=== PATIENT | female | born 1945 | race Caucasian/White ===

== ENCOUNTER 2020-10-07 20:37 | Emergency (ER) | payer MEDICARE, SELFPAY ==
--- NOTE | ~2020-10-07 | CT_ITS ---
EXAMINATION: CT brain wo [facility] EXAM DATE: 10/07/2020 22:30 INDICATION: Weakness, confusion. Headache. Dizziness. TECHNIQUE: Spiral CT of the head was performed without contrast. Axial, coronal and sagittal images were reviewed. The dose-length product (DLP) for this examination was 681.00 mGy-cm. The exposure w as tailored according to patient size, and iterative reconstruction (ASIR) was used as additional dos e reduction technique. There is no prior study for comparison. FINDINGS: There is no acute intraparenchymal hemorrhage. No evidence of intraparenchymal brain mass lesion. No evidence of acute infarction. Please note that initial head CT has limited sensitivity f or small or acute infarctions. There is mild periventricular and subcortical hypodensity, nonspecific but probably related to small vessel ischemic disease. There is moderate prominence of the sulci a nd ventricles related to cerebral atrophy. There is intracranial carotid arteriosclerosis. There a re no extra-axial collections. There is no mass effect or midline shift. Patient has had bilateral ocular lens surgery. Soft tissue is unremarkable. The visualized sinuses and mastoid air cells are well aerated. IMPRESSION: 1. No acute intracranial findings. 2. Chronic age related findings. Reviewed, dictated and finalized at location A.
--- NOTE | ~2020-10-07 | XR_ITS ---
EXAMINATION: XR chest 1V portable EXAM DATE: 10/07/2020 22:30 INDICATION: Weakness with SOB. Diabetic. TECHNIQUE: Portable AP frontal chest x-ray was obtained. There is no prior study for comparison. FINDINGS: Hyperinflation. No confluent consolidation, pneumothorax or pleural effusion suspected. The bones are osteopenic. There are bony degenerative changes. Probable moderate-sized gastroesophageal hiatal hernia. IMPRESSION: 1. No acute cardiopulmonary findings. 2. Moderate hiatal hernia. 3. Hyperinflation. Reviewed, dictated and finalized at location A.
[2020-10-07 21:10] VITALS: BP 144/88; PULSE 105; RESP 20; TEMP 36.6; O2SAT 96
[2020-10-07 21:41] LABS: Glucose Point of Care > 450 mg/dl (65-105)
--- NOTE | 2020-10-07 21:41 | ECG_ITS ---
Measurements Intervals [place] Rate: 92 P: 23 ID: [id number] QRS: -26 QRSD: 102 T: 41 QT: 343 QTc: 425 Interpretive Statements SINUS RHYTHM DELAYED PRECORDIAL R/S TRANSITION BORDERLINE ECG Electronically Signed On 10-08-2020 6:27:06 CDT by Guille Villagran D.O.
--- NOTE | 2020-10-07 21:49 | ED.WEAKNESS ---
HPI - Weakness General Chief complaint: Weakness Stated complaint: high blood sugar Time Seen by Provider: 10/07/20 21:12 Source: patient, family, RN notes reviewed and old records reviewed Mode of arrival: ambulatory Limitations: no limitations History of Present Illness HPI Narrative: BG was > 600. Pt felt very weak MD Complaint: generalized weakness and lack of energy Onset (ago): day(s) (1) Duration: constant Location: generalized Severity: mild Relieving factors: none Exacerbating factors: none Related Data Home Medications Medication Instructions Recorded Confirmed allopurinol 300 mg PO DAILY 10/07/20 10/07/20 apixaban [Eliquis] 2.5 mg PO BID 10/07/20 10/07/20 atorvastatin 40 mg PO DAILY 10/07/20 10/07/20 isosorbide mononitrate 20 mg PO DAILY 10/07/20 10/07/20 melatonin 10 mg PO HS PRN 10/07/20 10/07/20 pantoprazole 40 mg PO QAM 10/07/20 10/07/20 trazodone 100 mg PO HS 10/07/20 10/07/20 Allergies Allergy/AdvReac Type Severity Reaction Status Date / Time Penicillins Allergy Unknown Verified 10/07/20 21:49 Review of Systems Review of Systems: All systems reviewed & are unremarkable except as noted in HPI and below Constitutional: Constitutional: Reports as per HPI and Reports no additional constitutional complaints Eyes: Eyes: Reports as per HPI and Reports no additional eye complaints ENT: Reports system reviewed and no additional complaints, except as documented and Reports as per HPI Cardiovascular: Cardiovascular: Reports as per HPI and Reports no additional cardiovascular complaints Respiratory: Respiratory: Reports as per HPI and Reports no additional respiratory complaints Gastrointestinal: Gastrointestinal: Reports as per HPI and Reports no additional gastrointestinal complaints Genitourinary: Genitourinary: Reports no additional female genitourinary complaints and Reports as per HPI Musculoskeletal: Musculoskeletal: Reports no additional musculoskeletal complaints and Reports as per HPI Integumentary/Breasts: Skin/Breast: Reports system reviewed and no additional complaints, except as docu and Reports as per HPI Neurologic: Reports system reviewed and no additional complaints, except as documented, Reports as per HPI and Reports weakness Psychiatric: Psychiatric: Reports no additional psychiatric complaints and Reports as per HPI Endocrine: Endocrine: Reports no additional endocrine complaints and Reports as per HPI Hematologic/Lymphatic: Hematologic/Lymphatic: Reports no additional hematologic/lymphatic complaints and Reports as per HPI Allergic/Immunologic: Allergic/Immunologic: Reports no additional allergic/immunologic complaints and Reports as per HPI [facility] Past Medical History Medical History (Updated 10/08/20 @ 00:52 by Austin Adair MD) Diabetes mellitus Exam Const: General: no acute distress and alert Nutritional Appearance: well nourished Orientation/consciousness: patient oriented x3 HENMT: Head: normal to inspection Ears: external ears normal and TM's normal bilaterally General nose exam: Normal external nose present and Normal nares present Face and sinus: normal facial exam Mouth: Yes lip normal, Yes moist mucous membranes and Yes Abnormal oral and palatal mucosa present Teeth and gingiva: dentition normal Eyes: Conjunctivae: conjunctivae normal Pupils: Equal, round and reactive pupils present EOM: EOMs intact bilaterally Neck: Neck: normal visual inspection Chest: Chest palpation & inspection: normal inspection of the chest Resp: Effort & Inspection: normal respiratory effort Auscultation: clear to auscultation bilaterally Cardio: Rate: regular rate Rhythm: regular rhythm GI: GI Palp: Yes Soft to palpation (non-tender) : General: Yes no CVA tenderness Back/Spine/Pelvis: Back: no CVA tenderness Skin: General skin exam: normal color Rashes: no rashes Neuro: General: patient oriented x3, moves all extremities, no focal motor deficits and
[2020-10-07] MEDS: INSULIN HUMAN REGULAR (*BKC) 100 UNITS/ML 15 UNITS IV PUSH (21:56)
[2020-10-07] MEDS: SODIUM CHLORIDE 0.9% IV 1,000 ML 999 ML IV CONT ×2 (21:57→23:01)
[2020-10-07 22:15] LABS: Hematocrit 31.9 % (35.0-42.0); Hemoglobin 10.1 g/dL (11.7-13.8); Immature Granulocyte Absolute 0.07 K/mm3 (0.00-0.00); Immature Granulocyte Percent A 0.8 % (0.0-0.0); Lymphocytes Absolute Auto 0.52 K/mm3 (1.10-4.50); Lymphocytes Percent Auto 6.3 % (18.0-42.0); Mean Corpuscular HGB Conc 31.7 g/dL (32.0-36.0); Mean Corpuscular Hemoglobin 25.6 pg (27.0-31.0); Mean Corpuscular Volume 80.8 fL (78.0-102.0); Mean Platelet Volume 10.4 fl (9.2-11.8); Monocytes Absolute Auto 0.03 K/mm3 (0.10-0.90); Monocytes Percent Auto 0.4 % (2.0-11.0); Neutrophils Absolute Auto 7.7 K/mm3 (1.7-7.2); Neutrophils Percent Auto 92.5 % (50.0-70.0); Platelet Count Result 315 K/mm3 (150-420); Red Blood Count 3.95 M/mm3 (4.20-5.40); Red Cell Distribution Width 15.9 % (11.6-14.4); White Blood Count 8.3 K/mm3 (4.8-10.8)
[2020-10-07 22:30] LABS: Hemoglobin A1C 13.6 % (<5.7)
[2020-10-07 22:34] LABS: Lactic Acid Reflex 2.5 mmol/L (0.4-2.0)
[2020-10-07 22:37] LABS: Alanine Aminotransferase 13 U/L (14-59); Albumin Level 3.2 g/dL (3.4-5.0); Alkaline Phosphatase 114 U/L (46-116); Anion Gap 18 mmol/L (8-16); Aspartate Amino Transferase < 10 U/L (15-37); Bilirubin,Total 0.3 mg/dL (0.00-1.00); Blood Urea Nitrogen 68 mg/dL (7-18); Calcium 8.2 mg/dL (8.5-10.1); Carbon Dioxide 18 mmol/L (21-32); Chloride 93 mmol/L (98-108); Estimated CRCL calculation 16 ml/min; Estimated Glomerular Filt Rate 19; Lipase 165 U/L (73-393); Potassium 4.8 mmol/L (3.5-5.1); Sodium 129 mmol/L (136-145); Total Protein 7.3 g/dL (6.4-8.2)
[2020-10-07 22:40] LABS: Acetone Negative (Negative)
[2020-10-07 22:46] LABS: Glucose > 800 mg/dL (70-99); Osmolality Calculated 327 mOsm/kg (285-295)
[2020-10-07 22:51] LABS: Glucose Point of Care > 450 mg/dl (65-105)
[2020-10-07] MEDS: INSULIN HUMAN REGULAR (*BKC) 100 UNITS/ML 20 UNITS IV PUSH (23:01)
[2020-10-07 23:18] LABS: HCO3 VBG 19.3 mEq/l (24.0-30.0); PCO2 VBG 39.2 mmHg (42.0-48.0); PO2 VBG 29.1 mmHg (35.0-45.0); pH VBG 7.31 (7.33-7.43)
[2020-10-07 23:19] LABS: Device ROOM AIR
[2020-10-07 23:25] LABS: Add Urine Microscopic? YES; Appearance Urine Clear (Clear); Bilirubin Urine Negative (Negative); Blood Urine Negative (Negative); Color Urine Light Yellow (Yellow); Glucose Urine UA 3+ (Negative); Ketones Urine Negative (Negative); Leukocyte Esterase Ur Negative (Negative); Nitrate Urine Negative (Negative); Protein Urine Negative (Negative); Specific Grav Ur <= 1.005 (1.010-1.020); Urobilinogen Urine 0.2 mg/dL (0.2-1.0)
[2020-10-07 23:31] LABS: Bacteria Urine None seen /hpf; RBC Urine 0-2 /hpf (0-2); Squamous Epithelial Cell Urine None seen /hpf (Few); WBC Urine 0-3 /hpf (0-3)
[2020-10-07 23:47] LABS: Glucose Point of Care 357 mg/dl (65-105)
[2020-10-08 00:49] LABS: Glucose Point of Care 275 mg/dl (65-105)
[2020-10-08] MEDS: SODIUM BICARBONATE 8.4% 50 MEQ/50 ML SYRINGE IV PUSH (00:49)
[2020-10-08 00:54] VITALS: BP 130/94; PULSE 95; RESP 20; TEMP 36.6; O2SAT 96
== END 2020-10-08 00:56 | disposition home or self-care (01) ==
PROVIDERS: Emergency Provider Emergency Medicine
DX: E11.9 Type 2 diabetes mellitus without complications (principal)
CPT/HCPCS: 36415; 70450; 71045; 80053; 81001; 82010; 82803; 82948; 83036; 83605; 83690; 85025; 93005; 96361; 96374; 96375; 96376; 99283; 99284; J1815; J7030

== ENCOUNTER 2022-08-24 21:17 | Emergency (ER) | payer MEDICARE, SELFPAY ==
--- NOTE | ~2022-08-24 | CT_ITS ---
EXAMINATION: CT brain wo con INDICATION: Seizure and headache COMPARISON: 10/07/2020 TECHNIQUE: Standard unenhanced head CT. The dose-length product (DLP) was 605.33 mGy-cm. The mA was a djusted according to patient size. Iterative reconstruction technique was employed. FINDINGS: There is no acute intraparenchymal hemorrhage. No evidence of mass lesion. No evidence of a cute infarction. There is mild periventricular and subcortical hypodensity probably related to small vessel ischemic disease. There is mild prominence of the sulci and ventricles related to cerebral atr ophy. Intracranial calcified cerebral atherosclerosis is noted. There are no extra-axial collections. There is no mass effect or midline shift. Changes in the globes are likely from ocular lens surgery. The visualized sinuses and mastoid air cells are well aerated. IMPRESSION: 1. No acute intracranial abnormality. 2. Age related findings. Reviewed, dictated and finalized at location F.
[2022-08-24 21:17] VITALS: BP 158/96; PULSE 104; RESP 18; TEMP 36.4; O2SAT 96
[2022-08-24] MEDS: diphenhydrAMINE HCl INJ 50 MG/ML VIAL 25 MG IV PUSH (22:43)
[2022-08-24] MEDS: SODIUM CHLORIDE 0.9% IV 2,000 ML 999 ML IV CONT (22:43)
[2022-08-24] MEDS: PROCHLORPERAZINE EDISYLATE 10 MG/2 ML VIAL IV PUSH (22:44)
[2022-08-24 23:38] VITALS: PULSE 98; RESP 17
[2022-08-24 23:39] VITALS: BP 168/78; PULSE 94; RESP 19; O2SAT 97
[2022-08-24 23:56] VITALS: PULSE 92; RESP 17
--- NOTE | 2022-08-24 23:58 | ED.GENADULT ---
HPI - General Adult General Chief complaint: Headache Stated complaint: saul munoz Time Seen by Provider: 08/24/22 21:33 History of Present Illness HPI narrative: this is a 69-year-old female presenting ED with a chief complaint of headache. It started around 5:00 p.m.. It started in the front of her head and is now throughout her entire skull. It is 10 out 10 intensity. It is getting worse. She has had headaches in the past but feels this 1 is worse in intensity. No exacerbating alleviating factors. No loss of consciousness visual changes or neurologic deficits. She has taken Tylenol and oxycodone with no relief. No trauma Related Data Home Medications Medication Instructions Recorded Confirmed allopurinol 300 mg tablet 300 mg PO DAILY 10/07/20 10/07/20 apixaban 2.5 mg tablet (Eliquis) 2.5 mg PO BID 10/07/20 10/07/20 atorvastatin 40 mg tablet 40 mg PO DAILY 10/07/20 10/07/20 isosorbide mononitrate 20 mg tablet 20 mg PO DAILY 10/07/20 10/07/20 melatonin 10 mg tablet 10 mg PO HS PRN Insomnia 10/07/20 10/07/20 pantoprazole 40 mg tablet,delayed 40 mg PO QAM 10/07/20 10/07/20 release trazodone 100 mg tablet 100 mg PO HS 10/07/20 10/07/20 Allergies Allergy/AdvReac Type Severity Reaction Status Date / Time Penicillins Allergy Unknown Verified 10/07/20 21:49 [facility] Past Medical History Medical History Diabetes mellitus Exam Narrative: APPEARANCE: No apparent distress. Head: atraumatic. EYES: EOMI, NOSE: Atraumatic NECK: Trachea midline RESPIRATORY: No increased rate of breathing CARDIOVASCULAR: RRR, ABDOMINAL: Non-distended MUSCULOSKELETAl: No obvious deformities NEURO: Alert. Cranial nerves 2-12 grossly intact. Sensation light touch, motor function cerebellar function intact for 4 extremities. Gait exam was deferred SKIN:: Warm, dry. Normal color PSYCHIATRIC: Normal affect Course Vital Signs Vital signs: Vital Signs Temperature 97.6 F 08/24/22 21:17 Pulse Rate 104 H 08/24/22 21:17 Respiratory Rate 18 08/24/22 21:17 Blood Pressure 158/96 H 08/24/22 21:17 Pulse Oximetry 96 08/24/22 21:17 Oxygen Delivery Room Air 08/24/22 21:17 Temperature 97.6 F 08/24/22 21:17 Pulse Rate 93 08/25/22 00:00 Respiratory Rate 17 08/25/22 00:00 Blood Pressure 150/78 H 08/25/22 00:00 Pulse Oximetry 98 08/25/22 00:00 Oxygen Delivery Room Air 08/24/22 21:17 Medical Decision Making MDM Narrative Medical decision making narrative: -Presentation: 77-year-old female presenting with severe headache. 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 She will be discharged back to fpc with return precautions. -RX Vital Signs Vital Signs: Vital Signs Temperature 97.6 F 08/24/22 21:17 Pulse Rate 104 H 08/24/22 21:17 Respiratory Rate 18 08/24/22 21:17 Blood Pressure 158/96 H 08/24/22 21:17 Pulse Oximetry 96 08/24/22 21:17 Oxygen Delivery Room Air 08/24/22 21:17 Temperature 97.6 F 08/24/22 21:17 Pulse Rate 93 08/25/22 00:00 Respiratory Rate 17 08/25/22 00:00 Blood Pressure 150/78 H 08/25/22 00:00 Pulse Oximetry 98 08/25/22 00:00 Oxygen Delivery Room Air 08/24/22 21:17 Discharge Plan Discharge Clinical Impression: Headache Patient Disposition: Home, Self-Care Condition: Stable Instructions: Antibi
[2022-08-25] VITALS: BP 150/78; PULSE 93; RESP 17; O2SAT 98
[2022-08-25 01:14] VITALS: BP 153/92; PULSE 96; RESP 20; O2SAT 95
== END 2022-08-25 03:24 ==
PROVIDERS: Emergency Provider Emergency Medicine
DX: R51.9 Headache, unspecified (principal); E11.9 Type 2 diabetes mellitus without complications; Z79.01 Long term (current) use of anticoagulants; Z79.84 Long term (current) use of oral hypoglycemic drugs
CPT/HCPCS: 70450; 96361; 96374; 96375; 99284; J0780; J1200; J7030

== ENCOUNTER 2023-05-13 18:01 | Inpatient (IN) | payer MEDICARE, MEDICAID, SELFPAY ==
[2023-05-13] VITALS (8 sets, daily range): BP systolic 122–161; BP diastolic 73–99; PULSE 102–121; RESP 15–23; TEMP 36.4; O2SAT 95–100
--- NOTE | ~2023-05-13 | XR_ITS ---
EXAMINATION: XR chest 1V portable Exam Date/Time: 05/13/2023 18:45 PORTFOLIO STRATEGIST HISTORY: SOB, recent rsv PNA dx. WHEEZING. HX COPD Comparison: 10/07/2020. RESULT: Lines, tubes, and devices: Coronary stent. Lungs and pleura: Senescent/emphysematous change. No focal consolidation, pleural effusion, or pneum othorax. Cardiomediastinal silhouette: Stable. Hiatal hernia. Other: No acute osseous or upper abdominal finding. IMPRESSION: No acute cardiopulmonary process. Reviewed, dictated and finalized at location K. FOLIO STRATEGIST
--- NOTE | ~2023-05-13 | CT_ITS ---
EXAMINATION: CTA chest PE protocol DATE: 05/13/2023 21:16 INDICATION: SOB, elev Dimer, tachypneic, tachycardia TECHNIQUE: Computed tomography angiography (CTA) of the chest was performed with 100 mL Omnipaque-350 intravenous contrast timed to evaluate the pulmonary arteries. Coronal maximum intensity projection 3D-reconstructions were created by the technologist. The dose-length product (DLP) was 385.49 mGy-cm. Automated exposure control and iterative reconstruction technique were employed. COMPARISON: X-ray chest, same date. FINDINGS: Lung parenchyma and airways: Senescent changes. Bilateral scar/atelectasis.. Pleura: Unremarkable. Thoracic inlet, axillae and chest wall: Unremarkable. Thoracic aorta: Moderate arch calcification. 8 x 14 mm focal outpouching off the inferior aspect of t he aortic arch, with associated calcified and noncalcified plaque. No significant dilation or dissect ion. Mediastinum: Moderate hiatal hernia. Heart and pericardium: Left ventricular hypertrophy. Aortic valve calcifications. Coronary artery calcifications: Moderate. Coronary stent. Upper abdomen: 14 mm indeterminate density left renal upper pole lesion. Bones: No acute osseous finding. Multilevel endplate deformities as can be seen with osteoporosis. Mi ld height loss and vertebroplasty cement in an upper lumbar vertebral body Pulmonary arteries: Study quality: Adequate. No pulmonary emboli detected. IMPRESSION: No CT evidence of acute pulmonary embolus. No acute process detected in the chest. 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 14 mm indeterminate density left upper pole renal lesion, recommend nonemergent but timely MRI or CT without and with contrast for further evaluation. Reviewed, dictated and finalized at location K. T SUPERVISOR
--- NOTE | ~2023-05-13 | XR_ITS ---
EXAMINATION: XR chest 2V DATE: 05/15/2023 12:20 INDICATION: COPD, flu positive TECHNIQUE: PA and lateral views of the chest are obtained. COMPARISON: 05/13/2023 FINDINGS: The lungs are free of acute opacities. No pleural effusion or pneumothorax. The heart size is normal. A moderate-sized sliding hiatal hernia is noted. There is moderate thoracic spondylosis. V ertebroplasty changes noted in the lumbar spine. There is a healed fracture of the proximal left reed marlen. IMPRESSION: 1. No acute cardiopulmonary abnormality. Reviewed, dictated and finalized at location L. ECTION SYSTEMS TECHNICIAN
--- NOTE | 2023-05-13 18:22 | ECG_ITS ---
Measurements Intervals [place] Rate: 107 P: 12 CA: 140 QRS: -34 QRSD: 86 T: 12 QT: 329 QTc: 440 Interpretive Statements SINUS TACHYCARDIA LEFT AXIS DEVIATION [QRS AXIS < -30] PATTERN CONSISTENT WITH PULMONARY DISEASE BORDERLINE ECG COMPARED TO ECG 10/07/2020 21:54:31 SINUS TACHYCARDIA NOW PRESENT LEFT-AXIS DEVIATION NOW PRESENT Electronically Signed On 05-13-2023 18:31:51 STRAINER TENDER by Dc Mendez M.D.
--- NOTE | 2023-05-13 18:39 | ED.SOB ---
HPI - SOB/Dyspnea General Chief Complaint: Shortness of Breath/Dyspnea Stated Complaint: Shortness of breath Time Seen by Provider: 05/13/23 18:20 Source: patient and family (daughter (Shirlene) and son (Marcus)) Mode of arrival: ambulatory Limitations: no limitations History of Present Illness HPI Narrative: 77-year-old female past medical history COPD not on oxygen presents with shortness of breath labored breathing. She was recently diagnosed with RSV and pneumonia at [facility] in [place] and was on a course of antibiotic though cannot recall the name. Her symptoms had started 04/19/23, when she moved into [facility] living. Patient has been having diarrhea though attributes this to the recent antibiotic she has been on. Denies any lower extremity edema. She is on sliding scale insulin for her diabetes. SHe has been having a cough productive of yellow sputum. No chest pain. patient denies history of congestive heart failure although daughter states it is was listed as a diagnosis during a recent hospitalization. Not on a diuretic or any CHF specific medications. Patient is also concerned she has thrush given that she often gets this after breathing treatments. Related Data Home Medications Medication Instructions Recorded Confirmed allopurinol 300 mg tablet 300 mg PO DAILY 10/07/20 05/14/23 isosorbide mononitrate 20 mg tablet 20 mg PO DAILY 10/07/20 05/14/23 melatonin 10 mg tablet 10 mg PO HS PRN Insomnia 10/07/20 05/14/23 pantoprazole 40 mg tablet,delayed 40 mg PO BID 10/07/20 05/14/23 release albuterol sulfate 2.5 mg/3 mL 2.5 mg inhalation DAILY 05/14/23 05/14/23 (0.083 %) solution for nebulization amitriptyline 50 mg tablet 50 mg PO HS 05/14/23 05/14/23 benzonatate 100 mg capsule 100 mg PO PRN PRN Cough 05/14/23 05/14/23 budesonide-formoterol HFA 160 2 puff inhalation BID 05/14/23 05/14/23 mcg-4.5 mcg/actuation aerosol inhaler (Breyna) denosumab 60 mg/mL subcutaneous 60 mg subcut Q6M 05/14/23 05/14/23 syringe (Prolia) docusate sodium 100 mg capsule 100 mg PO PRN PRN Constipation 05/14/23 05/14/23 glipizide 2.5 mg tablet, extended 2.5 mg PO BID PRN hydration 05/14/23 05/14/23 release 24 hr hydroxyzine HCl 25 mg tablet 25 mg PO PRN PRN Itching 05/14/23 05/14/23 insulin aspart U-100 100 unit/mL See Rx Instructions .Route .COMPLEX 05/14/23 05/14/23 (3 mL) subcutaneous pen (Novolog FlexPen U-100 Insulin aspart) insulin glargine 100 unit/mL (3 14 unit subcut HS 05/14/23 05/14/23 mL) subcutaneous pen (Basaglar KwikPen U-100 Insulin) lidocaine HCl 2 % mucosal solution See Rx Instructions .Route .COMPLEX 05/14/23 05/14/23 (Lidocaine Viscous) naloxone 4 mg/actuation nasal spray 4 mg intranasal PRN PRN Opioid 05/14/23 05/14/23 Overdose nystatin 100,000 unit/mL oral 100,000 unit mucous membrane BID 05/14/23 05/14/23 suspension oxycodone-acetaminophen 5 mg-325 5 tablet PO PRN PRN Pain 05/14/23 05/14/23 mg tablet pen needle, diabetic, safety 30 05/14/23 05/14/23 gauge x 1/3 (Novofine Autocover) simvastatin 40 mg tablet 40 mg PO HS 05/14/23 05/14/23 triamcinolone acetonide 0.5 % See Rx Instructions .Route .COMPLEX 05/14/23 05/14/23 topical cream Allergies Allergy/AdvReac Type Severity Reaction Status Date / Time ciprofloxacin Allergy Unknown Verified 05/13/23 21:53 cyclobenzaprine Allergy Unknown Verified 05/13/23 21:53 hydromorphone Allergy Unknown Verified 05/13/23 21:53 latex Allergy Unknown Verified 05/13/23 21:53 Penicillins Allergy Unknown Verified 05/13/23 18:08 Sulfa (Sulfonamide Allergy Unknown Verified 05/13/23 21:53 Antibiotics) tetracycline Allergy Unknown Verified 05/13/23 21:53 [facility] Past Medical History Medical History Congestive heart failure Diabetes mellitus with insulin therapy Social History Social History (Updated 05/16/23 @ 10:35 by Sofi Garcia MD) Smoking packs per day: 2 Smo
[2023-05-13 18:41] LABS: Basophils Percent Auto 0.4 % (0.2-1.2); Eosinophils Absolute Auto 0.2 K/mm3 (0-0.3); Eosinophils Percent Auto 3.1 % (0-4.4); Hematocrit 28.4 % (37.0-47.0); Hemoglobin 8.7 g/dL (12.0-15.0); Immature Granulocyte Absolute 0.01 K/mm3 (0.00-0.031); Immature Granulocyte Percent A 0.2 % (0-0.5); Lymphocytes Absolute Auto 1.26 K/mm3 (0.9-3.2); Lymphocytes Percent Auto 26.2 % (18.3-44.2); Mean Corpuscular HGB Conc 30.6 g/dl (32-36); Mean Corpuscular Hemoglobin 24.6 pg (26-34); Mean Corpuscular Volume 80.2 fl (80-100); Mean Platelet Volume 10.5 fl (7.4-10.4); Monocytes Absolute Auto 0.3 K/mm3 (0.1-0.6); Monocytes Percent Auto 6.7 % (2.6-8.5); Neutrophils Absolute Auto 3.1 K/mm3 (1.3-6.7); Neutrophils Percent Auto 63.4 % (45.5-73.1); Platelet Count Result 293 k/mm3 (150-375); Red Blood Count 3.54 M/mm3 (4.2-5.4); Red Cell Distribution Width 18.6 % (11.5-14.5); White Blood Count 4.8 K/mm3 (4.5-10.0)
[2023-05-13 18:52] LABS: Alanine Aminotransferase 13 U/L (6-35); Albumin Level 3.9 g/dL (3.5-5.1); Alkaline Phosphatase 106 U/L (38-126); Anion Gap 11 mmol/L (8-16); Aspartate Amino Transferase 23 U/L (14-36); Bilirubin,Total 0.4 mg/dL (0.2-1.3); Blood Urea Nitrogen 24 mg/dL (7-17); Calcium 9.4 mg/dL (8.4-10.2); Carbon Dioxide 20 mmol/L (22-30); Chloride 108 mmol/L (98-107); Estimated CRCL calculation 42 ml/min; Estimated Glomerular Filt Rate > 60; Glucose 110 mg/dL (65-110); Magnesium 0.9 mg/dL (1.6-2.3); Potassium 4.3 mmol/L (3.4-5.0); Sodium 139 mmol/L (137-145)
[2023-05-13 18:54] LABS: D Dimer 1.24 ug/mL (<0.48)
[2023-05-13 19:03] LABS: Troponin I < 0.012 ng/mL (0.000-0.034)
[2023-05-13 19:27] LABS: NT Pro B Type Natriuretic Pept 4720 pg/mL (19.9-100)
[2023-05-13] MEDS: SODIUM CHLORIDE 0.9% IV 1,000 ML 999 ML IV CONT ×2 (19:49→23:00)
[2023-05-13] MEDS: MAGNESIUM SULF 2 GM/WATER 50ML 2 GM/50 ML BAG IVPB (20:30)
[2023-05-13] MEDS: ALBUTEROL SULFATE NEB 2.5 MG/3 ML INH INHALATION (22:10)
[2023-05-13] MEDS: IPRATROPIUM 0.5 MG/ALBUTEROL SULFATE 2.5 MG AMPUL.NEB 3 ML INHALATION (22:11)
[2023-05-13] MEDS: AZITHROMYCIN 250 MG TABLET 500 MG PO (22:54)
[2023-05-13] MEDS: predniSONE 20 MG TABLET 60 MG PO (22:54)
[2023-05-13 23:09] LABS: Glucose Point of Care 122 mg/dl (65-105)
[2023-05-14] VITALS (12 sets, daily range): BP systolic 134–150; BP diastolic 77–89; PULSE 100–118; RESP 18–26; TEMP 36.4–36.6; O2SAT 94–100; BMI 26.8
--- NOTE | 2023-05-14 00:20 | ADMGEN ---
This patient, Mayte Sanchez, was admitted to [facility] Room 304-02 at 2350. Patient/family oriented to hospital policies and general routines including ID bracelet, bed and alarms, visiting hours, pain management, procedures, bathroom and other care routines, personal items, smoking policy, room service/diet, and visiting hours. Information on how to activate the Rapid Response Team has been discussed. Patient/Family are encouraged to report perceived risks to care and to ask questions if they do not understand what they are told or what they should do.
[2023-05-14 00:23] LABS: Influenza A QL RT-PCR Positive (Negative); Influenza B QL RT-PCR Negative (Negative); RSV RNA, RT-PCR Negative (Negative); SARS-CoV-2 RNA PCR Negative (Negative)
--- NOTE | 2023-05-14 00:28 | PM.IMHP ---
H&P: HPI History of Present Illness Date/Time: 05/14/23 00:28 Chief Complaint: Shortness of breath. This is a 77-year-old female patient with a past medical history of COPD type 2 diabetes mellitus current right disease who came to the emergency room complaining of shortness of breath. Patient said that she was diagnosed with RSV pneumonia at [facility] seen at [place] about a month ago and was given a course of antibiotics. Patient said that she is still having a cough and having shortness of breath. Patient is awake alert not in any acute distress. Denies any fever chills dizziness lightheadedness no blurry vision no chest pains complains of shortness of breath and dry cough. Denies any nausea no vomiting no diarrhea no dysuria no muscle and joint pains. Vital signs in the emergency room was stable. CBC showed WBC count of 4.8 hemoglobin 8.7 hematocrit 28.4 platelets count 293. D-dimer was 1.24. CMP showed sodium 139 potassium 4.3 chloride of 108 carbon dioxide 20 BUN 24 creatinine 0.90. Glucose 122. Magnesium 0.9. ProBNP 4700 in 20. Influenza A positive. COVID RSV negative. CTA chest showed no evidence of acute pulmonary embolus. No acute process detected in the chest. 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 40 mm indeterminate density left upper pole renal lesion. Chest x-ray showed no acute cardiopulmonary process. Review of Systems Review of Systems: Twelve point review of system is done and is only positive what is dictated in the history of present illness. [facility] Past Medical History Medical History (Updated 05/14/23 @ 00:51 by Max Acevedo Ala, MD) Congestive heart failure Diabetes mellitus Meds Home Medications and Allergies Home Medications Medication Instructions Recorded Confirmed Type allopurinol 300 mg tablet 300 mg PO DAILY 10/07/20 10/07/20 History apixaban 2.5 mg tablet (Eliquis) 2.5 mg PO BID 10/07/20 10/07/20 History atorvastatin 40 mg tablet 40 mg PO DAILY 10/07/20 10/07/20 History isosorbide mononitrate 20 mg tablet 20 mg PO DAILY 10/07/20 10/07/20 History melatonin 10 mg tablet 10 mg PO HS PRN Insomnia 10/07/20 10/07/20 History pantoprazole 40 mg tablet,delayed 40 mg PO QAM 10/07/20 10/07/20 History release trazodone 100 mg tablet 100 mg PO HS 10/07/20 10/07/20 History glipizide 2.5 mg tablet, extended 2.5 mg PO BID #20 tabs 10/08/20 Rx release 24 hr Allergies Allergy/AdvReac Type Severity Reaction Status Date / Time ciprofloxacin Allergy Unknown Verified 05/13/23 21:53 cyclobenzaprine Allergy Unknown Verified 05/13/23 21:53 hydromorphone Allergy Unknown Verified 05/13/23 21:53 latex Allergy Unknown Verified 05/13/23 21:53 Penicillins Allergy Unknown Verified 05/13/23 18:08 Sulfa (Sulfonamide Allergy Unknown Verified 05/13/23 21:53 Antibiotics) tetracycline Allergy Unknown Verified 05/13/23 21:53 Vital Signs Vital Signs - 24 hr 05/13/23 18:05 05/13/23 20:30 05/13/23 22:12 Temperature 97.6 F Pulse Rate 120 H 102 H 110 H Respiratory Rate 22 H 19 19 Blood Pressure 150/99 H 161/88 H Pulse Oximetry 96 100 Oxygen Delivery Room Air 05/13/23 22:23 05/13/23 23:25 05/13/23 23:30 Temperature Pulse Rate 120 H 118 H 121 H Respiratory Rate 23 H 18 Blood Pressure 127/79 Pulse Oximetry 95 Oxygen Delivery 05/13/23 23:30 05/13/23 23:31 05/13/23 23:36 Temperature Pulse Rate 118 H Respiratory Rate 15 Blood Pressure 122/73 Pulse Oximetry 96 96 98 Oxygen Delivery Room Air Room Air Exam Const: Other: Awake alert not in any distress. HENMT: Other: Normocephalic atraumatic. Neck: Other: Supple no thyromegaly. Resp: Other: Clear to auscultation bilaterally. Cardio: Other: S1-S2 regular no murmur heard. GI: Other: Soft nontender good bowel sounds. Neuro: Other: No focal deficit. Extrem: Other: No pedal edema. H&P: Results
[2023-05-14] MEDS: ACETAMINOPHEN 325 MG TABLET 650 MG PO ×2 (00:41→15:21)
[2023-05-14] MEDS: IPRATROPIUM 0.5 MG/ALBUTEROL SULFATE 2.5 MG AMPUL.NEB 3 ML INHALATION ×4 (01:56→19:33)
[2023-05-14 02:00] LABS: Glucose Point of Care 180 mg/dl (65-105)
[2023-05-14] MEDS: methylPREDNISolone SOD SUCC 40 MG VIAL 36.5 MG IV PUSH ×2 (09:53→20:21)
[2023-05-14] MEDS: OSELTAMIVIR PHOSPHATE 75 MG CAPSULE PO ×2 (09:53→20:22)
[2023-05-14 12:09] LABS: Glucose Point of Care 346 mg/dl (65-105)
[2023-05-14] MEDS: INSULIN ASPART (*BKC) 100 UNITS/ML SUB-Q ×2 (12:48→17:31)
[2023-05-14] MEDS: BENZONATATE 100 MG CAPSULE 200 MG PO ×2 (15:21→20:22)
[2023-05-14 16:21] LABS: Glucose Point of Care 415 mg/dl (65-105)
--- NOTE | 2023-05-14 16:56 | PM.IMPN ---
Progress Note: A&P Assessment and Plan (1) COPD exacerbation: Code(s): J44.1 - Chronic obstructive pulmonary disease with (acute) exacerbation Status: Acute (2) Asthma exacerbation in COPD: Code(s): J44.1 - Chronic obstructive pulmonary disease with (acute) exacerbation; J45.901 - Unspecified asthma with (acute) exacerbation Status: Acute (3) Diabetes mellitus: Code(s): E11.9 - Type 2 diabetes mellitus without complications Status: Acute (4) Influenza A: Code(s): J10.1 - Influenza due to other identified influenza virus with other respiratory manifestations Status: Acute Plan Place patient under observation status Oxygen via nasal cannula ordered to keep O2 sats more than 92% Solu-Medrol 36.5 mg IV q12 hrs started on the floor to be tapered as per clinical response Patient started on oral Tamiflu for influenza A Continue with influenza precautions Sputum cultures ordered Follow-up on blood and sputum cultures DuoNeb breathing treatments ordered as needed Ambulate on the floor with assistance DC planning once patient is medically stable and breathing is back to baseline ? Patient seen and examined at bedside during my morning rounds ? Collaborated with patient's nurse at the bedside in detail and addressed all concerns ? Labs, electrolytes, radiology, investigations and test results reviewed ? Consult/Nursing/Ancilliary notes on the chart reviewed and appreciated ? Spoke with patient/family at the bedside and answered all the questions that they had Repeat labs in a.m. Electrolyte replacement as per protocol. Patient will be monitored very closely on the floor. Further recommendations as per the hospital course. Time Spent With Patient Time with patient: 15 - 25 minutes Subjective Date/time seen: 05/14/23 16:56 Interval history: Patient lying in bed. Feels better since admission Review of Systems Review of Systems: 14 systems were reviewed with pertinent positives and negatives per HPI. Except as documented in the HPI/progress notes, all other systems were reviewed and are negative. All systems reviewed & are unremarkable except as noted in HPI and below Exam Narrative: PHYSICAL EXAMINATION: Vital signs: Please see the chart General physical exam: Patient lying in bed, pleasant and cooperative with exam, appears to be weak tired and fatigued Head/eyes: Atraumatic, EOMI, PERRLA ENT: Moist mucous membranes, nasal passages clear Neck: Supple, full range of motion, trachea midline CVS: S1 + S2, regular rate and rhythm, no murmurs Respiratory: Bilaterally fair air entry in both lung rankin, ++ B/L crackles, symmetric chest expansion, ++ scattered bilateral wheezing Abdomen: Soft, non-tender, bowel sounds +ve, no organomegaly Extremities: No clubbing, no cyanosis, no edema, no calf tenderness Musculoskeletal: Moves all, adequate range of motion, no muscle spasms Skin: Warm, dry, no jaundice, no cyanosis Neurological: Awake, alert, oriented x 3, cranial nerves II-XII intact, no focal neurological deficits Psychiatric: Normal mood, non suicidal Objective Data Vital Signs Vital Signs: Vital Signs - 24 hr 05/13/23 18:05 05/13/23 20:30 05/13/23 22:12 Temperature 36.4 C Pulse Rate 120 H 102 H 110 H Respiratory Rate 22 H 19 19 Blood Pressure 150/99 H 161/88 H Pulse Oximetry 96 100 Oxygen Delivery Room Air 05/13/23 22:23 05/13/23 23:25 05/13/23 23:30 Temperature Pulse Rate 120 H 118 H 121 H Respiratory Rate 23 H 18 Blood Pressure 127/79 Pulse Oximetry 95 Oxygen Delivery 05/13/23 23:30 05/13/23 23:31 05/13/23 23:36 Temperature Pulse Rate 118 H Respiratory Rate 15 Blood Pressure 122/73 Pulse Oximetry 96 96 98 Oxygen Delivery Room Air Room Air 05/14/23 00:30 05/14/23 01:57 05/14/23 02:08 Temperature 36.5 C Pulse Rate 113 H 115 H 112 H Respiratory Rate 20 20 20 Blood Pressure 135/79 Pulse Oximetry 94 Oxygen
[2023-05-14] MEDS: INSULIN ASPART (*BKC) 100 UNITS/ML 6 UNITS SUB-Q (17:30)
--- NOTE | 2023-05-14 17:51 | PC.NURSE ---
Pt blood sugar has been increasing throughout the day. Pt has been increased from low dose to moderate dose sliding scale and 6 units one time dose ordered. Pt has participated and contributed in plan of care. Pt reports having headache and was treated with PO tylenol. Pt was also given tessalon pearls to help with coughing. Pt has been monitored for any changes in status and will continue to be monitored. Pt has participated and contributed in plan of care.
[2023-05-14] MEDS: MAGNESIUM SULF 4 GM/WATER100ML 4 GM/100 ML BAG IVPB (20:22)
[2023-05-14 20:48] LABS: Glucose Point of Care 324 mg/dl (65-105)
[2023-05-14] MEDS: INSULIN GLARGINE (*BKC) 100 UNITS/ML 14 UNITS SUB-Q (21:07)
[2023-05-15] VITALS (11 sets, daily range): BP systolic 124–138; BP diastolic 76–83; PULSE 102–113; RESP 16–22; TEMP 35.6–36.6; O2SAT 96–98
[2023-05-15] MEDS: IPRATROPIUM 0.5 MG/ALBUTEROL SULFATE 2.5 MG AMPUL.NEB 3 ML INHALATION ×4 (02:24→19:36)
[2023-05-15] MEDS: ACETAMINOPHEN 325 MG TABLET 650 MG PO ×3 (06:01→20:08)
[2023-05-15] MEDS: BENZONATATE 100 MG CAPSULE 200 MG PO ×3 (06:01→21:24)
[2023-05-15 07:56] LABS: Glucose Point of Care 312 mg/dl (65-105)
[2023-05-15] MEDS: OSELTAMIVIR PHOSPHATE 75 MG CAPSULE PO ×2 (08:14→20:09)
[2023-05-15] MEDS: INSULIN ASPART (*BKC) 100 UNITS/ML SUB-Q ×4 (08:15→21:19)
[2023-05-15 08:51] LABS: Hematocrit 26.5 % (37.0-47.0); Hemoglobin 8.1 g/dL (12.0-15.0); Mean Corpuscular HGB Conc 30.6 g/dl (32-36); Mean Corpuscular Hemoglobin 24.3 pg (26-34); Mean Corpuscular Volume 79.3 fl (80-100); Mean Platelet Volume 10.1 fl (7.4-10.4); Platelet Count Result 323 k/mm3 (150-375); Red Blood Count 3.34 M/mm3 (4.2-5.4); Red Cell Distribution Width 18.2 % (11.5-14.5); White Blood Count 11.7 K/mm3 (4.5-10.0)
[2023-05-15 08:58] LABS: Anion Gap 11 mmol/L (8-16); Blood Urea Nitrogen 24 mg/dL (7-17); Calcium 8.9 mg/dL (8.4-10.2); Carbon Dioxide 19 mmol/L (22-30); Chloride 105 mmol/L (98-107); Estimated CRCL calculation 42 ml/min; Estimated Glomerular Filt Rate > 60; Glucose 316 mg/dL (65-110); Magnesium 2.6 mg/dL (1.6-2.3); Phosphorus 2.9 mg/dL (2.5-4.5); Potassium 4.1 mmol/L (3.4-5.0); Sodium 135 mmol/L (137-145)
[2023-05-15] MEDS: methylPREDNISolone SOD SUCC 40 MG VIAL 36.5 MG IV PUSH ×2 (08:58→20:08)
[2023-05-15 09:19] LABS: Band Neutrophils Percent 23 % (0-6); Monocytes Absolute Manual 0.11 K/mm3 (0.1-0.90); Monocytes Percent Manual 1 % (3-9); Neutrophils Percent Manual 70 % (46-73); Total Cells Counted 100
[2023-05-15 09:20] LABS: Hypochromasia 1+ (NORMAL); Ovalocytes 1+ (NORMAL); Platelet Estimate Adequate (Adequate); Schistocytes None Seen (NORMAL)
[2023-05-15 11:47] LABS: Glucose Point of Care 296 mg/dl (65-105)
--- NOTE | 2023-05-15 12:34 | PCCCNOTE ---
On 05/15/23, the student, [Jelly Bolivar ], provided care and completed [facility] documentation on this patient. I have reviewed the student's documentation and agree with the findings.
[2023-05-15 17:09] LABS: Glucose Point of Care 321 mg/dl (65-105)
--- NOTE | 2023-05-15 17:49 | PM.IMPN ---
Progress Note: A&P Assessment and Plan (1) COPD exacerbation: Code(s): J44.1 - Chronic obstructive pulmonary disease with (acute) exacerbation Status: Acute (2) Asthma exacerbation in COPD: Code(s): J44.1 - Chronic obstructive pulmonary disease with (acute) exacerbation; J45.901 - Unspecified asthma with (acute) exacerbation Status: Acute (3) Diabetes mellitus: Code(s): E11.9 - Type 2 diabetes mellitus without complications Status: Acute (4) Influenza A: Code(s): J10.1 - Influenza due to other identified influenza virus with other respiratory manifestations Status: Acute Plan Place patient under observation status Patient remains on room air oxygen and is not requiring any supplemental oxygen Solu-Medrol 36.5 mg IV q12 hrs started on the floor to be tapered as per clinical response Patient has many elevated WBCs secondary to steroids Patient started on oral Tamiflu for influenza A Continue with influenza precautions Sputum cultures ordered Follow-up on blood and sputum cultures DuoNeb breathing treatments ordered as needed Ambulate on the floor with assistance DC planning once patient is medically stable and breathing is back to baseline ? Patient seen and examined at bedside during my morning rounds ? Collaborated with patient's nurse at the bedside in detail and addressed all concerns ? Labs, electrolytes, radiology, investigations and test results reviewed ? Consult/Nursing/Ancilliary notes on the chart reviewed and appreciated ? Spoke with patient/family at the bedside and answered all the questions that they had Repeat labs in a.m. Electrolyte replacement as per protocol. Patient will be monitored very closely on the floor. Further recommendations as per the hospital course. Time Spent With Patient Time with patient: 15 - 25 minutes Subjective Date/time seen: 05/15/23 17:49 Interval history: Patient seen and evaluated at bedside. Shortness of breath is slowly improving. Still complains of myalgias and weakness Review of Systems Review of Systems: 14 systems were reviewed with pertinent positives and negatives per HPI. Except as documented in the HPI/progress notes, all other systems were reviewed and are negative. All systems reviewed & are unremarkable except as noted in HPI and below Exam Narrative: PHYSICAL EXAMINATION: Vital signs: Please see the chart General physical exam: Patient lying in bed, pleasant and cooperative with exam, appears to be weak tired and fatigued Head/eyes: Atraumatic, EOMI, PERRLA ENT: Moist mucous membranes, nasal passages clear Neck: Supple, full range of motion, trachea midline CVS: S1 + S2, regular rate and rhythm, no murmurs Respiratory: Bilaterally fair air entry in both lung rankin, ++ B/L crackles, symmetric chest expansion, ++ scattered bilateral wheezing Abdomen: Soft, non-tender, bowel sounds +ve, no organomegaly Extremities: No clubbing, no cyanosis, no edema, no calf tenderness Musculoskeletal: Moves all, adequate range of motion, no muscle spasms Skin: Warm, dry, no jaundice, no cyanosis Neurological: Awake, alert, oriented x 3, cranial nerves II-XII intact, no focal neurological deficits Psychiatric: Normal mood, non suicidal Objective Data Vital Signs Vital Signs: Vital Signs - 24 hr 05/14/23 19:34 05/14/23 19:41 05/14/23 22:00 Temperature 36.6 C Pulse Rate 102 H 101 H 112 H Respiratory Rate 18 18 20 Blood Pressure 150/89 H Pulse Oximetry 100 Oxygen Delivery 05/15/23 02:27 05/15/23 02:33 05/15/23 06:00 Temperature 36.2 C L Pulse Rate 103 H 103 H 106 H Respiratory Rate 18 18 22 H Blood Pressure 138/83 Pulse Oximetry 98 Oxygen Delivery 05/15/23 09:03 05/15/23 09:03 05/15/23 09:20 Temperature Pulse Rate 110 H 113 H Respiratory Rate 20 20 Blood Pressure Pulse Oximetry 98 Oxygen Delivery Room Air 05/15/23 08:15 05/15/23 13:36 05/15/23 13:46 Temperature
[2023-05-15 20:46] LABS: Glucose Point of Care 223 mg/dl (65-105)
[2023-05-15] MEDS: INSULIN GLARGINE (*BKC) 100 UNITS/ML 14 UNITS SUB-Q (21:20)
[2023-05-16] VITALS (11 sets, daily range): BP systolic 125–142; BP diastolic 78–92; PULSE 88–114; RESP 15–20; TEMP 36.2–36.8; O2SAT 94–100
[2023-05-16] MEDS: IPRATROPIUM 0.5 MG/ALBUTEROL SULFATE 2.5 MG AMPUL.NEB 3 ML INHALATION ×4 (02:03→20:19)
[2023-05-16] MEDS: BENZONATATE 100 MG CAPSULE 200 MG PO ×3 (06:18→21:12)
[2023-05-16 06:53] LABS: Anion Gap 10 mmol/L (8-16); Blood Urea Nitrogen 25 mg/dL (7-17); Calcium 9.5 mg/dL (8.4-10.2); Carbon Dioxide 19 mmol/L (22-30); Chloride 109 mmol/L (98-107); Estimated CRCL calculation 47 ml/min; Estimated Glomerular Filt Rate > 60; Glucose 292 mg/dL (65-110); Potassium 4.1 mmol/L (3.4-5.0); Sodium 138 mmol/L (137-145)
[2023-05-16 07:26] LABS: Glucose Point of Care 268 mg/dl (65-105)
[2023-05-16 07:56] LABS: Basophils Percent Auto 0.1 % (0.2-1.2); Hematocrit 28.6 % (37.0-47.0); Hemoglobin 8.9 g/dL (12.0-15.0); Immature Granulocyte Absolute 0.11 K/mm3 (0.00-0.031); Immature Granulocyte Percent A 0.9 % (0-0.5); Lymphocytes Absolute Auto 0.49 K/mm3 (0.9-3.2); Lymphocytes Percent Auto 3.8 % (18.3-44.2); Mean Corpuscular HGB Conc 31.1 g/dl (32-36); Mean Corpuscular Hemoglobin 24.7 pg (26-34); Mean Corpuscular Volume 79.4 fl (80-100); Mean Platelet Volume 10.7 fl (7.4-10.4); Monocytes Absolute Auto 0.3 K/mm3 (0.1-0.6); Monocytes Percent Auto 2.6 % (2.6-8.5); Neutrophils Percent Auto 92.6 % (45.5-73.1); Platelet Count Result 439 k/mm3 (150-375); Red Cell Distribution Width 18.3 % (11.5-14.5); White Blood Count 12.9 K/mm3 (4.5-10.0)
[2023-05-16] MEDS: OSELTAMIVIR PHOSPHATE 75 MG CAPSULE PO ×2 (08:33→21:12)
[2023-05-16] MEDS: methylPREDNISolone SOD SUCC 40 MG VIAL 36.5 MG IV PUSH (08:34)
[2023-05-16] MEDS: INSULIN ASPART (*BKC) 100 UNITS/ML SUB-Q ×3 (08:36→17:25)
[2023-05-16 08:38] LABS: Anisocytosis 1+ (NORMAL); Hypochromasia 1+ (NORMAL); Microcytosis 1+ (NORMAL); Platelet Estimate Increased (Adequate)
[2023-05-16 08:39] LABS: Crenated RBC 1+ (NORMAL); Ovalocytes 1+ (NORMAL); Schistocytes None Seen (NORMAL)
[2023-05-16 11:34] LABS: Glucose Point of Care 232 mg/dl (65-105)
[2023-05-16] MEDS: PANTOPRAZOLE 40 MG TABLET PO ×2 (12:36→21:12)
--- NOTE | 2023-05-16 13:58 | PM.IMPN ---
Progress Note: A&P Assessment and Plan (1) COPD exacerbation: Code(s): J44.1 - Chronic obstructive pulmonary disease with (acute) exacerbation Status: Acute (2) Asthma exacerbation in COPD: Code(s): J44.1 - Chronic obstructive pulmonary disease with (acute) exacerbation; J45.901 - Unspecified asthma with (acute) exacerbation Status: Acute (3) Diabetes mellitus: Code(s): E11.9 - Type 2 diabetes mellitus without complications Status: Acute (4) Influenza A: Code(s): J10.1 - Influenza due to other identified influenza virus with other respiratory manifestations Status: Acute Plan Patient advanced to full inpatient status Patient remains on room air oxygen and is not requiring any supplemental oxygen Increased solu-Medrol to 60 mg mg IV q12 hrs started on the floor to be tapered as per clinical response Patient has elevated WBCs secondary to steroids Patient likely having superimposed bacterial bronchitis with greenish sputum production as the chest x-ray ruled out pneumonia Started patient on IV azithromycin 500mg daily Continue with oral Tamiflu for influenza A Continue with influenza precautions Sputum cultures ordered Follow-up on blood and sputum cultures DuoNeb breathing treatments ordered as needed Ambulate on the floor with assistance DC planning once patient is medically stable and breathing is back to baseline ? Patient seen and examined at bedside during my morning rounds ? Collaborated with patient's nurse at the bedside in detail and addressed all concerns ? Labs, electrolytes, radiology, investigations and test results reviewed ? Consult/Nursing/Ancilliary notes on the chart reviewed and appreciated ? Spoke with patient/family at the bedside and answered all the questions that they had Repeat labs in a.m. Electrolyte replacement as per protocol. Patient will be monitored very closely on the floor. Further recommendations as per the hospital course. Time Spent With Patient Time with patient: 15 - 25 minutes Subjective Date/time seen: 05/16/23 13:58 Interval history: Patient lying in bed during my morning rounds. Still complains of hacking cough and producing greenish sputum. Feels weak and tired. Review of Systems Review of Systems: 14 systems were reviewed with pertinent positives and negatives per HPI. Except as documented in the HPI/progress notes, all other systems were reviewed and are negative. All systems reviewed & are unremarkable except as noted in HPI and below Exam Narrative: PHYSICAL EXAMINATION: Vital signs: Please see the chart General physical exam: Patient lying in bed, pleasant and cooperative with exam, appears to be weak tired and fatigued Head/eyes: Atraumatic, EOMI, PERRLA ENT: Moist mucous membranes, nasal passages clear Neck: Supple, full range of motion, trachea midline CVS: S1 + S2, regular rate and rhythm, no murmurs Respiratory: Bilaterally fair air entry in both lung rankin, ++ B/L crackles, symmetric chest expansion, ++ scattered bilateral wheezing Abdomen: Soft, non-tender, bowel sounds +ve, no organomegaly Extremities: No clubbing, no cyanosis, no edema, no calf tenderness Musculoskeletal: Moves all, adequate range of motion, no muscle spasms Skin: Warm, dry, no jaundice, no cyanosis Neurological: Awake, alert, oriented x 3, cranial nerves II-XII intact, no focal neurological deficits Psychiatric: Normal mood, non suicidal Objective Data Vital Signs Vital Signs: Vital Signs - 24 hr 05/15/23 14:00 05/15/23 19:36 05/15/23 20:55 Temperature 35.6 C L 36.6 C Pulse Rate 109 H 102 H 109 H Respiratory Rate 16 20 18 Blood Pressure 132/76 124/80 Pulse Oximetry 96 98 Oxygen Delivery 05/15/23 20:00 05/16/23 02:05 05/15/23 19:50 Temperature Pulse Rate 111 H 106 H Respiratory Rate 20 20 Blood Pressure Pulse Oximetry Oxygen Delivery Room Air 05/16/23 02:11 05/16/23 06:00 05/16/23 08:19 Temper
[2023-05-16] MEDS: ACETAMINOPHEN 325 MG TABLET 650 MG PO (14:56)
[2023-05-16] MEDS: AZITHROMYCIN 500 MG/NS 250 ML 500 MG/250 ML BAG 250 MG IVPB (14:57)
[2023-05-16 16:21] LABS: Glucose Point of Care 263 mg/dl (65-105)
[2023-05-16] MEDS: INSULIN GLARGINE (*BKC) 100 UNITS/ML 14 UNITS SUB-Q (21:12)
[2023-05-16] MEDS: methylPREDNISolone SOD SUCC 125 MG VIAL 60 MG IV PUSH (21:12)
[2023-05-16 21:49] LABS: Glucose Point of Care 187 mg/dl (65-105)
[2023-05-17] VITALS (12 sets, daily range): BP systolic 114–153; BP diastolic 82–97; PULSE 85–110; RESP 18–22; TEMP 35.9–36.4; O2SAT 94–100
[2023-05-17] MEDS: IPRATROPIUM 0.5 MG/ALBUTEROL SULFATE 2.5 MG AMPUL.NEB 3 ML INHALATION ×4 (01:47→19:54)
[2023-05-17] MEDS: BENZONATATE 100 MG CAPSULE 200 MG PO ×3 (04:50→20:24)
[2023-05-17 06:42] LABS: Hematocrit 28.4 % (37.0-47.0); Hemoglobin 8.8 g/dL (12.0-15.0); Immature Granulocyte Absolute 0.11 K/mm3 (0.00-0.031); Immature Granulocyte Percent A 0.9 % (0-0.5); Lymphocytes Absolute Auto 0.47 K/mm3 (0.9-3.2); Mean Corpuscular Hemoglobin 24.4 pg (26-34); Mean Corpuscular Volume 78.9 fl (80-100); Mean Platelet Volume 9.9 fl (7.4-10.4); Monocytes Absolute Auto 0.2 K/mm3 (0.1-0.6); Monocytes Percent Auto 1.6 % (2.6-8.5); Neutrophils Absolute Auto 11.1 K/mm3 (1.3-6.7); Neutrophils Percent Auto 93.5 % (45.5-73.1); Platelet Count Result 447 k/mm3 (150-375); Red Cell Distribution Width 18.2 % (11.5-14.5); White Blood Count 11.8 K/mm3 (4.5-10.0)
[2023-05-17 06:59] LABS: Anion Gap 8 mmol/L (8-16); Blood Urea Nitrogen 23 mg/dL (7-17); Calcium 9.4 mg/dL (8.4-10.2); Carbon Dioxide 21 mmol/L (22-30); Chloride 108 mmol/L (98-107); Estimated CRCL calculation 47 ml/min; Estimated Glomerular Filt Rate > 60; Glucose 279 mg/dL (65-110); Potassium 3.9 mmol/L (3.4-5.0); Sodium 137 mmol/L (137-145)
[2023-05-17 07:37] LABS: Platelet Estimate Increased (Adequate)
[2023-05-17 07:37] LABS: Glucose Point of Care 209 mg/dl (65-105)
[2023-05-17 07:38] LABS: Anisocytosis 1+ (NORMAL); Hypochromasia 1+ (NORMAL); Microcytosis 1+ (NORMAL); Ovalocytes 1+ (NORMAL); Schistocytes None Seen (NORMAL)
[2023-05-17] MEDS: INSULIN ASPART (*BKC) 100 UNITS/ML SUB-Q ×2 (08:01→16:34)
[2023-05-17] MEDS: OSELTAMIVIR PHOSPHATE 75 MG CAPSULE PO ×2 (08:05→20:23)
[2023-05-17] MEDS: PANTOPRAZOLE 40 MG TABLET PO ×2 (08:06→20:24)
[2023-05-17] MEDS: methylPREDNISolone SOD SUCC 125 MG VIAL 60 MG IV PUSH ×2 (08:06→20:24)
[2023-05-17 11:35] LABS: Glucose Point of Care 186 mg/dl (65-105)
--- NOTE | 2023-05-17 14:26 | PM.IMPN ---
Progress Note: A&P Assessment and Plan (1) COPD exacerbation: Code(s): J44.1 - Chronic obstructive pulmonary disease with (acute) exacerbation Status: Acute (2) Asthma exacerbation in COPD: Code(s): J44.1 - Chronic obstructive pulmonary disease with (acute) exacerbation; J45.901 - Unspecified asthma with (acute) exacerbation Status: Acute (3) Diabetes mellitus: Code(s): E11.9 - Type 2 diabetes mellitus without complications Status: Acute (4) Influenza A: Code(s): J10.1 - Influenza due to other identified influenza virus with other respiratory manifestations Status: Acute Plan Patient advanced to full inpatient status Patient remains on room air oxygen and is not requiring any supplemental oxygen Continue solu-Medrol to 60 mg mg IV q12 hrs started on the floor to be tapered as per clinical response Patient has elevated WBCs secondary to steroids Patient likely having superimposed bacterial bronchitis with greenish sputum production as the chest x-ray ruled out pneumonia Started patient on IV azithromycin 500mg daily Patient has a lot of hacking cough with greenish brown sputum Patient started on anti cough meds Acapella and chest PT ordered Continue with oral Tamiflu for influenza A Continue with influenza precautions Sputum cultures ordered Follow-up on blood and sputum cultures DuoNeb breathing treatments ordered as needed Ambulate on the floor with assistance DC planning once patient is medically stable and breathing is back to baseline ? Patient seen and examined at bedside during my morning rounds ? Collaborated with patient's nurse at the bedside in detail and addressed all concerns ? Labs, electrolytes, radiology, investigations and test results reviewed ? Consult/Nursing/Ancilliary notes on the chart reviewed and appreciated ? Spoke with patient/family at the bedside and answered all the questions that they had Repeat labs in a.m. Electrolyte replacement as per protocol. Patient will be monitored very closely on the floor. Further recommendations as per the hospital course. Subjective Date/time seen: 05/17/23 14:26 Interval history: Patient still has wheezing and cough with greenish brown sputum. Still feels weak and tired. Review of Systems Review of Systems: 14 systems were reviewed with pertinent positives and negatives per HPI. Except as documented in the HPI/progress notes, all other systems were reviewed and are negative. All systems reviewed & are unremarkable except as noted in HPI and below Exam Narrative: PHYSICAL EXAMINATION: Vital signs: Please see the chart General physical exam: Patient lying in bed, pleasant and cooperative with exam, appears to be weak tired and fatigued Head/eyes: Atraumatic, EOMI, PERRLA ENT: Moist mucous membranes, nasal passages clear Neck: Supple, full range of motion, trachea midline CVS: S1 + S2, regular rate and rhythm, no murmurs Respiratory: Bilaterally fair air entry in both lung rankin, ++ B/L crackles, symmetric chest expansion, ++ scattered bilateral wheezing Abdomen: Soft, non-tender, bowel sounds +ve, no organomegaly Extremities: No clubbing, no cyanosis, no edema, no calf tenderness Musculoskeletal: Moves all, adequate range of motion, no muscle spasms Skin: Warm, dry, no jaundice, no cyanosis Neurological: Awake, alert, oriented x 3, cranial nerves II-XII intact, no focal neurological deficits Psychiatric: Normal mood, non suicidal Objective Data Vital Signs Vital Signs: Vital Signs - 24 hr 05/16/23 20:19 05/16/23 20:19 05/16/23 20:25 Temperature Pulse Rate 107 H 103 H Respiratory Rate 15 15 Blood Pressure Pulse Oximetry 100 Oxygen Delivery Room Air 05/16/23 20:00 05/16/23 22:00 05/17/23 01:47 Temperature 36.8 C Pulse Rate 97 108 H Respiratory Rate 18 Blood Pressure 141/88 H Pulse Oximetry 99 Oxygen Delivery Room Air 05/17/23 01:54 05/17/23 06:00 05/17/23 0
[2023-05-17] MEDS: AZITHROMYCIN 500 MG/NS 250 ML 500 MG/250 ML BAG 250 MG IVPB (14:41)
[2023-05-17] MEDS: SODIUM CHLORIDE 0.9% IV 100 ML (15:11)
[2023-05-17 16:29] LABS: Glucose Point of Care 251 mg/dl (65-105)
[2023-05-17] MEDS: guaiFENesin 600 MG/DEXTROMETHORPHAN 30 MG SR TAB 12 HR 1 TAB PO (20:23)
[2023-05-17] MEDS: INSULIN GLARGINE (*BKC) 100 UNITS/ML 14 UNITS SUB-Q (20:28)
[2023-05-17 20:36] LABS: Glucose Point of Care 197 mg/dl (65-105)
[2023-05-18] VITALS (13 sets, daily range): BP systolic 99–154; BP diastolic 62–96; PULSE 72–116; RESP 18–24; TEMP 35.8–36.7; O2SAT 95–99
[2023-05-18] MEDS: IPRATROPIUM 0.5 MG/ALBUTEROL SULFATE 2.5 MG AMPUL.NEB 3 ML INHALATION ×4 (02:40→19:37)
[2023-05-18] MEDS: BENZONATATE 100 MG CAPSULE 200 MG PO ×3 (05:47→20:06)
[2023-05-18 06:34] LABS: Basophils Percent Auto 0.1 % (0.2-1.2); Hematocrit 31.9 % (37.0-47.0); Hemoglobin 9.8 g/dL (12.0-15.0); Immature Granulocyte Absolute 0.12 K/mm3 (0.00-0.031); Lymphocytes Absolute Auto 0.49 K/mm3 (0.9-3.2); Lymphocytes Percent Auto 4.2 % (18.3-44.2); Mean Corpuscular HGB Conc 30.7 g/dl (32-36); Mean Corpuscular Hemoglobin 24.3 pg (26-34); Monocytes Absolute Auto 0.3 K/mm3 (0.1-0.6); Monocytes Percent Auto 2.6 % (2.6-8.5); Neutrophils Absolute Auto 10.8 K/mm3 (1.3-6.7); Neutrophils Percent Auto 92.1 % (45.5-73.1); Platelet Count Result 511 k/mm3 (150-375); Red Blood Count 4.04 M/mm3 (4.2-5.4); Red Cell Distribution Width 17.9 % (11.5-14.5); White Blood Count 11.7 K/mm3 (4.5-10.0)
[2023-05-18 06:45] LABS: Anion Gap 9 mmol/L (8-16); Blood Urea Nitrogen 28 mg/dL (7-17); Calcium 9.7 mg/dL (8.4-10.2); Carbon Dioxide 22 mmol/L (22-30); Chloride 104 mmol/L (98-107); Estimated CRCL calculation 47 ml/min; Estimated Glomerular Filt Rate > 60; Glucose 375 mg/dL (65-110); Potassium 3.7 mmol/L (3.4-5.0); Sodium 135 mmol/L (137-145)
[2023-05-18 07:50] LABS: Glucose Point of Care 355 mg/dl (65-105)
[2023-05-18] MEDS: INSULIN ASPART (*BKC) 100 UNITS/ML SUB-Q ×3 (08:20→20:09)
[2023-05-18] MEDS: OSELTAMIVIR PHOSPHATE 75 MG CAPSULE PO ×2 (09:02→20:06)
[2023-05-18] MEDS: guaiFENesin 600 MG/DEXTROMETHORPHAN 30 MG SR TAB 12 HR 1 TAB PO ×2 (09:02→20:06)
[2023-05-18] MEDS: methylPREDNISolone SOD SUCC 125 MG VIAL 60 MG IV PUSH ×2 (09:02→20:06)
[2023-05-18] MEDS: PANTOPRAZOLE 40 MG TABLET PO ×2 (09:02→20:06)
[2023-05-18] MEDS: ENOXAPARIN 40 MG/0.4 ML SYRINGE SUB-Q (09:03)
[2023-05-18 11:39] LABS: Glucose Point of Care 257 mg/dl (65-105)
[2023-05-18] MEDS: AZITHROMYCIN 500 MG/NS 250 ML 500 MG/250 ML BAG 250 MG IVPB (14:45)
[2023-05-18 16:29] LABS: Glucose Point of Care 164 mg/dl (65-105)
[2023-05-18] MEDS: VANCOMYCIN 2,000 MG/NS 500 ML 2,000 MG/500 ML BAG 250 MG IVPB (17:10)
--- NOTE | 2023-05-18 18:01 | PM.IMPN ---
Progress Note: A&P Assessment and Plan (1) COPD exacerbation: Code(s): J44.1 - Chronic obstructive pulmonary disease with (acute) exacerbation Status: Acute (2) Asthma exacerbation in COPD: Code(s): J44.1 - Chronic obstructive pulmonary disease with (acute) exacerbation; J45.901 - Unspecified asthma with (acute) exacerbation Status: Acute (3) Diabetes mellitus: Code(s): E11.9 - Type 2 diabetes mellitus without complications Status: Acute (4) Influenza A: Code(s): J10.1 - Influenza due to other identified influenza virus with other respiratory manifestations Status: Acute Plan Patient advanced to full inpatient status Patient remains on room air oxygen and is not requiring any supplemental oxygen Taper down solu-Medrol to 60 mg IV daily Patient has elevated WBCs secondary to steroids Patient likely having superimposed bacterial bronchitis with greenish sputum production as the chest x-ray ruled out pneumonia Continue with IV azithromycin 500mg daily Patient has a lot of hacking cough with greenish brown sputum Sputum cultures is Staphylococcus aureus with pending sensitivity Vancomycin IV added to cover for MRSA, to be dosed as per pharmacy MRSA nasal swab ordered Patient started on anti cough meds Acapella and chest PT ordered Continue with oral Tamiflu for influenza A Continue with influenza precautions Sputum cultures ordered Follow-up on blood and sputum cultures DuoNeb breathing treatments ordered as needed Ambulate on the floor with assistance DC planning once patient is medically stable and breathing is back to baseline ? Patient seen and examined at bedside during my morning rounds ? Collaborated with patient's nurse at the bedside in detail and addressed all concerns ? Labs, electrolytes, radiology, investigations and test results reviewed ? Consult/Nursing/Ancilliary notes on the chart reviewed and appreciated ? Spoke with patient/daughter and answered all the questions that they had Repeat labs in a.m. Electrolyte replacement as per protocol. Patient will be monitored very closely on the floor. Further recommendations as per the hospital course. Time Spent With Patient Time with patient: 25 - 35 minutes Subjective Date/time seen: 05/18/23 18:01 Interval history: Patient continues to have a lot of phlegm. Sputum cultures are growing Staphylococcus aureus. Vancomycin IV added. Spoke with the patient's daughter in detailon phone. Review of Systems Review of Systems: 14 systems were reviewed with pertinent positives and negatives per HPI. Except as documented in the HPI/progress notes, all other systems were reviewed and are negative. All systems reviewed & are unremarkable except as noted in HPI and below Exam Narrative: PHYSICAL EXAMINATION: Vital signs: Please see the chart General physical exam: Patient lying in bed, pleasant and cooperative with exam, appears to be weak tired and fatigued Head/eyes: Atraumatic, EOMI, PERRLA ENT: Moist mucous membranes, nasal passages clear Neck: Supple, full range of motion, trachea midline CVS: S1 + S2, regular rate and rhythm, no murmurs Respiratory: Bilaterally fair air entry in both lung rankin, ++ B/L crackles, symmetric chest expansion, ++ scattered bilateral wheezing Abdomen: Soft, non-tender, bowel sounds +ve, no organomegaly Extremities: No clubbing, no cyanosis, no edema, no calf tenderness Musculoskeletal: Moves all, adequate range of motion, no muscle spasms Skin: Warm, dry, no jaundice, no cyanosis Neurological: Awake, alert, oriented x 3, cranial nerves II-XII intact, no focal neurological deficits Psychiatric: Normal mood, non suicidal Objective Data Vital Signs Vital Signs: Vital Signs - 24 hr 05/17/23 19:54 05/17/23 19:58 05/17/23 20:02 Temperature Pulse Rate 96 96 91 Respiratory Rate 18 18 Blood Pressure Pulse Oximetry 97 Oxygen Delivery Room Air 05/17/23 20:00 05/17/23
[2023-05-18 19:48] LABS: MRSA (PCR) DETECTED (NOT DETECTE)
[2023-05-18] MEDS: INSULIN GLARGINE (*BKC) 100 UNITS/ML 14 UNITS SUB-Q (20:07)
[2023-05-18 20:58] LABS: Glucose Point of Care 242 mg/dl (65-105)
[2023-05-19] VITALS (9 sets, daily range): BP systolic 103–143; BP diastolic 71–98; PULSE 62–109; RESP 18–22; TEMP 35.9–36.6; O2SAT 96–100
[2023-05-19] MEDS: IPRATROPIUM 0.5 MG/ALBUTEROL SULFATE 2.5 MG AMPUL.NEB 3 ML INHALATION ×4 (02:27→20:32)
[2023-05-19] MEDS: BENZONATATE 100 MG CAPSULE 200 MG PO ×3 (06:28→22:00)
[2023-05-19 06:34] LABS: Estimated CRCL calculation 38 ml/min; Estimated Glomerular Filt Rate 54
[2023-05-19 07:45] LABS: Glucose Point of Care 272 mg/dl (65-105)
[2023-05-19] MEDS: guaiFENesin 600 MG/DEXTROMETHORPHAN 30 MG SR TAB 12 HR 1 TAB PO ×2 (09:02→20:21)
[2023-05-19] MEDS: ACETAMINOPHEN 325 MG TABLET 650 MG PO ×2 (09:02→20:21)
[2023-05-19] MEDS: PANTOPRAZOLE 40 MG TABLET PO ×2 (09:02→20:22)
[2023-05-19 09:03] LABS: Glucose Point of Care 264 mg/dl (65-105)
[2023-05-19] MEDS: ENOXAPARIN 40 MG/0.4 ML SYRINGE SUB-Q (09:04)
[2023-05-19] MEDS: INSULIN ASPART (*BKC) 100 UNITS/ML SUB-Q ×2 (09:05→11:45)
[2023-05-19] MEDS: methylPREDNISolone SOD SUCC 125 MG VIAL 60 MG IV PUSH ×2 (09:08→20:22)
--- NOTE | 2023-05-19 11:30 | PC.NURSE ---
Spoke with respiratory per Dr. Major to ensure that patient is getting Q6HR chest physiotherapy.
[2023-05-19 11:33] LABS: Glucose Point of Care 319 mg/dl (65-105)
[2023-05-19] MEDS: AZITHROMYCIN 500 MG/NS 250 ML 500 MG/250 ML BAG 250 MG IVPB (13:35)
[2023-05-19 16:54] LABS: Glucose Point of Care 482 mg/dl (65-105)
[2023-05-19 16:54] LABS: Glucose Point of Care > 500 mg/dl (65-105)
--- NOTE | 2023-05-19 16:59 | PM.IMPN ---
Progress Note: A&P Assessment and Plan (1) COPD exacerbation: Code(s): J44.1 - Chronic obstructive pulmonary disease with (acute) exacerbation Status: Acute (2) Asthma exacerbation in COPD: Code(s): J44.1 - Chronic obstructive pulmonary disease with (acute) exacerbation; J45.901 - Unspecified asthma with (acute) exacerbation Status: Acute (3) Diabetes mellitus: Code(s): E11.9 - Type 2 diabetes mellitus without complications Status: Acute (4) Influenza A: Code(s): J10.1 - Influenza due to other identified influenza virus with other respiratory manifestations Status: Acute Plan Patient advanced to full inpatient status Patient remains on room air oxygen and is not requiring any supplemental oxygen Does insulin from 14-20 units q.h.s. Continue with Accu-Cheks with Insulin coverage as per protocol ... Advanced to high-dose regimen Taper down solu-Medrol to 40 mg IV daily Patient has elevated WBCs secondary to steroids Patient likely having superimposed bacterial bronchitis with greenish sputum production as the chest x-ray ruled out pneumonia Continue with IV azithromycin 500mg daily Patient has a lot of hacking cough with greenish brown sputum Sputum cultures growing MRSA with good sensitivity to vancomycin Continue with IV vancomycin to be dosed as per pharmacy MRSA nasal swab ordered Patient started on anti cough meds Continue with acapella and chest PT Continue with oral Tamiflu for influenza A Continue with influenza precautions Sputum cultures ordered Follow-up on blood and sputum cultures DuoNeb breathing treatments ordered as needed Ambulate on the floor with assistance DC planning once patient is medically stable and breathing is back to baseline ? Patient seen and examined at bedside during my morning rounds ? Collaborated with patient's nurse at the bedside in detail and addressed all concerns ? Labs, electrolytes, radiology, investigations and test results reviewed ? Consult/Nursing/Ancilliary notes on the chart reviewed and appreciated ? Spoke with patient/daughter and answered all the questions that they had Repeat labs in a.m. Electrolyte replacement as per protocol. Patient will be monitored very closely on the floor. Further recommendations as per the hospital course. Time Spent With Patient Time with patient: 15 - 25 minutes Subjective Date/time seen: 05/19/23 16:59 Interval history: Patient feeling a little better today after starting vancomycin. Still has wheezing with phlegm. Blood sugar levels are due to Solu-Medrol and her daughter bringing her milk from outside. Review of Systems Review of Systems: 14 systems were reviewed with pertinent positives and negatives per HPI. Except as documented in the HPI/progress notes, all other systems were reviewed and are negative. All systems reviewed & are unremarkable except as noted in HPI and below Exam Narrative: PHYSICAL EXAMINATION: Vital signs: Please see the chart General physical exam: Patient lying in bed, pleasant and cooperative with exam, appears to be weak tired and fatigued Head/eyes: Atraumatic, EOMI, PERRLA ENT: Moist mucous membranes, nasal passages clear Neck: Supple, full range of motion, trachea midline CVS: S1 + S2, regular rate and rhythm, no murmurs Respiratory: Bilaterally fair air entry in both lung rankin, ++ B/L crackles, symmetric chest expansion, ++ scattered bilateral wheezing Abdomen: Soft, non-tender, bowel sounds +ve, no organomegaly Extremities: No clubbing, no cyanosis, no edema, no calf tenderness Musculoskeletal: Moves all, adequate range of motion, no muscle spasms Skin: Warm, dry, no jaundice, no cyanosis Neurological: Awake, alert, oriented x 3, cranial nerves II-XII intact, no focal neurological deficits Psychiatric: Normal mood, non suicidal Objective Data Vital Signs Vital Signs: Vital Signs - 24 hr 05/18/23 18:06 05/18/23 19:37 05/18/23 19:38 Tempera
[2023-05-19] MEDS: INSULIN ASPART (*BKC) 100 UNITS/ML 12 UNITS SUB-Q (17:05)
[2023-05-19] MEDS: VANCOMYCIN 1,250 MG/NS 250 ML 1,250 MG/250 ML BAG 166.67 MG IVPB (17:05)
[2023-05-19 18:10] LABS: Glucose Point of Care 448 mg/dl (65-105)
[2023-05-19] MEDS: INSULIN ASPART (*BKC) 100 UNITS/ML 10 UNITS SUB-Q (18:31)
[2023-05-19 18:32] LABS: Glucose Point of Care 401 mg/dl (65-105)
[2023-05-19 19:22] LABS: Glucose Point of Care 386 mg/dl (65-105)
[2023-05-19] MEDS: INSULIN GLARGINE (*BKC) 100 UNITS/ML 20 UNITS SUB-Q (20:25)
[2023-05-19 21:35] LABS: Glucose Point of Care 195 mg/dl (65-105)
[2023-05-20] VITALS (9 sets, daily range): BP systolic 119–158; BP diastolic 67–94; PULSE 82–110; RESP 18–20; TEMP 36–36.7; O2SAT 96–100
[2023-05-20] MEDS: IPRATROPIUM 0.5 MG/ALBUTEROL SULFATE 2.5 MG AMPUL.NEB 3 ML INHALATION ×3 (02:46→13:55)
[2023-05-20] MEDS: BENZONATATE 100 MG CAPSULE 200 MG PO ×2 (06:18→13:21)
[2023-05-20 06:41] LABS: Estimated CRCL calculation 42 ml/min; Estimated Glomerular Filt Rate > 60
[2023-05-20 07:40] LABS: Glucose Point of Care 296 mg/dl (65-105)
[2023-05-20] MEDS: INSULIN ASPART (*BKC) 100 UNITS/ML SUB-Q ×3 (08:42→16:59)
[2023-05-20] MEDS: PANTOPRAZOLE 40 MG TABLET PO (08:45)
[2023-05-20] MEDS: guaiFENesin 600 MG/DEXTROMETHORPHAN 30 MG SR TAB 12 HR 1 TAB PO (08:45)
[2023-05-20] MEDS: ENOXAPARIN 40 MG/0.4 ML SYRINGE SUB-Q (08:45)
[2023-05-20] MEDS: methylPREDNISolone SOD SUCC 125 MG VIAL 60 MG IV PUSH (08:45)
[2023-05-20 09:59] LABS: Basophils Percent Auto 0.1 % (0.2-1.2); Hemoglobin 9.5 g/dL (12.0-15.0); Immature Granulocyte Absolute 0.14 K/mm3 (0.00-0.031); Immature Granulocyte Percent A 1.1 % (0-0.5); Lymphocytes Absolute Auto 0.54 K/mm3 (0.9-3.2); Lymphocytes Percent Auto 4.3 % (18.3-44.2); Mean Corpuscular HGB Conc 30.6 g/dl (32-36); Mean Corpuscular Hemoglobin 24.4 pg (26-34); Mean Corpuscular Volume 79.7 fl (80-100); Mean Platelet Volume 9.8 fl (7.4-10.4); Monocytes Absolute Auto 0.3 K/mm3 (0.1-0.6); Neutrophils Absolute Auto 11.6 K/mm3 (1.3-6.7); Neutrophils Percent Auto 92.5 % (45.5-73.1); Platelet Count Result 514 k/mm3 (150-375); Red Blood Count 3.89 M/mm3 (4.2-5.4); Red Cell Distribution Width 18.4 % (11.5-14.5); White Blood Count 12.6 K/mm3 (4.5-10.0)
[2023-05-20 10:01] LABS: Iron 55 ug/dL (37-170)
[2023-05-20 10:02] LABS: Anion Gap 10 mmol/L (8-16); Blood Urea Nitrogen 36 mg/dL (7-17); Calcium 9.1 mg/dL (8.4-10.2); Carbon Dioxide 20 mmol/L (22-30); Chloride 106 mmol/L (98-107); Estimated CRCL calculation 42 ml/min; Estimated Glomerular Filt Rate > 60; Glucose 264 mg/dL (65-110); Potassium 3.6 mmol/L (3.4-5.0); Sodium 136 mmol/L (137-145)
[2023-05-20 10:10] LABS: Percent Iron Saturation 18 % (20-50)
[2023-05-20 10:29] LABS: Hypochromasia 2+ (NORMAL); Ovalocytes 2+ (NORMAL); Platelet Estimate Increased (Adequate)
[2023-05-20 10:30] LABS: Helmet Cells 1+ (NORMAL); Schistocytes 1+ (NORMAL)
--- NOTE | 2023-05-20 11:30 | PM.DS ---
DS: Admitting Diagnosis Discharge Date 05/20/2023: Admitting Diagnosis Acute exacerbation of COPD Influenza A DS: Discharge Diagnosis Discharge Diagnosis (1) Elevated brain natriuretic peptide (BNP) level: Code(s): R79.89 - Other specified abnormal findings of blood chemistry Status: Acute (2) Influenza A: Code(s): J10.1 - Influenza due to other identified influenza virus with other respiratory manifestations Status: Acute (3) COPD exacerbation: Code(s): J44.1 - Chronic obstructive pulmonary disease with (acute) exacerbation Status: Acute (4) Asthma exacerbation in COPD: Code(s): J44.1 - Chronic obstructive pulmonary disease with (acute) exacerbation; J45.901 - Unspecified asthma with (acute) exacerbation Status: Acute (5) Diabetes mellitus: Code(s): E11.9 - Type 2 diabetes mellitus without complications Status: Acute (6) MRSA infection (methicillin-resistant Staphylococcus aureus): Code(s): A49.02 - Methicillin resistant Staphylococcus aureus infection, unspecified site Status: Acute DS: Summary Hospital Course Reason for hospitalization: Patient admitted with shortness of breath Hospital Course: H&P: HPI History of Present Illness Date/Time: 05/14/23? 00:28 Chief Complaint: Shortness of breath.? This is a 77-year-old female patient with a past medical history of COPD type 2 diabetes mellitus current right disease who came to the emergency room complaining of shortness of breath.? Patient said that she was diagnosed with RSV pneumonia at [facility] seen at [place] about a month ago and was given a course of antibiotics.? Patient said that she is still having a cough and having shortness of breath.? Patient is awake alert not in any acute distress.? Denies any fever chills dizziness lightheadedness no blurry vision no chest pains complains of shortness of breath and dry cough.? Denies any nausea no vomiting no diarrhea no dysuria no muscle and joint pains.? Vital signs in the emergency room was stable.? CBC showed WBC count of 4.8 hemoglobin 8.7 hematocrit 28.4 platelets count 293.? D-dimer was 1.24.? CMP showed sodium 139 potassium 4.3 chloride of 108 carbon dioxide 20 BUN 24 creatinine 0.90.? Glucose 122.? Magnesium 0.9.? ProBNP 4700 in 20.? Influenza A positive.? COVID RSV negative.? CTA chest showed no evidence of acute pulmonary embolus.? No acute process detected in the chest.? 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 40 mm indeterminate density left upper pole renal lesion.? Chest x-ray showed no acute cardiopulmonary process. HOSPITAL COURSE ... Date of Admission - 05/19/2023: Patient advanced to full inpatient status Patient remains on room air oxygen and is not requiring any supplemental oxygen Does insulin from 14-20 units q.h.s. Continue with Accu-Cheks with Insulin coverage as per protocol ...? Advanced to high-dose regimen Taper down solu-Medrol to 40 mg IV daily Patient has elevated WBCs secondary to steroids Patient likely having superimposed bacterial bronchitis with greenish sputum production as the chest x-ray ruled out pneumonia Continue with IV azithromycin 500mg daily Patient has a lot of hacking cough with greenish brown sputum Sputum cultures growing MRSA with good sensitivity to vancomycin Continue with IV vancomycin to be dosed as per pharmacy MRSA nasal swab ordered Patient started on anti cough meds Continue with acapella and chest PT Continue with oral Tamiflu for influenza A Continue with influenza precautions Sputum cultures ordered Follow-up on blood and sputum cultures DuoNeb breathing treatments ordered as needed Ambulate on the floor with assistance DC planning once patient is medically stable and breathing is back to baseline 05/20/2023: Patient seen and examined at bedside today. Her shortness of breath is improving. Her phlegm and hacking cough is improving as well. She has received 3
[2023-05-20 11:46] LABS: Glucose Point of Care 252 mg/dl (65-105)
[2023-05-20] MEDS: AZITHROMYCIN 500 MG/NS 250 ML 500 MG/250 ML BAG 250 MG IVPB (12:47)
[2023-05-20] MEDS: SULFAMETHOXAZOLE/TRIMETHOPRIM 800/160 MG DS TABLET 1 TAB PO (12:47)
[2023-05-20] MEDS: SODIUM CHLORIDE 0.9% IV 250 ML 100 ML (13:21)
[2023-05-20 13:24] LABS: SARS-CoV-2 RNA PCR Negative (Negative)
[2023-05-20 16:48] LABS: Glucose Point of Care 355 mg/dl (65-105)
== END 2023-05-20 18:30 | DRG 202 ==
LOC: ANHED 20:25 → ANH3MEDSUR 23:14
PROVIDERS: Admitting Provider Internal Medicine Infectious Disease; Emergency Provider Student in an Organized Health Care Education/Training Program; Visit Provider Family Medicine
DX: J20.8 Acute bronchitis due to other specified organisms (principal); J44.0 Chronic obstructive pulmonary disease with (acute) lower respiratory infection; J44.1 Chronic obstructive pulmonary disease with (acute) exacerbation; J45.901 Unspecified asthma with (acute) exacerbation; J10.1 Influenza due to other identified influenza virus with other respiratory manifestations; A49.02 Methicillin resistant Staphylococcus aureus infection, unspecified site; I50.9 Heart failure, unspecified; E11.9 Type 2 diabetes mellitus without complications; Z79.4 Long term (current) use of insulin; Z87.891 Personal history of nicotine dependence
CPT/HCPCS: 36415; 71045; 71046; 71275; 80048; 80053; 82565; 82728; 82948; 83540; 83550; 83735; 83880; 84100; 84484; 85025; 85380; 87070; 87077; 87181; 87205; 87635; 87637; 87641; 93005; 94640; 94667; 94668; 96365; 96366; 99285; A9270; J0456; J1650; J1815; J2920; J2930; J3370; J3475; J7030; J7050; J7512; Q9967

== ENCOUNTER 2023-06-13 12:02 | Emergency (ER) | payer MEDICARE, SELFPAY ==
--- NOTE | ~2023-06-13 | XR_ITS ---
EXAMINATION: XR chest 2V DATE: 06/13/2023 12:33 INDICATION: Cough. Shortness of breath. TECHNIQUE: Frontal and lateral views of the chest were obtained. COMPARISON: Chest 2 views 05/15/2023, chest CT 05/13/2023 FINDINGS: There are airspace opacities in right lower lobe. No pleural effusion or pneumothorax. The heart size is normal. There is a moderate-sized hiatal hernia. There are changes of vertebroplasty in lumbar spine. IMPRESSION: 1. Right lower lobe airspace opacities, consistent with pneumonia. 2. Moderate-sized hiatal hernia. Reviewed, dictated and finalized at location A.
[2023-06-13 12:13] VITALS: BP 80/49; PULSE 109; RESP 26; TEMP 36.6; O2SAT 98
[2023-06-13 12:21] VITALS: BP 80/49; PULSE 109; RESP 26; TEMP 36.6; O2SAT 98
--- NOTE | 2023-06-13 12:29 | ED.URI ---
HPI - URI/Sore Throat General Chief Complaint: Upper Respiratory Infection Stated Complaint: Head Congestion, Short of Breath Time Seen by Provider: 06/13/23 12:20 Source: patient, family (daughter), RN notes reviewed and old records reviewed Mode of arrival: ambulatory Limitations: no limitations History of Present Illness HPI Narrative: Patient presents with daughter from her assisted living facility complaining of a 3 day history of productive cough, headache, wheezing, nasal congestion and sinus pressure, fatigue, shortness of breath. She also reports a subjective fever since last night. She has been taking Tylenol and using her rescue inhaler. Patient was inpatient at [facility] for 1 week at the end of April/beginning of May for CHF/asthma exacerbation with MRSA bronchitis and was discharged home with a 2 week prescription for Bactrim and course of prednisone. Related Data Home Medications Medication Instructions Recorded Confirmed allopurinol 300 mg tablet 300 mg PO DAILY 10/07/20 06/13/23 isosorbide mononitrate 20 mg tablet 20 mg PO DAILY 10/07/20 06/13/23 melatonin 10 mg tablet 10 mg PO HS PRN Insomnia 10/07/20 06/13/23 pantoprazole 40 mg tablet,delayed 40 mg PO BID 10/07/20 06/13/23 release albuterol sulfate 2.5 mg/3 mL 2.5 mg inhalation DAILY 05/14/23 06/13/23 (0.083 %) solution for nebulization amitriptyline 50 mg tablet 50 mg PO HS 05/14/23 06/13/23 benzonatate 100 mg capsule 100 mg PO PRN PRN Cough 05/14/23 06/13/23 budesonide-formoterol HFA 160 2 puff inhalation BID 05/14/23 06/13/23 mcg-4.5 mcg/actuation aerosol inhaler (Breyna) denosumab 60 mg/mL subcutaneous 60 mg subcut Q6M 05/14/23 06/13/23 syringe (Prolia) docusate sodium 100 mg capsule 100 mg PO PRN PRN Constipation 05/14/23 06/13/23 glipizide 2.5 mg tablet, extended 2.5 mg PO BID PRN hydration 05/14/23 06/13/23 release 24 hr hydroxyzine HCl 25 mg tablet 25 mg PO PRN PRN Itching 05/14/23 06/13/23 insulin aspart U-100 100 unit/mL See Rx Instructions .Route .COMPLEX 05/14/23 06/13/23 (3 mL) subcutaneous pen (Novolog FlexPen U-100 Insulin aspart) naloxone 4 mg/actuation nasal spray 4 mg intranasal PRN PRN Opioid 05/14/23 06/13/23 Overdose oxycodone-acetaminophen 5 mg-325 5 tablet PO PRN PRN Pain 05/14/23 06/13/23 mg tablet pen needle, diabetic, safety 30 05/14/23 06/13/23 gauge x 1/3 (Novofine Autocover) simvastatin 40 mg tablet 40 mg PO HS 05/14/23 06/13/23 triamcinolone acetonide 0.5 % See Rx Instructions .Route .COMPLEX 05/14/23 06/13/23 topical cream denosumab 60 mg/mL subcutaneous See Rx Instructions .Route .COMPLEX 06/13/23 06/13/23 syringe (Prolia) escitalopram oxalate 10 mg tablet 10 mg PO DAILY 06/13/23 06/13/23 Allergies Allergy/AdvReac Type Severity Reaction Status Date / Time ciprofloxacin AdvReac Mild Rash Verified 06/13/23 12:21 cyclobenzaprine AdvReac Mild Rash Verified 06/13/23 12:21 hydromorphone AdvReac Mild Rash Verified 06/13/23 12:21 latex AdvReac Mild Rash Verified 06/13/23 12:21 Penicillins AdvReac Mild Rash Verified 06/13/23 12:21 tetracycline AdvReac Mild Rash Verified 06/13/23 12:21 Review of Systems Review of Systems: CONSTITUTIONAL: Denies body aches. + sweats, subjective fever, fatigue EYES: Denies visual changes, redness, or discharge. ENT: Denies rhinorrhea, sore throat, or otalgia.+ nasal congestion CARDIOVASCULAR: Denies chest pain, palpitations, or edema. RESPIRATORY: + cough, wheezing, shortness of breath GASTROINTESTINAL: Denies abdominal pain, nausea, vomiting, or diarrhea. GENITOURINARY: Denies dysuria or hematuria. SKIN: Denies rash, itching, or wounds. MUSCULOSKELETAL: Denies back pain, joint pain, or myalgia. NEUROLOGIC: Denies numbness, tingling, or weakness.+ headache PSYCH: Denies depression or anxiety. PMFSH Past Medical History Medical History Congestive heart failure Diabetes mellitus with ins
== END 2023-06-13 12:52 | disposition short-term general hospital (02) ==
PROVIDERS: Emergency Provider Nurse Practitioner; PCP Physician Assistant Medical
DX: J18.9 Pneumonia, unspecified organism (principal); R06.02 Shortness of breath; Z87.891 Personal history of nicotine dependence; I50.9 Heart failure, unspecified; E11.9 Type 2 diabetes mellitus without complications; Z79.4 Long term (current) use of insulin
CPT/HCPCS: 71046; 99213; G0463

== ENCOUNTER 2023-06-13 13:23 | Inpatient (IN) | payer MEDICARE, MEDICAID, SELFPAY ==
[2023-06-13] VITALS (20 sets, daily range): BP systolic 75–143; BP diastolic 51–88; PULSE 81–123; RESP 16–24; TEMP 36.3–36.6; O2SAT 95–100; BMI 26.8; BMI 27.5
--- NOTE | ~2023-06-13 | XR_ITS ---
XR chest 2V DATE: 06/17/2023 07:57 INDICATION: Pneumonia. Shortness of breath on exertion TECHNIQUE: PA and lateral views COMPARISON: 06/13/2023 2 view chest FINDINGS: Cardiomegaly. Aortic calcification. There are bilateral lower lung infiltrates and/atelectasis, relatively stable on the right The left since 06/13/2023. Consider aspiration pneumonitis and/or bilateral pneumonia. Small bilateral pleural effusions. Diffuse osteopenia. There is vertebroplasty of a lumbar vertebra. IMPRESSION: Bilateral lower lung infiltrates and/atelectasis, relatively stable on the right The left since 06/13/2023 Reviewed, dictated and finalized at location A.
--- NOTE | 2023-06-13 13:49 | ECG_ITS ---
Measurements Intervals [place] Rate: 98 P: 29 SC: 128 QRS: -36 QRSD: 87 T: 23 QT: 351 QTc: 450 Interpretive Statements SINUS RHYTHM LEFT AXIS DEVIATION LEFT VENTRICULAR HYPERTROPHY AND ST-T CHANGE BORDERLINE R WAVE PROGRESSION, ANTERIOR LEADS MINIMAL Q WAVES- HIGH LATERAL LEADS BASELINE ARTIFACT- I, II, III, AVR, AVL, AVF, V2 BORDERLINE ECG COMPARED TO ECG 05/13/2023 18:28:32 SINUS RHYTHM NOW PRESENT LEFT VENTRICULAR HYPERTROPHY NOW PRESENT Electronically Signed On 06-13-2023 14:14:37 CDT by Guille Villagran D.O.
[2023-06-13 14:04] LABS: Basophils Absolute Auto 0.1 K/mm3 (0.0-0.1); Basophils Percent Auto 0.8 % (0.2-1.2); Eosinophils Absolute Auto 0.4 K/mm3 (0-0.3); Eosinophils Percent Auto 4.9 % (0-4.4); Hematocrit 28.4 % (37.0-47.0); Hemoglobin 8.5 g/dL (12.0-15.0); Immature Granulocyte Absolute 0.05 K/mm3 (0.00-0.031); Immature Granulocyte Percent A 0.7 % (0-0.5); Lymphocytes Absolute Auto 2.02 K/mm3 (0.9-3.2); Lymphocytes Percent Auto 28.4 % (18.3-44.2); Mean Corpuscular HGB Conc 29.9 g/dl (32-36); Mean Corpuscular Hemoglobin 24.4 pg (26-34); Mean Corpuscular Volume 81.6 fl (80-100); Mean Platelet Volume 10.1 fl (7.4-10.4); Monocytes Absolute Auto 0.8 K/mm3 (0.1-0.6); Monocytes Percent Auto 11.7 % (2.6-8.5); Neutrophils Absolute Auto 3.8 K/mm3 (1.3-6.7); Neutrophils Percent Auto 53.5 % (45.5-73.1); Platelet Count Result 362 k/mm3 (150-375); Red Blood Count 3.48 M/mm3 (4.2-5.4); White Blood Count 7.1 K/mm3 (4.5-10.0)
--- NOTE | 2023-06-13 14:27 | ED.URI ---
HPI - URI/Sore Throat General Chief Complaint: Upper Respiratory Infection <Carole Horvath PA-C - Last Filed: 06/13/23 18:26> Stated Complaint: ?pneumonia <SHILPA Alvarado Last Filed: 06/13/23 18:26> Time Seen by Provider: 06/13/23 14:00 <SHILPA Alvarado Last Filed: 06/13/23 18:26> Source: patient <SHILPA Alvarado Last Filed: 06/13/23 18:26> Mode of arrival: ambulatory <SHILPA Alvarado Last Filed: 06/13/23 18:26> Limitations: no limitations <SHILPA Alvarado Last Filed: 06/13/23 18:26> History of Present Illness HPI Narrative: This is a 77 year old female that presents to the ER for cold symptoms present over the last 3 days. Reports subjective fever, cough, congestion, shortness of breath and wheezing. Patient has been hospitalized several times this year for pneumonia. Denies chest pain or lower extremity edema. <SHILPA Alvarado Last Filed: 06/13/23 18:26> Related Data Home Medications: Home Medications Medication Instructions Recorded Confirmed allopurinol 300 mg tablet 300 mg PO DAILY 10/07/20 06/13/23 isosorbide mononitrate 20 mg tablet 20 mg PO DAILY 10/07/20 06/13/23 melatonin 10 mg tablet 10 mg PO HS PRN Insomnia 10/07/20 06/13/23 pantoprazole 40 mg tablet,delayed 40 mg PO BID 10/07/20 06/13/23 release albuterol sulfate 2.5 mg/3 mL 2.5 mg inhalation DAILY 05/14/23 06/13/23 (0.083 %) solution for nebulization amitriptyline 50 mg tablet 50 mg PO HS 05/14/23 06/13/23 benzonatate 100 mg capsule 100 mg PO PRN PRN Cough 05/14/23 06/13/23 budesonide-formoterol HFA 160 2 puff inhalation BID 05/14/23 06/13/23 mcg-4.5 mcg/actuation aerosol inhaler (Breyna) denosumab 60 mg/mL subcutaneous 60 mg subcut Q6M 05/14/23 06/13/23 syringe (Prolia) docusate sodium 100 mg capsule 100 mg PO PRN PRN Constipation 05/14/23 06/13/23 glipizide 2.5 mg tablet, extended 2.5 mg PO BID PRN hydration 05/14/23 06/13/23 release 24 hr hydroxyzine HCl 25 mg tablet 25 mg PO PRN PRN Itching 05/14/23 06/13/23 insulin aspart U-100 100 unit/mL See Rx Instructions .Route .COMPLEX 05/14/23 06/13/23 (3 mL) subcutaneous pen (Novolog FlexPen U-100 Insulin aspart) naloxone 4 mg/actuation nasal spray 4 mg intranasal PRN PRN Opioid 05/14/23 06/13/23 Overdose oxycodone-acetaminophen 5 mg-325 5 tablet PO PRN PRN Pain 05/14/23 06/13/23 mg tablet pen needle, diabetic, safety 30 05/14/23 06/13/23 gauge x 1/3 (Novofine Autocover) simvastatin 40 mg tablet 40 mg PO HS 05/14/23 06/13/23 triamcinolone acetonide 0.5 % See Rx Instructions .Route .COMPLEX 05/14/23 06/13/23 topical cream denosumab 60 mg/mL subcutaneous See Rx Instructions .Route .COMPLEX 06/13/23 06/13/23 syringe (Prolia) escitalopram oxalate 10 mg tablet 10 mg PO DAILY 06/13/23 06/13/23 <Carole Horvath PA-C - Last Filed: 06/13/23 18:26> Allergies/Adverse Reactions: Allergies Allergy/AdvReac Type Severity Reaction Status Date / Time ciprofloxacin AdvReac Mild Rash Verified 06/13/23 12:21 cyclobenzaprine AdvReac Mild Rash Verified 06/13/23 12:21 hydromorphone AdvReac Mild Rash Verified 06/13/23 12:21 latex AdvReac Mild Rash Verified 06/13/23 12:21 Penicillins AdvReac Mild Rash Verified 06/13/23 12:21 tetracycline AdvReac Mild Rash Verified 06/13/23 12:21 <Carole Horvath PA-C - Last Filed: 06/13/23 18:26> Review of Systems Review of Systems: CONSTITUTIONAL: Reports fever ENT: Reports congestion CARDIOVASCULAR: Denies chest pain, or edema. RESPIRATORY: Reports cough and dyspnea. <Carole Horvath PA-C - Last Filed: 06/13/23 18:26> All systems reviewed & are unremarkable except as noted in HPI and below <Carole Horvath PA-C - Last Filed: 06/13/23 18:26> [facility] Past Medical History Medical History: Medical History (Updated 06/13/23 @ 18:25 by Carole Horvath PA-C) Congestive heart failure Diabetes mellitus with insulin therapy History of COPD
[2023-06-13 14:30] LABS: Alanine Aminotransferase 13 U/L (6-35); Albumin Level 3.8 g/dL (3.5-5.1); Alkaline Phosphatase 100 U/L (38-126); Anion Gap 7 mmol/L (4-12); Aspartate Amino Transferase 20 U/L (14-36); Bilirubin,Total 0.3 mg/dL (0.2-1.3); Blood Urea Nitrogen 34 mg/dL (7-17); Calcium 9.6 mg/dL (8.4-10.2); Carbon Dioxide 23 mmol/L (22-30); Chloride 106 mmol/L (98-107); Estimated CRCL calculation 25 ml/min; Estimated Glomerular Filt Rate 31; Glucose 82 mg/dL (65-110); Potassium 4.7 mmol/L (3.4-5.0); Sodium 136 mmol/L (137-145)
[2023-06-13 14:39] LABS: Platelet Estimate Adequate (Adequate); Schistocytes None Seen
[2023-06-13 14:40] LABS: Anisocytosis 2+; Hypochromasia 1+
[2023-06-13 14:43] LABS: Influenza A QL RT-PCR Negative (Negative); Influenza B QL RT-PCR Negative (Negative); RSV RNA, RT-PCR Negative (Negative); SARS-CoV-2 RNA PCR Negative (Negative)
[2023-06-13] MEDS: SODIUM CHLORIDE 0.9% IV 1,000 ML 999 ML IV CONT (14:47)
[2023-06-13] MEDS: methylPREDNISolone SOD SUCC 125 MG VIAL IV PUSH (14:47)
[2023-06-13] MEDS: IPRATROPIUM 0.5 MG/ALBUTEROL SULFATE 2.5 MG AMPUL.NEB 3 ML INHALATION ×3 (14:48→19:30)
[2023-06-13] MEDS: cefTRIAXone 2 GM/NS 100 ML 2 GM/100 ML BAG IVPB (15:12)
[2023-06-13 15:17] LABS: CRP 1.4 mg/dL (<1.0)
[2023-06-13 15:29] LABS: Lactic Acid Reflex 0.8 mmol/L (0.7-2.0)
[2023-06-13] MEDS: AZITHROMYCIN 500 MG/NS 250 ML 500 MG/250 ML BAG 250 MG IVPB (15:44)
[2023-06-13] MEDS: VANCOMYCIN 2,000 MG/NS 500 ML 2,000 MG/500 ML BAG 500 MG IVPB (17:11)
--- NOTE | 2023-06-13 17:23 | PC.NURSE ---
Pt c/o feeling SOB and RR 26, placed on 2 L NC O2 due to WOB, RR now 16
--- NOTE | 2023-06-13 17:30 | PC.NURSE ---
dietary meal ordered for pt at this time
--- NOTE | 2023-06-13 17:30 | PC.NURSE ---
food try ordered at this time
[2023-06-13 17:52] LABS: MRSA (PCR) DETECTED (NOT DETECTE)
--- NOTE | 2023-06-13 20:38 | ECG_ITS ---
Measurements Intervals [place] Rate: 126 P: 40 [place]: 172 QRS: -25 QRSD: 102 T: 74 QT: 323 QTc: 468 Interpretive Statements SINUS TACHYCARDIA BORDERLINE ST-T WAVE ABNORMALITY- ANTEROLAT/HIGH LAT LEADS BASELINE WANDER- II, V2 ABNORMAL ECG COMPARED TO ECG 06/13/2023 13:54:21 SINUS TACHYCARDIA NOW PRESENT Electronically Signed On 06-14-2023 12:49:27 CDT by Guille Villagran D.O.
--- NOTE | 2023-06-13 21:05 | ADMGEN ---
This patient, Mayte Sanchez, was admitted to IMU Room 214-01. Patient/family oriented to hospital policies and general routines including ID bracelet, bed and alarms, visiting hours, pain management, procedures, bathroom and other care routines, personal items, smoking policy, room service/diet, and visiting hours. Information on how to activate the Rapid Response Team has been discussed. Patient/Family are encouraged to report perceived risks to care and to ask questions if they do not understand what they are told or what they should do.
[2023-06-13 21:39] LABS: Glucose Point of Care 418 mg/dl (65-105)
[2023-06-13] MEDS: INSULIN ASPART (*BKC) 100 UNITS/ML 8 UNITS SUB-Q (22:26)
[2023-06-13] MEDS: INSULIN GLARGINE (*BKC) 100 UNITS/ML 20 UNITS SUB-Q (22:28)
[2023-06-13] MEDS: SODIUM CHLORIDE 0.9% IV 1,000 ML 100 ML IV CONT (22:30)
--- NOTE | 2023-06-13 23:06 | PM.IMHP ---
H&P: HPI History of Present Illness Date/Time: 06/13/23 23:06 Chief Complaint: Cough and shortness of breath Narrative: 69-year-old female with a past medical history of COPD, insulin-dependent type 2 diabetes mellitus, chronic pain and gout who presented to the ER from urgent care due to shortness of breath and low blood pressures. The patient reports that she had went to her driller and reamer appointment and was told to go for further evaluation. She chose to go to urgent care and was subsequently directed to ER when her blood pressures were found to be in the 80s. She reports that she has been having nasal congestion, cough occasionally productive of yellow sputum, sinus pressure and wheezing for 4 days. She denies any fevers or chills. On arrival to the ER the patient's blood pressures were 80/49. She received 1 dose of IV Solu-Medrol 125 mg and 1 L of IV fluids with normalization of her blood pressure. She reports that is not unusual for to get dehydrated when she does not feel well. She had had decreased urine output but is improved since admission. She denies any dysuria or changes in bowel habits. Her last bowel movement was just prior to my evaluation and was normally formed. She reports that she has a mild headache that is usually improved with Tylenol. She does have a prescription for Percocet due to her chronic low back pain but she reports that she rarely takes this. She reports chronic pruritus of her arms and legs. She has multiple areas of abrasions. Review of Systems Review of Systems: 12 systems were reviewed with pertinent positives and negatives per HPI. Except as documented in the HPI, all other systems were reviewed and are negative. [facility] Past Medical History Medical History (Updated 06/13/23 @ 23:38 by Mady Grigsby DO) Congestive heart failure COPD (chronic obstructive pulmonary disease) Diabetes mellitus with insulin therapy GERD (gastroesophageal reflux disease) Gout Hyperlipidemia Surgical History Surgical History (Updated 06/13/23 @ 23:18 by Mady Grigsby DO) History of appendectomy History of coronary artery stent placement History of total hysterectomy with bilateral salpingo-oophorectomy (BSO) Status post cataract extraction of both eyes with insertion of intraocular lens Family History Family History (Updated 06/13/23 @ 23:23 by Mady Grigsby DO) Father Cerebrovascular accident Mother Myocardial infarction Mother Parkinson disease Sibling Cerebrovascular accident Sibling Cerebrovascular accident Sibling Cerebrovascular accident Sibling Cerebrovascular accident Sibling Cerebrovascular accident Sibling Cerebrovascular accident Sibling Cerebrovascular accident Sibling Myocardial infarction Sibling Myocardial infarction Sibling Myocardial infarction Daughter Narcolepsy Diabetes mellitus Social History Social History (Updated 06/13/23 @ 23:23 by Mady Grigsby DO) Social History: The patient lives in [facility]. She moved there in April 2023. She has never been but has 2 sons and a daughter. 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 She used to smoke 2 packs of cigarettes per day but reports that she quit smoking 50 years ago. She denies any history of alcohol use or drug use. Code status: DNR/DNI per patient request Healthcare power of tax associate attorney: Lakshmi Shah (daughter) Smoking packs per day: 2 Smoking cigarettes per day: 40.0 Smoking status: Former smoker Tobacco type: cigarettes Alcohol intake: former Substance use: never Do You Feel Safe in your Home?: Yes Lack of Transportation: No Lack of Food: Never True Current Housing: I Have Housing Concerned About Future Housing: No Difficulty Paying Gas/Electric Bills: No Difficulty Paying for Meds: No Currently Unemployed: No Education: High School Diploma/GED Difficulty w/ Childcare or Family Care: No
[2023-06-13] MEDS: AMITRIPTYLINE HCL 25 MG TABLET 50 MG PO (23:28)
[2023-06-13] MEDS: MELATONIN 5 MG TABLET 10 MG PO (23:29)
[2023-06-13] MEDS: ACETAMINOPHEN 325 MG TABLET 650 MG PO (23:29)
[2023-06-13] MEDS: SALINE 0.65% NAS SOLN 44 ML BTL 1 SPRAY NASAL (23:30)
[2023-06-14] VITALS (25 sets, daily range): BP systolic 112–155; BP diastolic 65–87; PULSE 100–122; RESP 17–26; TEMP 35.8–36.6; O2SAT 96–100
[2023-06-14 01:19] LABS: Glucose Point of Care 381 mg/dl (65-105)
[2023-06-14] MEDS: INSULIN ASPART (*BKC) 100 UNITS/ML 8 UNITS SUB-Q (02:02)
--- NOTE | 2023-06-14 04:44 | PCRCNOTE ---
0200 Tx missed due to care cordination.
[2023-06-14 04:58] LABS: Hematocrit 24.6 % (37.0-47.0); Hemoglobin 7.3 g/dL (12.0-15.0); Mean Corpuscular HGB Conc 29.7 g/dl (32-36); Mean Corpuscular Hemoglobin 24.5 pg (26-34); Mean Corpuscular Volume 82.6 fl (80-100); Mean Platelet Volume 9.7 fl (7.4-10.4); Platelet Count Result 286 k/mm3 (150-375); Red Blood Count 2.98 M/mm3 (4.2-5.4); Red Cell Distribution Width 17.5 % (11.5-14.5); White Blood Count 5.2 K/mm3 (4.5-10.0)
[2023-06-14 05:11] LABS: Anion Gap 9 mmol/L (4-12); Blood Urea Nitrogen 35 mg/dL (7-17); Calcium 8.8 mg/dL (8.4-10.2); Carbon Dioxide 18 mmol/L (22-30); Chloride 108 mmol/L (98-107); Estimated CRCL calculation 39 ml/min; Estimated Glomerular Filt Rate 48; Glucose 254 mg/dL (65-110); Potassium 4.6 mmol/L (3.4-5.0); Sodium 135 mmol/L (137-145)
[2023-06-14] MEDS: IPRATROPIUM 0.5 MG/ALBUTEROL SULFATE 2.5 MG AMPUL.NEB 3 ML INHALATION ×3 (07:58→21:07)
[2023-06-14] MEDS: FLUTICASONE/SALMETEROL 115-21 MCG INHALER 1 PUFF 2 PUFF INHALATION ×2 (07:58→21:07)
[2023-06-14 08:38] LABS: Glucose Point of Care 190 mg/dl (65-105)
[2023-06-14 10:05] LABS: Iron 19 ug/dL (37-170)
[2023-06-14 10:06] LABS: Magnesium 1.4 mg/dL (1.6-2.3); Phosphorus 3.6 mg/dL (2.5-4.5)
[2023-06-14 10:14] LABS: Percent Iron Saturation 5 % (20-50)
[2023-06-14] MEDS: PANTOPRAZOLE 40 MG TABLET PO ×2 (10:32→20:38)
[2023-06-14] MEDS: predniSONE 20 MG TABLET 60 MG PO (10:33)
[2023-06-14] MEDS: ESCITALOPRAM OXALATE 10 MG TABLET PO (10:33)
[2023-06-14] MEDS: allopurinoL 300 MG TABLET PO (10:33)
[2023-06-14] MEDS: SODIUM BICARBONATE TAB 650 MG TABLET PO ×2 (10:34→16:28)
[2023-06-14] MEDS: NYSTATIN 100,000 UNITS/ML SUSP 5 ML ORAL.SUSP PO ×4 (10:34→20:39)
[2023-06-14] MEDS: SALINE 0.65% NAS SOLN 44 ML BTL 1 SPRAY NASAL ×2 (10:35→20:39)
[2023-06-14 11:13] LABS: Folic Acid 5.9 ng/mL (2.76->20)
[2023-06-14] MEDS: BENZONATATE 100 MG CAPSULE PO ×2 (11:15→16:28)
[2023-06-14] MEDS: ACETAMINOPHEN 325 MG TABLET 650 MG PO (11:17)
[2023-06-14] MEDS: SODIUM CHLORIDE 0.9% IV 1,000 ML 100 ML IV CONT (11:20)
[2023-06-14 11:33] LABS: Glucose Point of Care 227 mg/dl (65-105)
[2023-06-14] MEDS: INSULIN ASPART (*BKC) 100 UNITS/ML SUB-Q (12:14)
--- NOTE | 2023-06-14 14:55 | PC.NURSE ---
On 06/14/23, the student, [Shira Perez ], provided care and completed [facility] documentation on this patient. I have reviewed the student's documentation and agree with the findings.
[2023-06-14] MEDS: cefTRIAXone 2 GM/NS 100 ML 2 GM/100 ML BAG IVPB (16:23)
[2023-06-14] MEDS: AZITHROMYCIN 500 MG/NS 250 ML 500 MG/250 ML BAG 250 MG IVPB (16:28)
[2023-06-14 17:09] LABS: Glucose Point of Care 198 mg/dl (65-105)
[2023-06-14 18:13] LABS: Vancomycin Random 13.1 ug/mL (10-20)
--- NOTE | 2023-06-14 18:33 | PM.IMPN ---
Progress Note: A&P Assessment and Plan (1) Pneumonia: Qualifiers: Laterality: right Lung location: lower lobe of lung Pneumonia type: due to unspecified organism Qualified Code(s): J18.9 - Pneumonia, unspecified organism Code(s): J18.9 - Pneumonia, unspecified organism Status: Acute (2) COPD exacerbation: Code(s): J44.1 - Chronic obstructive pulmonary disease with (acute) exacerbation Status: Acute (3) MRSA infection (methicillin-resistant Staphylococcus aureus): Code(s): A49.02 - Methicillin resistant Staphylococcus aureus infection, unspecified site Status: Acute (4) Acute kidney injury: Code(s): N17.9 - Acute kidney failure, unspecified Status: Acute (5) Type 2 diabetes mellitus with hyperglycemia, with long-term current use of insulin: Code(s): E11.65 - Type 2 diabetes mellitus with hyperglycemia; Z79.4 - [facility] (current) use of insulin Status: Acute (6) Eczema: Qualifiers: Eczema type: unspecified Qualified Code(s): L30.9 - Dermatitis, unspecified Code(s): L30.9 - Dermatitis, unspecified Status: Acute (7) Abnormal CT scan, chest: Code(s): R93.89 - Abnormal findings on diagnostic imaging of other specified body structures Status: Acute Plan Admit patient to medical unit under full inpatient status Patient has X-ray and clinical findings consistent with right lower lobe pneumonia Patient started on IV antibiotics in the form of Rocephin and Zithromax which we'll continue on the floor Given her history of MRSA, which was confirmed on MRSA screen in ER, vancomycin ordered as well with pharmacy to dose Follow-up on blood cultures sent from ER Sputum cultures ordered as well Oxygen via nasal cannula to keep O2 sats around 94% Patient received IV Solu-Medrol 125 mg IV x1 dose in the ER Patient started on prednisone 60 mg PO q8hrs on the floor to be titrated as per clinical response Continue diabetic meds Accu-Cheks qAC and qHS ordered with low-dose insulin coverage as per protocol Continue with the DuoNeb breathing treatments on the floor as needed Encourage ambulation on the floor DC patient home on oral antibiotics when patient is clinically stable and breathing is back to baseline 05/14/2023 ... 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 [facility] vascular surgery paged.? Our channel partners pushed CT images to [place]. He also Spoke with vascular surgeon at [facility].? Per vascular surgeon aneurysm is small.? Patient needs to be followed at vascular surgery at [place] in 3 months. ? Patient seen and examined at bedside during my morning rounds ? Collaborated with patient's nurse at the bedside in detail and addressed all concerns ? Labs, electrolytes, radiology, investigations and test results reviewed ? Consult/Nursing/Ancilliary notes on the chart reviewed and appreciated ? Spoke with patient/family at the bedside and answered all the questions that they had Repeat labs in a.m. Electrolyte replacement as per protocol. Patient will be monitored very closely on the floor. Further recommendations as per the hospital course. Time Spent With Patient Time with patient: 15 - 25 minutes Subjective Date/time seen: 06/14/23 18:33 Interval history: Patient seen and evaluated bedside. She is known to me from her previous admission. Still complaining of some shortness of breath with weakness and tiredness Review of Systems Review of Systems: 12 systems were reviewed with pertinent positives and negatives per HPI. Except as documented in the HPI, all other systems were reviewed and are negative. All systems reviewed & are unremarkable except as noted in HPI and below Exam Narrative: PHYSICAL EXAMINATION: Vital signs: Please see the chart General physical exam: Patient lying in bed, pleasant cooperative to exam, appears to be tired, weak and fatigued
[2023-06-14] MEDS: VANCOMYCIN 1,250 MG/NS 250 ML 1,250 MG/250 ML BAG 166.67 MG IVPB (19:46)
[2023-06-14] MEDS: CYANOCOBALAMIN INJ 1,000 MCG/ML VIAL 1000 MCG IM (19:54)
[2023-06-14 20:09] LABS: Glucose Point of Care 405 mg/dl (65-105)
[2023-06-14] MEDS: MAGNESIUM SULF 4 GM/WATER100ML 4 GM/100 ML BAG IVPB (20:15)
[2023-06-14] MEDS: MELATONIN 5 MG TABLET 10 MG PO (20:37)
[2023-06-14] MEDS: SIMVASTATIN 20 MG TABLET 40 MG PO (20:37)
[2023-06-14] MEDS: guaiFENesin/DEXTROMETHORPHAN 10 ML UDC PO (20:37)
[2023-06-14] MEDS: INSULIN GLARGINE (*BKC) 100 UNITS/ML 30 UNITS SUB-Q (20:38)
[2023-06-14] MEDS: INSULIN ASPART (*BKC) 100 UNITS/ML 12 UNITS SUB-Q (20:38)
[2023-06-14] MEDS: AMITRIPTYLINE HCL 25 MG TABLET 50 MG PO (20:38)
[2023-06-14] MEDS: IRON SUCROSE COMPLEX 300 MG in SODIUM CHLORIDE 0.9% IV 250 ML 177 MG IVPB (23:05)
[2023-06-15] VITALS (20 sets, daily range): BP systolic 123–159; BP diastolic 80–104; PULSE 100–129; RESP 16–22; TEMP 36.2–37.3; O2SAT 87–97
[2023-06-15 00:15] LABS: Glucose Point of Care 255 mg/dl (65-105)
[2023-06-15] MEDS: SODIUM CHLORIDE 0.9% IV 1,000 ML 75 ML IV CONT (01:40)
[2023-06-15] MEDS: IPRATROPIUM 0.5 MG/ALBUTEROL SULFATE 2.5 MG AMPUL.NEB 3 ML INHALATION ×4 (03:07→20:50)
[2023-06-15 04:51] LABS: Basophils Percent Auto 0.2 % (0.2-1.2); Hematocrit 25.8 % (37.0-47.0); Hemoglobin 7.6 g/dL (12.0-15.0); Immature Granulocyte Absolute 0.07 K/mm3 (0.00-0.031); Immature Granulocyte Percent A 0.7 % (0-0.5); Lymphocytes Absolute Auto 0.74 K/mm3 (0.9-3.2); Lymphocytes Percent Auto 7.1 % (18.3-44.2); Mean Corpuscular HGB Conc 29.5 g/dl (32-36); Mean Corpuscular Hemoglobin 24.4 pg (26-34); Mean Corpuscular Volume 82.7 fl (80-100); Mean Platelet Volume 10.1 fl (7.4-10.4); Monocytes Absolute Auto 0.8 K/mm3 (0.1-0.6); Monocytes Percent Auto 7.3 % (2.6-8.5); Neutrophils Absolute Auto 8.8 K/mm3 (1.3-6.7); Neutrophils Percent Auto 84.7 % (45.5-73.1); Platelet Count Result 339 k/mm3 (150-375); Red Blood Count 3.12 M/mm3 (4.2-5.4); Red Cell Distribution Width 17.9 % (11.5-14.5); White Blood Count 10.4 K/mm3 (4.5-10.0)
[2023-06-15 05:02] LABS: Anion Gap 10 mmol/L (4-12); Blood Urea Nitrogen 36 mg/dL (7-17); Calcium 8.8 mg/dL (8.4-10.2); Carbon Dioxide 17 mmol/L (22-30); Chloride 110 mmol/L (98-107); Estimated CRCL calculation 43 ml/min; Estimated Glomerular Filt Rate 54; Glucose 179 mg/dL (65-110); Magnesium 2.8 mg/dL (1.6-2.3); Sodium 137 mmol/L (137-145)
[2023-06-15 05:15] LABS: Anisocytosis 1+; Hypochromasia 1+; Platelet Estimate Adequate (Adequate)
[2023-06-15 05:16] LABS: Ovalocytes 1+; Schistocytes None Seen
[2023-06-15 07:41] LABS: Glucose Point of Care 157 mg/dl (65-105)
[2023-06-15] MEDS: FLUTICASONE/SALMETEROL 115-21 MCG INHALER 1 PUFF 2 PUFF INHALATION ×2 (08:44→20:50)
[2023-06-15] MEDS: FOLIC ACID 1 MG TABLET PO (08:53)
[2023-06-15] MEDS: BENZONATATE 100 MG CAPSULE PO ×3 (08:53→17:07)
[2023-06-15] MEDS: PANTOPRAZOLE 40 MG TABLET PO ×2 (08:53→21:32)
[2023-06-15] MEDS: SODIUM BICARBONATE TAB 650 MG TABLET PO (08:53)
[2023-06-15] MEDS: allopurinoL 300 MG TABLET PO (08:53)
[2023-06-15] MEDS: ESCITALOPRAM OXALATE 10 MG TABLET PO (08:53)
[2023-06-15] MEDS: predniSONE 20 MG TABLET 60 MG PO (08:53)
[2023-06-15] MEDS: NYSTATIN 100,000 UNITS/ML SUSP 5 ML ORAL.SUSP PO ×4 (08:58→21:38)
[2023-06-15] MEDS: LIDOCAINE HCL 1% LOCAL INJ 2 ML AMPUL 5 ML INFILTRATE (09:42)
[2023-06-15] MEDS: IRON SUCROSE COMPLEX 300 MG in SODIUM CHLORIDE 0.9% IV 250 ML 177 MG IVPB (10:53)
[2023-06-15 11:18] LABS: Glucose Point of Care 138 mg/dl (65-105)
[2023-06-15] MEDS: SODIUM BICARBONATE 8.4% 150 MEQ in WATER, STERILE FOR INJECTION 950 ML 50 MEQ IV CONT (12:25)
[2023-06-15] MEDS: cefTRIAXone 2 GM/NS 100 ML 2 GM/100 ML BAG IVPB (14:34)
[2023-06-15] MEDS: ACETAMINOPHEN 325 MG TABLET 650 MG PO ×2 (15:13→23:06)
[2023-06-15] MEDS: AZITHROMYCIN 500 MG/NS 250 ML 500 MG/250 ML BAG 250 MG IVPB (15:14)
[2023-06-15] MEDS: INSULIN ASPART (*BKC) 100 UNITS/ML SUB-Q ×2 (17:07→21:30)
[2023-06-15 17:12] LABS: Glucose Point of Care 340 mg/dl (65-105)
[2023-06-15 18:17] LABS: Vancomycin Random 14.7 ug/mL (10-20)
--- NOTE | 2023-06-15 18:51 | PM.IMPN ---
Progress Note: A&P Assessment and Plan (1) Pneumonia: Qualifiers: Laterality: right Lung location: lower lobe of lung Pneumonia type: due to unspecified organism Qualified Code(s): J18.9 - Pneumonia, unspecified organism Code(s): J18.9 - Pneumonia, unspecified organism Status: Acute (2) COPD exacerbation: Code(s): J44.1 - Chronic obstructive pulmonary disease with (acute) exacerbation Status: Acute (3) MRSA infection (methicillin-resistant Staphylococcus aureus): Code(s): A49.02 - Methicillin resistant Staphylococcus aureus infection, unspecified site Status: Acute (4) Acute kidney injury: Code(s): N17.9 - Acute kidney failure, unspecified Status: Acute (5) Type 2 diabetes mellitus with hyperglycemia, with long-term current use of insulin: Code(s): E11.65 - Type 2 diabetes mellitus with hyperglycemia; Z79.4 - [facility]PC (current) use of insulin Status: Acute (6) Eczema: Qualifiers: Eczema type: unspecified Qualified Code(s): L30.9 - Dermatitis, unspecified Code(s): L30.9 - Dermatitis, unspecified Status: Acute (7) Abnormal CT scan, chest: Code(s): R93.89 - Abnormal findings on diagnostic imaging of other specified body structures Status: Acute Plan Admit patient to medical unit under full inpatient status Patient has X-ray and clinical findings consistent with right lower lobe pneumonia Patient started on IV antibiotics in the form of Rocephin and Zithromax which we'll continue on the floor Given her history of MRSA, which was confirmed on MRSA screen in ER, vancomycin ordered as well with pharmacy to dose Follow-up on blood cultures sent from ER Sputum cultures ordered as well Oxygen via nasal cannula to keep O2 sats around 94% Patient received IV Solu-Medrol 125 mg IV x1 dose in the ER Patient started on prednisone 60 mg PO daily on the floor to be titrated as per clinical response Her WBC count jumped overnight to 10.4 due to steroids Patient has mild metabolic acidosis with bicarbonate level of 17 Patient started on bicarbonate drip 150 mEq per hour in sterile water at 50 cc/hour for 20 hours Monitor labs and electrolytes and continue bicarbonate drip again tomorrow as needed Maybe seem level corrected with IV placement yesterday Patient has borderline vitamin B12 and folic acid levels Folic acid 1 g daily ordered Vitamin B12 1000 mcg IM x 2 dose given 06/14/2023 Start patient on vitamin B12 500 mcg daily from 06/16/2023: Patient has labs consistent with iron deficiency anemia Patient started on IV Venofer 300 mg daily for 3 days Patient would need to be discharged on ferrous sulfate 324 mg orally bid daily Continue diabetic meds Accu-Cheks qAC and qHS ordered with low-dose insulin coverage as per protocol Continue with the DuoNeb breathing treatments on the floor as needed Encourage ambulation on the floor DC patient home on oral antibiotics when patient is clinically stable and breathing is back to baseline 05/14/2023 ... 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 [facility] vascular surgery paged.? Our cement mason [facility] pushed CT images to [place]. He also Spoke with vascular surgeon at [facility].? Per vascular surgeon aneurysm is small.? Patient needs to be followed at vascular surgery at [place] in 3 months. ? Patient seen and examined at bedside during my morning rounds ? Collaborated with patient's nurse at the bedside in detail and addressed all concerns ? Labs, electrolytes, radiology, investigations and test results reviewed ? Consult/Nursing/Ancilliary notes on the chart reviewed and appreciated ? Spoke with patient/family at the bedside and answered all the questions that they had Repeat labs in a.m. Electrolyte replacement as per protocol. Patient will be monitored very closely on the floor. Further recommendations as per the hospital course. I am signing o
[2023-06-15 20:50] LABS: Glucose Point of Care 233 mg/dl (65-105)
[2023-06-15] MEDS: FERROUS SULFATE 325 MG TABLET DR PO (21:28)
[2023-06-15] MEDS: VANCOMYCIN 1,250 MG/NS 250 ML 1,250 MG/250 ML BAG 166.67 MG IVPB (21:28)
[2023-06-15] MEDS: SIMVASTATIN 20 MG TABLET 40 MG PO (21:32)
[2023-06-15] MEDS: SALINE LOCK FLUSH 10 ML IV PUSH (21:32)
[2023-06-15] MEDS: MELATONIN 5 MG TABLET 10 MG PO (21:33)
[2023-06-15] MEDS: INSULIN GLARGINE (*BKC) 100 UNITS/ML 30 UNITS SUB-Q (21:35)
[2023-06-15] MEDS: AMITRIPTYLINE HCL 25 MG TABLET 50 MG PO (21:36)
[2023-06-16] VITALS (23 sets, daily range): BP systolic 98–150; BP diastolic 48–88; PULSE 66–130; RESP 16–20; TEMP 36.2–36.8; O2SAT 92–97
[2023-06-16] MEDS: IPRATROPIUM 0.5 MG/ALBUTEROL SULFATE 2.5 MG AMPUL.NEB 3 ML INHALATION ×4 (02:30→20:07)
[2023-06-16] MEDS: oxyCODONE/ACETAMINOPHEN (*CRX) 5-325 MG TABLET 1 TABLET PO ×3 (04:02→20:20)
[2023-06-16] MEDS: SALINE LOCK FLUSH 20 ML IV PUSH (04:03)
[2023-06-16] MEDS: SALINE LOCK FLUSH 10 ML IV PUSH ×3 (04:03→20:19)
[2023-06-16 04:27] LABS: Basophils Percent Auto 0.2 % (0.2-1.2); Hematocrit 25.1 % (37.0-47.0); Hemoglobin 7.4 g/dL (12.0-15.0); Immature Granulocyte Absolute 0.21 K/mm3 (0.00-0.031); Immature Granulocyte Percent A 1.6 % (0-0.5); Lymphocytes Absolute Auto 0.99 K/mm3 (0.9-3.2); Lymphocytes Percent Auto 7.7 % (18.3-44.2); Mean Corpuscular HGB Conc 29.5 g/dl (32-36); Mean Corpuscular Hemoglobin 24.1 pg (26-34); Mean Corpuscular Volume 81.8 fl (80-100); Mean Platelet Volume 10.3 fl (7.4-10.4); Monocytes Percent Auto 7.7 % (2.6-8.5); Neutrophils Absolute Auto 10.6 K/mm3 (1.3-6.7); Neutrophils Percent Auto 82.8 % (45.5-73.1); Nucleated Red Blood Cells Perc 0.2 % (0.0-0.2); Platelet Count Result 335 k/mm3 (150-375); Red Blood Count 3.07 M/mm3 (4.2-5.4); Red Cell Distribution Width 17.9 % (11.5-14.5); White Blood Count 12.8 K/mm3 (4.5-10.0)
[2023-06-16 04:47] LABS: Anion Gap 6 mmol/L (4-12); Blood Urea Nitrogen 25 mg/dL (7-17); Calcium 8.9 mg/dL (8.4-10.2); Carbon Dioxide 24 mmol/L (22-30); Chloride 108 mmol/L (98-107); Estimated CRCL calculation 53 ml/min; Estimated Glomerular Filt Rate > 60; Glucose 190 mg/dL (65-110); Potassium 3.7 mmol/L (3.4-5.0); Sodium 138 mmol/L (137-145)
[2023-06-16 04:52] LABS: Anisocytosis 1+; Hypochromasia 1+; Microcytosis 1+ (NORMAL); Ovalocytes 1+; Platelet Estimate Adequate (Adequate); Schistocytes None Seen
[2023-06-16 07:53] LABS: Glucose Point of Care 115 mg/dl (65-105)
[2023-06-16] MEDS: FLUTICASONE/SALMETEROL 115-21 MCG INHALER 1 PUFF 2 PUFF INHALATION ×2 (08:03→20:07)
[2023-06-16] MEDS: IRON SUCROSE COMPLEX 300 MG in SODIUM CHLORIDE 0.9% IV 250 ML 177 MG IVPB (08:19)
[2023-06-16] MEDS: allopurinoL 300 MG TABLET PO (08:20)
[2023-06-16] MEDS: SALINE 0.65% NAS SOLN 44 ML BTL 1 SPRAY NASAL (08:20)
[2023-06-16] MEDS: predniSONE 20 MG TABLET 60 MG PO (08:20)
[2023-06-16] MEDS: NYSTATIN 100,000 UNITS/ML SUSP 5 ML ORAL.SUSP PO ×4 (08:20→20:19)
[2023-06-16] MEDS: BENZONATATE 100 MG CAPSULE PO ×3 (08:20→16:13)
[2023-06-16] MEDS: FOLIC ACID 1 MG TABLET PO (08:21)
[2023-06-16] MEDS: CYANOCOBALAMIN 500 MCG TABLET PO (08:21)
[2023-06-16] MEDS: FERROUS SULFATE 325 MG TABLET DR PO ×2 (08:21→16:13)
[2023-06-16] MEDS: PANTOPRAZOLE 40 MG TABLET PO ×2 (08:21→20:19)
[2023-06-16] MEDS: ESCITALOPRAM OXALATE 10 MG TABLET PO (08:21)
[2023-06-16] MEDS: guaiFENesin/DEXTROMETHORPHAN 10 ML UDC PO (08:35)
[2023-06-16 12:16] LABS: Glucose Point of Care 58 mg/dl (65-105)
--- NOTE | 2023-06-16 12:24 | PM.IMPN ---
Progress Note: A&P Assessment and Plan (1) Pneumonia: Qualifiers: Laterality: right Lung location: lower lobe of lung Pneumonia type: due to unspecified organism Qualified Code(s): J18.9 - Pneumonia, unspecified organism Code(s): J18.9 - Pneumonia, unspecified organism Status: Acute Assessment and Plan: Improving Blood culture negative Will continue current treatment, repeat xray in am. (2) COPD exacerbation: Code(s): J44.1 - Chronic obstructive pulmonary disease with (acute) exacerbation Status: Acute Assessment and Plan: Improving Will continue current treatment Oxygen requirment has decreased (3) MRSA infection (methicillin-resistant Staphylococcus aureus): Code(s): A49.02 - Methicillin resistant Staphylococcus aureus infection, unspecified site Status: Acute Assessment and Plan: Stable on current medications, we will continue current treatment (4) Acute kidney injury: Code(s): N17.9 - Acute kidney failure, unspecified Status: Acute Assessment and Plan: Gentle hydration and monitor. (5) Type 2 diabetes mellitus with hyperglycemia, with long-term current use of insulin: Code(s): E11.65 - Type 2 diabetes mellitus with hyperglycemia; Z79.4 - residential (current) use of insulin Status: Acute Assessment and Plan: Stable on current medications, we will continue current treatment (6) Eczema: Qualifiers: Eczema type: unspecified Qualified Code(s): L30.9 - Dermatitis, unspecified Code(s): L30.9 - Dermatitis, unspecified Status: Acute Assessment and Plan: Stable on current medications, we will continue current treatment Plan Possible dc in am Improving Increase activity Code status DNR DVT prophylaxis SCD boots Subjective Date/time seen: 06/16/23 12:24 Interval history: Patient was seen during the morning rounds today. Mild sob, no chest pain. No abdominal pain, no nausea. Mood stable. Review of Systems Review of Systems: 12 systems were reviewed with pertinent positives and negatives per HPI. Except as documented in the HPI, all other systems were reviewed and are negative. All systems reviewed & are unremarkable except as noted in HPI and below Exam Narrative: PHYSICAL EXAMINATION: Vital signs: Please see the chart General physical exam: Patient lying in bed, pleasant cooperative to exam, appears to be tired, weak and fatigued with shortness of breath Head/eyes: Atraumatic, EOMI, PERRLA ENT: Moist mucous membranes, nasal passages clear Neck: Supple, full range of motion, trachea midline CVS: S1 + S2, regular rate and rhythm, no murmurs Respiratory: Air entry is better, few rales at bases. Abdomen: Soft, non-tender, bowel sounds +ve, no organomegaly Extremities: No clubbing, no cyanosis, no edema, no calf tenderness Musculoskeletal: Moves all, decreased range of motion, no muscle spasms Skin: Warm, dry, no jaundice, no cyanosis Neurological: Awake, alert, oriented x 3, cranial nerves II-XII intact, no focal neurological deficits Psychiatric: Normal mood, non suicidal Const: Other: No acute distress, well-developed well-nourished, appears stated age HENMT: Other: Mucous membranes are dry, no oral pharyngeal erythema, head is normocephalic atraumatic Eyes: Other: Pupils are equal and reactive with evidence of prior cataract replacement surgery bilateral, no scleral icterus Neck: Other: No JVD, no lymphadenopathy Resp: Other: Diffuse wheezing bilaterally but right greater than left, mild conversational tachypnea, decreased breath sounds at the bases posteriorly Cardio: Other: Tachycardic, occasional irregular beat, 2+ bilateral radial pedal pulses GI: Other: Soft, nontender, nondistended, positive bowel sounds Skin: Other: Generalized pallor, non jaundice, multiple excoriated areas on arms legs shins
[2023-06-16 13:06] LABS: Glucose Point of Care 97 mg/dl (65-105)
[2023-06-16] MEDS: cefTRIAXone 2 GM/NS 100 ML 2 GM/100 ML BAG IVPB (15:40)
[2023-06-16 15:59] LABS: Glucose Point of Care 182 mg/dl (65-105)
[2023-06-16] MEDS: AZITHROMYCIN 500 MG/NS 250 ML 500 MG/250 ML BAG 250 MG IVPB (16:13)
[2023-06-16] MEDS: VANCOMYCIN 1,250 MG/NS 250 ML 1,250 MG/250 ML BAG 166.67 MG IVPB (18:23)
[2023-06-16 20:13] LABS: Glucose Point of Care 291 mg/dl (65-105)
[2023-06-16] MEDS: AMITRIPTYLINE HCL 25 MG TABLET 50 MG PO (20:18)
[2023-06-16] MEDS: MELATONIN 5 MG TABLET 10 MG PO (20:19)
[2023-06-16] MEDS: SIMVASTATIN 20 MG TABLET 40 MG PO (20:19)
[2023-06-16] MEDS: INSULIN ASPART (*BKC) 100 UNITS/ML SUB-Q (20:22)
[2023-06-16] MEDS: INSULIN GLARGINE (*BKC) 100 UNITS/ML 30 UNITS SUB-Q (20:22)
[2023-06-17] VITALS (20 sets, daily range): BP systolic 117–140; BP diastolic 62–88; PULSE 96–124; RESP 16–24; TEMP 36.2–36.7; O2SAT 90–100
[2023-06-17] MEDS: IPRATROPIUM 0.5 MG/ALBUTEROL SULFATE 2.5 MG AMPUL.NEB 3 ML INHALATION ×4 (02:42→20:57)
[2023-06-17] MEDS: SALINE LOCK FLUSH 20 ML IV PUSH (04:53)
[2023-06-17] MEDS: SALINE LOCK FLUSH 10 ML IV PUSH ×3 (04:53→20:05)
[2023-06-17 05:14] LABS: Basophils Percent Auto 0.2 % (0.2-1.2); Hematocrit 24.6 % (37.0-47.0); Hemoglobin 7.3 g/dL (12.0-15.0); Immature Granulocyte Percent A 2.3 % (0-0.5); Lymphocytes Absolute Auto 0.98 K/mm3 (0.9-3.2); Lymphocytes Percent Auto 11.1 % (18.3-44.2); Mean Corpuscular HGB Conc 29.7 g/dl (32-36); Mean Corpuscular Hemoglobin 24.3 pg (26-34); Mean Corpuscular Volume 81.7 fl (80-100); Mean Platelet Volume 10.1 fl (7.4-10.4); Monocytes Absolute Auto 0.8 K/mm3 (0.1-0.6); Monocytes Percent Auto 9.4 % (2.6-8.5); Neutrophils Absolute Auto 6.8 K/mm3 (1.3-6.7); Nucleated Red Blood Cells Perc 0.6 % (0.0-0.2); Platelet Count Result 293 k/mm3 (150-375); Red Blood Count 3.01 M/mm3 (4.2-5.4); Red Cell Distribution Width 18.5 % (11.5-14.5); White Blood Count 8.9 K/mm3 (4.5-10.0)
[2023-06-17 05:23] LABS: Anion Gap 5 mmol/L (4-12); Blood Urea Nitrogen 22 mg/dL (7-17); Calcium 8.7 mg/dL (8.4-10.2); Carbon Dioxide 27 mmol/L (22-30); Chloride 106 mmol/L (98-107); Estimated CRCL calculation 48 ml/min; Estimated Glomerular Filt Rate > 60; Glucose 136 mg/dL (65-110); Potassium 3.8 mmol/L (3.4-5.0); Sodium 138 mmol/L (137-145)
[2023-06-17 05:40] LABS: Anisocytosis 1+; Ovalocytes 2+; Platelet Estimate Adequate (Adequate); Schistocytes Rare
[2023-06-17] MEDS: guaiFENesin/DEXTROMETHORPHAN 10 ML UDC PO (06:15)
[2023-06-17 08:16] LABS: Glucose Point of Care 57 mg/dl (65-105)
[2023-06-17] MEDS: FLUTICASONE/SALMETEROL 115-21 MCG INHALER 1 PUFF 2 PUFF INHALATION ×2 (08:54→20:57)
[2023-06-17 08:57] LABS: NT Pro B Type Natriuretic Pept 28400 pg/mL (19.9-100)
--- NOTE | 2023-06-17 09:03 | PM.IMPN ---
Progress Note: A&P Assessment and Plan (1) Pneumonia: Qualifiers: Laterality: right Lung location: lower lobe of lung Pneumonia type: due to unspecified organism Qualified Code(s): J18.9 - Pneumonia, unspecified organism Code(s): J18.9 - Pneumonia, unspecified organism Status: Acute Assessment and Plan: Improving Blood culture negative Will continue current treatment. Monitor labs and cultures. (2) COPD exacerbation: Code(s): J44.1 - Chronic obstructive pulmonary disease with (acute) exacerbation Status: Acute Assessment and Plan: Improving Will continue current treatment Oxygen requirment has decreased (3) MRSA infection (methicillin-resistant Staphylococcus aureus): Code(s): A49.02 - Methicillin resistant Staphylococcus aureus infection, unspecified site Status: Acute Assessment and Plan: Stable on current medications, we will continue current treatment (4) Acute kidney injury: Code(s): N17.9 - Acute kidney failure, unspecified Status: Acute Assessment and Plan: Improved (5) Type 2 diabetes mellitus with hyperglycemia, with long-term current use of insulin: Code(s): E11.65 - Type 2 diabetes mellitus with hyperglycemia; Z79.4 - [facility]DC (current) use of insulin Status: Acute Assessment and Plan: Stable on current medications, we will continue current treatment (6) Eczema: Qualifiers: Eczema type: unspecified Qualified Code(s): L30.9 - Dermatitis, unspecified Code(s): L30.9 - Dermatitis, unspecified Status: Acute Assessment and Plan: Stable on current medications, we will continue current treatment (7) Fluid overload: Code(s): E87.70 - Fluid overload, unspecified Status: Acute Assessment and Plan: BNP slightly high. Will give Lasix for few days. Monitor closely. (8) Anemia of chronic disease: Code(s): D63.8 - Anemia in other chronic diseases classified elsewhere Status: Acute Assessment and Plan: Stable on current medications, will continue current treatment Plan Possible dc in am Improving Increase activity Code status DNR DVT prophylaxis SCD boots Subjective Date/time seen: 06/17/23 09:03 Interval history: Patient was seen during the morning rounds today. No new overnight complaints. Mild sob, no chest pain. No abdominal pain, no nausea. Mood stable. Review of Systems Review of Systems: 12 systems were reviewed with pertinent positives and negatives per HPI. Except as documented in the HPI, all other systems were reviewed and are negative. All systems reviewed & are unremarkable except as noted in HPI and below Exam Narrative: PHYSICAL EXAMINATION: Vital signs: Please see the chart General physical exam: Patient lying in bed, pleasant cooperative to exam, appears to be tired, weak and fatigued with shortness of breath Head/eyes: Atraumatic, EOMI, PERRLA ENT: Moist mucous membranes, nasal passages clear Neck: Supple, full range of motion, trachea midline CVS: S1 + S2, regular rate and rhythm, no murmurs Respiratory: Air entry is decreased, few rales at bases. Abdomen: Soft, non-tender, bowel sounds +ve, no organomegaly Extremities: No clubbing, no cyanosis, no edema, no calf tenderness Musculoskeletal: Moves all, decreased range of motion, no muscle spasms Skin: Warm, dry, no jaundice, no cyanosis Neurological: Awake, alert, oriented x 3, cranial nerves II-XII intact, no focal neurological deficits Psychiatric: Normal mood, non suicidal Const: Other: No acute distress, well-developed well-nourished, appears stated age HENMT: Other: Mucous membranes are dry, no oral pharyngeal erythema, head is normocephalic atraumatic Eyes: Other: Pupils are equal and reactive with evidence of prior cataract replacement surgery bilateral, no scleral icterus Neck: Other: No JVD, no lymphade
[2023-06-17 09:11] LABS: Glucose Point of Care 83 mg/dl (65-105)
[2023-06-17] MEDS: ESCITALOPRAM OXALATE 10 MG TABLET PO (09:23)
[2023-06-17] MEDS: BENZONATATE 100 MG CAPSULE PO ×3 (09:23→16:06)
[2023-06-17] MEDS: FOLIC ACID 1 MG TABLET PO (09:23)
[2023-06-17] MEDS: allopurinoL 300 MG TABLET PO (09:23)
[2023-06-17] MEDS: PANTOPRAZOLE 40 MG TABLET PO ×2 (09:23→20:04)
[2023-06-17] MEDS: FERROUS SULFATE 325 MG TABLET DR PO ×2 (09:23→16:06)
[2023-06-17] MEDS: CYANOCOBALAMIN 500 MCG TABLET PO (09:24)
[2023-06-17] MEDS: NYSTATIN 100,000 UNITS/ML SUSP 5 ML ORAL.SUSP PO ×2 (09:24→20:04)
[2023-06-17] MEDS: FUROSEMIDE INJ 40 MG/4 ML VIAL IV PUSH (09:24)
[2023-06-17 11:48] LABS: Glucose Point of Care 45 mg/dl (65-105)
[2023-06-17 11:48] LABS: Glucose Point of Care 51 mg/dl (65-105)
[2023-06-17] MEDS: DEXTROSE 50% 25 GM/50 ML SYRINGE IV PUSH ×2 (11:53→16:58)
[2023-06-17 12:36] LABS: Glucose Point of Care 85 mg/dl (65-105)
[2023-06-17 13:19] LABS: Glucose Point of Care 126 mg/dl (65-105)
[2023-06-17] MEDS: AZITHROMYCIN 500 MG/NS 250 ML 500 MG/250 ML BAG 250 MG IVPB (16:05)
[2023-06-17] MEDS: cefTRIAXone 2 GM/NS 100 ML 2 GM/100 ML BAG IVPB (16:05)
[2023-06-17 16:58] LABS: Glucose Point of Care 65 mg/dl (65-105)
[2023-06-17 18:14] LABS: Glucose Point of Care 108 mg/dl (65-105)
[2023-06-17 18:49] LABS: Vancomycin Trough 19.4 ug/mL (10.0-20.0)
[2023-06-17] MEDS: VANCOMYCIN 1,250 MG/NS 250 ML 1,250 MG/250 ML BAG 166 MG IVPB (20:02)
[2023-06-17] MEDS: SIMVASTATIN 20 MG TABLET 40 MG PO (20:05)
[2023-06-17 20:50] LABS: Glucose Point of Care 95 mg/dl (65-105)
[2023-06-17] MEDS: oxyCODONE/ACETAMINOPHEN (*CRX) 5-325 MG TABLET 1 TABLET PO (23:59)
[2023-06-18] VITALS (14 sets, daily range): BP systolic 121–141; BP diastolic 79–87; PULSE 104–122; RESP 17–22; TEMP 36.2–36.5; O2SAT 95–98
--- NOTE | 2023-06-18 02:06 | PCRCNOTE ---
Patient refused her 0200 breathing treatment. She stated she wanted to continue sleeping. Patient's next scheduled treatment will be at 0800.
[2023-06-18] MEDS: SALINE LOCK FLUSH 20 ML IV PUSH (04:34)
[2023-06-18] MEDS: SALINE LOCK FLUSH 10 ML IV PUSH ×3 (04:34→21:04)
[2023-06-18 05:12] LABS: Alanine Aminotransferase 15 U/L (6-35); Albumin Level 3.1 g/dL (3.5-5.1); Alkaline Phosphatase 77 U/L (38-126); Anion Gap 6 mmol/L (4-12); Aspartate Amino Transferase 21 U/L (14-36); Bilirubin,Total 0.2 mg/dL (0.2-1.3); Blood Urea Nitrogen 17 mg/dL (7-17); Calcium 8.4 mg/dL (8.4-10.2); Carbon Dioxide 27 mmol/L (22-30); Chloride 105 mmol/L (98-107); Estimated CRCL calculation 44 ml/min; Estimated Glomerular Filt Rate 54; Glucose 72 mg/dL (65-110); Potassium 3.5 mmol/L (3.4-5.0); Sodium 138 mmol/L (137-145)
[2023-06-18] MEDS: FLUTICASONE/SALMETEROL 115-21 MCG INHALER 1 PUFF 2 PUFF INHALATION ×2 (07:50→19:20)
[2023-06-18] MEDS: IPRATROPIUM 0.5 MG/ALBUTEROL SULFATE 2.5 MG AMPUL.NEB 3 ML INHALATION ×3 (07:50→19:20)
[2023-06-18 08:19] LABS: Glucose Point of Care 58 mg/dl (65-105)
[2023-06-18] MEDS: POTASSIUM CHLORIDE 20 MEQ ER TABLET PO (08:35)
[2023-06-18] MEDS: predniSONE 20 MG TABLET 40 MG PO ×2 (08:35→16:53)
[2023-06-18] MEDS: NYSTATIN 100,000 UNITS/ML SUSP 5 ML ORAL.SUSP PO ×4 (08:35→21:04)
[2023-06-18] MEDS: PANTOPRAZOLE 40 MG TABLET PO ×2 (08:36→21:04)
[2023-06-18] MEDS: FERROUS SULFATE 325 MG TABLET DR PO ×2 (08:36→16:54)
[2023-06-18] MEDS: allopurinoL 300 MG TABLET PO (08:36)
[2023-06-18] MEDS: CYANOCOBALAMIN 500 MCG TABLET PO (08:36)
[2023-06-18] MEDS: ESCITALOPRAM OXALATE 10 MG TABLET PO (08:36)
[2023-06-18] MEDS: FUROSEMIDE INJ 40 MG/4 ML VIAL IV PUSH (08:36)
[2023-06-18] MEDS: BENZONATATE 100 MG CAPSULE PO ×3 (08:36→16:54)
[2023-06-18] MEDS: FOLIC ACID 1 MG TABLET PO (08:36)
--- NOTE | 2023-06-18 10:14 | PM.IMPN ---
Progress Note: A&P Assessment and Plan (1) Anemia of chronic disease: Code(s): D63.8 - Anemia in other chronic diseases classified elsewhere Status: Acute (2) Fluid overload: Code(s): E87.70 - Fluid overload, unspecified Status: Acute (3) Abnormal CT scan, chest: Code(s): R93.89 - Abnormal findings on diagnostic imaging of other specified body structures Status: Acute (4) Type 2 diabetes mellitus with hyperglycemia, with long-term current use of insulin: Code(s): E11.65 - Type 2 diabetes mellitus with hyperglycemia; Z79.4 - longterm (current) use of insulin Status: Acute (5) COPD exacerbation: Code(s): J44.1 - Chronic obstructive pulmonary disease with (acute) exacerbation Status: Acute (6) Pneumonia: Qualifiers: Laterality: right Lung location: lower lobe of lung Pneumonia type: due to unspecified organism Qualified Code(s): J18.9 - Pneumonia, unspecified organism Code(s): J18.9 - Pneumonia, unspecified organism Status: Acute (7) COPD exacerbation: Code(s): J44.1 - Chronic obstructive pulmonary disease with (acute) exacerbation Status: Acute (8) Acute kidney injury: Code(s): N17.9 - Acute kidney failure, unspecified Status: Acute Plan (1) Pneumonia: ?Qualifiers: ?Laterality:?right??Lung location:?lower lobe of lung??Pneumonia type:?due to unspecified organism? Qualified Code(s):?J18.9 - Pneumonia, unspecified organism ?Code(s): J18.9 - Pneumonia, unspecified organism ?Status:?Acute ?Assessment and Plan: Improving Blood culture negative Monitor labs and cultures. Received vancomycin, azithromycin and ceftriaxone Change to cefdinir p.o. (2) COPD exacerbation: ?Code(s): J44.1 - Chronic obstructive pulmonary disease with (acute) exacerbation ?Status:?Acute ?Assessment and Plan: Improving Will continue current treatment Oxygen requirment has decreased Scattered wheezing, start prednisone p.o. 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 Qualified Code(s):?L30.9 - Dermatitis, unspecified ?Code(s): L30.9 - Dermatitis, unspecified ?Status:?Acute ?Assessment and Plan: Stable on current medications, we will continue current treatment (7) Fluid overload: ?Code(s): E87.70 - Fluid overload, unspecified ?Status:?Acute ?Assessment and Plan: BNP slightly high.? Will give Lasix for few days.? Monitor closely. (8) Anemia of chronic disease: ?Code(s): D63.8 - Anemia in other chronic diseases classified elsewhere ?Status:?Acute ?Assessment and Plan: Stable on current medications, will continue current treatment Follow-up stool guaiac, iron panel, ferritin level Subjective Date/time seen: 06/18/23 10:14 Interval history: I saw on exam patient today, patient feels better, still has cough and some shortness of breath with exertion. Patient is afebrile, blood pressure stable, pulse ox was normal limit on room air, labs reviewed, hemoglobin 7.7 at baseline, patient denies melena, red blood per rectum Exam Narrative: PHYSICAL EXAMINATION: Vital signs: Pl
[2023-06-18 10:31] LABS: Basophils Percent Auto 0.5 % (0.2-1.2); Eosinophils Absolute Auto 0.1 K/mm3 (0-0.3); Hematocrit 26.5 % (37.0-47.0); Hemoglobin 7.7 g/dL (12.0-15.0); Immature Granulocyte Absolute 0.31 K/mm3 (0.00-0.031); Immature Granulocyte Percent A 3.8 % (0-0.5); Mean Corpuscular HGB Conc 29.1 g/dl (32-36); Mean Corpuscular Hemoglobin 24.6 pg (26-34); Mean Corpuscular Volume 84.7 fl (80-100); Mean Platelet Volume 10.5 fl (7.4-10.4); Monocytes Absolute Auto 0.7 K/mm3 (0.1-0.6); Monocytes Percent Auto 8.3 % (2.6-8.5); Neutrophils Absolute Auto 5.3 K/mm3 (1.3-6.7); Neutrophils Percent Auto 64.4 % (45.5-73.1); Nucleated Red Blood Cells Perc 1.2 % (0.0-0.2); Platelet Count Result 334 k/mm3 (150-375); Red Blood Count 3.13 M/mm3 (4.2-5.4); Red Cell Distribution Width 18.8 % (11.5-14.5); White Blood Count 8.2 K/mm3 (4.5-10.0)
[2023-06-18 12:17] LABS: Glucose Point of Care 190 mg/dl (65-105)
[2023-06-18] MEDS: CEFDINIR 300 MG CAPSULE PO ×2 (12:39→21:04)
[2023-06-18] MEDS: ACETAMINOPHEN 325 MG TABLET 650 MG PO (12:39)
[2023-06-18] MEDS: guaiFENesin/CODEINE (*CRX) 200/20 MG 10 ML SYRUP PO (12:39)
[2023-06-18 16:43] LABS: Glucose Point of Care 409 mg/dl (65-105)
[2023-06-18] MEDS: INSULIN ASPART (*BKC) 100 UNITS/ML SUB-Q ×2 (16:54→21:19)
[2023-06-18] MEDS: INSULIN ASPART (*BKC) 100 UNITS/ML 7 UNITS SUB-Q (16:54)
[2023-06-18] MEDS: AZITHROMYCIN 250 MG TABLET 500 MG PO (16:54)
[2023-06-18 19:04] LABS: IFOB Positive Control Positive; Immunochemical Fecal Occult Bl Negative (N)
[2023-06-18] MEDS: SIMVASTATIN 20 MG TABLET 40 MG PO (21:04)
[2023-06-18] MEDS: MELATONIN 5 MG TABLET 10 MG PO (21:11)
[2023-06-18 21:13] LABS: Glucose Point of Care 371 mg/dl (65-105)
[2023-06-19] VITALS (11 sets, daily range): BP systolic 134; BP diastolic 70; PULSE 90–116; RESP 18–22; TEMP 36.2; O2SAT 96–97
[2023-06-19] MEDS: IPRATROPIUM 0.5 MG/ALBUTEROL SULFATE 2.5 MG AMPUL.NEB 3 ML INHALATION ×3 (01:11→13:29)
[2023-06-19 05:14] LABS: Basophils Percent Auto 0.2 % (0.2-1.2); Hematocrit 25.8 % (37.0-47.0); Hemoglobin 7.6 g/dL (12.0-15.0); Immature Granulocyte Absolute 0.14 K/mm3 (0.00-0.031); Immature Granulocyte Percent A 2.4 % (0-0.5); Lymphocytes Percent Auto 8.4 % (18.3-44.2); Mean Corpuscular HGB Conc 29.5 g/dl (32-36); Mean Corpuscular Hemoglobin 24.3 pg (26-34); Mean Corpuscular Volume 82.4 fl (80-100); Mean Platelet Volume 10.9 fl (7.4-10.4); Monocytes Absolute Auto 0.2 K/mm3 (0.1-0.6); Monocytes Percent Auto 2.7 % (2.6-8.5); Neutrophils Absolute Auto 5.1 K/mm3 (1.3-6.7); Neutrophils Percent Auto 86.3 % (45.5-73.1); Nucleated Red Blood Cells Perc 0.3 % (0.0-0.2); Platelet Count Result 342 k/mm3 (150-375); Red Blood Count 3.13 M/mm3 (4.2-5.4); Red Cell Distribution Width 18.6 % (11.5-14.5); White Blood Count 5.9 K/mm3 (4.5-10.0)
[2023-06-19 05:40] LABS: Macrocytosis 1+ (NORMAL); Platelet Estimate Adequate (Adequate)
[2023-06-19 05:41] LABS: Anisocytosis 1+; Hypochromasia 1+; Ovalocytes 1+; Poikilocytosis 1+; Schistocytes None Seen
[2023-06-19 06:28] LABS: Iron 63 ug/dL (37-170)
[2023-06-19 06:38] LABS: Percent Iron Saturation 20 % (20-50)
[2023-06-19] MEDS: FLUTICASONE/SALMETEROL 115-21 MCG INHALER 1 PUFF 2 PUFF INHALATION (07:50)
[2023-06-19] MEDS: NYSTATIN 100,000 UNITS/ML SUSP 5 ML ORAL.SUSP PO ×2 (08:22→12:23)
[2023-06-19] MEDS: BENZONATATE 100 MG CAPSULE PO ×2 (08:22→12:22)
[2023-06-19] MEDS: ESCITALOPRAM OXALATE 10 MG TABLET PO (08:22)
[2023-06-19] MEDS: POTASSIUM CHLORIDE 20 MEQ ER TABLET PO (08:22)
[2023-06-19] MEDS: CYANOCOBALAMIN 500 MCG TABLET PO (08:22)
[2023-06-19] MEDS: FOLIC ACID 1 MG TABLET PO (08:22)
[2023-06-19] MEDS: FERROUS SULFATE 325 MG TABLET DR PO (08:23)
[2023-06-19] MEDS: predniSONE 20 MG TABLET 40 MG PO (08:23)
[2023-06-19] MEDS: PANTOPRAZOLE 40 MG TABLET PO (08:23)
[2023-06-19] MEDS: allopurinoL 300 MG TABLET PO (08:23)
[2023-06-19] MEDS: FUROSEMIDE INJ 40 MG/4 ML VIAL IV PUSH (08:24)
[2023-06-19] MEDS: SALINE LOCK FLUSH 10 ML IV PUSH (08:24)
[2023-06-19] MEDS: INSULIN ASPART (*BKC) 100 UNITS/ML SUB-Q ×2 (08:27→12:23)
[2023-06-19 08:31] LABS: Glucose Point of Care 272 mg/dl (65-105)
[2023-06-19] MEDS: CEFDINIR 300 MG CAPSULE PO (10:18)
--- NOTE | 2023-06-19 10:38 | PM.IMPN ---
Progress Note: A&P Assessment and Plan (1) Anemia of chronic disease: Code(s): D63.8 - Anemia in other chronic diseases classified elsewhere Status: Acute (2) Fluid overload: Code(s): E87.70 - Fluid overload, unspecified Status: Acute (3) Abnormal CT scan, chest: Code(s): R93.89 - Abnormal findings on diagnostic imaging of other specified body structures Status: Acute (4) Type 2 diabetes mellitus with hyperglycemia, with long-term current use of insulin: Code(s): E11.65 - Type 2 diabetes mellitus with hyperglycemia; Z79.4 - care home (current) use of insulin Status: Acute (5) COPD exacerbation: Code(s): J44.1 - Chronic obstructive pulmonary disease with (acute) exacerbation Status: Acute (6) Pneumonia: Qualifiers: Laterality: right Lung location: lower lobe of lung Pneumonia type: due to unspecified organism Qualified Code(s): J18.9 - Pneumonia, unspecified organism Code(s): J18.9 - Pneumonia, unspecified organism Status: Acute (7) Acute kidney injury: Code(s): N17.9 - Acute kidney failure, unspecified Status: Acute Plan Pneumonia: ?Qualifiers: ?Laterality:?right??Lung location:?lower lobe of lung??Pneumonia type:?due to unspecified organism? Qualified Code(s):?J18.9 - Pneumonia, unspecified organism ?Code(s): J18.9 - Pneumonia, unspecified organism ?Status:?Acute ?Assessment and Plan: Improving Blood culture negative Monitor labs and cultures. Received vancomycin, azithromycin and ceftriaxone Change to cefdinir p.o. COPD exacerbation: ?Code(s): J44.1 - Chronic obstructive pulmonary disease with (acute) exacerbation ?Status:?Acute ?Assessment and Plan: Improving Will continue current treatment Oxygen requirment has decreased Scattered wheezing, start prednisone p.o. MRSA infection (methicillin-resistant Staphylococcus aureus): ?Code(s): A49.02 - Methicillin resistant Staphylococcus aureus infection, unspecified site ?Status:?Acute ?Assessment and Plan: Stable on current medications, we will continue current treatment Received vancomycin IV Anemia of chronic disease: ?Code(s): Follow-up stool guaiac; negative dionisio panel, ferritin level; wnl Follow-up reticulocyte Consulted heme oncologist for evaluation treatment Patient will follow up heme oncologist after discharge Acute kidney injury: ?Code(s): N17.9 - Acute kidney failure, unspecified ?Status:?Acute ?Assessment and Plan: resolved Type 2 diabetes mellitus with hyperglycemia, with long-term current use of insulin: ?Code(s): E11.65 - Type 2 diabetes mellitus with hyperglycemia; Z79.4 - care home (current) use of insulin ?Status:?Acute ?Assessment and Plan: Stable on current medications, Resume home medication on discharge (6) Eczema: ?Qualifiers: ?Eczema type:?unspecified? Qualified Code(s):?L30.9 - Dermatitis, unspecified ?Code(s): L30.9 - Dermatitis, unspecified ?Status:?Acute ?Assessment and Plan: Stable on current medications continue current treatment (7) Fluid overload: ?Code(s): E87.70 - Fluid overload, unspecified ?Status:?Acute ?Assessment and Plan: Received IV furosemide Resolved Subjective Date/time seen: 06/19/23 10:38 Interval history: I saw on exam patient today, patient feels better, patient denies chest pain, cough, shortness breath, patient still has some cough. Patient denies abdomen pain nausea vomiting diarrhea dysuria Patient is afebrile, blood pressure stable, pulse ox was normal limit on room air, Exam Narrative: GENERAL: Pleasant, in no acute distress. Well-nourished. - EYES: EOMI. Anicteric. - HENT: Moist mucous membranes. - LUNGS: Clear to auscultation bilaterally, no wheezing, rhonchi, or rales. - CARDIOVASCULAR: Regular rate and rhythm. No murm
[2023-06-19 11:48] LABS: Glucose Point of Care 277 mg/dl (65-105)
[2023-06-19 11:50] LABS: Reticulocyte Hemoglobin Conten 29.9 pg (28.2-36.6); Reticulocyte Percent 3.96 % (0.7-4.3); Reticulocytes Absolute 0.12 10^6/uL (0.02-0.10)
--- NOTE | 2023-06-19 12:59 | PDONCCN ---
HPI - Date of Consult Date/Time: 06/19/23 12:59 Requesting Physician: Jefferson Major MD Primary Care Provider: Myles Thomas, PA - Consult Narrative Reason for consult: Normocytic Anemia Narrative: Mayte Sanchez is a 77 year old female past medical history of COPD, insulin-dependent type 2 diabetes mellitus, chronic pain and gout who presented to the ER from urgent care due to shortness of breath and low blood pressures. She had occasional bright red blood in the stool. Patient had last colonoscopy in EGD done more than 5 years ago and came back normal according to her description. Her labs showed hemoglobin of 7.6. Iron studies showed iron 19, iron saturation 5%. She was started on oral iron twice a day. Repeat iron studies showed improvement. She remains anemic. She denies being a vegetarian. Denies any previous stomach surgeries. Her energy level has improved. She wanted to go home today. Review of Systems - Review of Systems All systems reviewed & are unremarkable except as noted in [facility] and [facility] Medical History: Medical History (Last Updated 06/14/23 @ 18:37 by Jefferson Major MD) Abnormal CT scan, chest Congestive heart failure COPD (chronic obstructive pulmonary disease) Diabetes mellitus with insulin therapy GERD (gastroesophageal reflux disease) Gout Hyperlipidemia Surgical History: Surgical History (Last Updated 06/13/23 @ 23:18 by Mady Grigsby DO) History of appendectomy History of coronary artery stent placement History of total hysterectomy with bilateral salpingo-oophorectomy (BSO) Status post cataract extraction of both eyes with insertion of intraocular lens Family History: Family History (Last Updated 06/13/23 @ 23:24 by Mady Grigsby DO) Father Cerebrovascular accident Mother Myocardial infarction Mother Parkinson disease Sibling Cerebrovascular accident Sibling Cerebrovascular accident Sibling Cerebrovascular accident Sibling Cerebrovascular accident Sibling Cerebrovascular accident Sibling Cerebrovascular accident Sibling Cerebrovascular accident Sibling Myocardial infarction Sibling Myocardial infarction Sibling Myocardial infarction Daughter Narcolepsy Diabetes mellitus - Social History Social History: Social History (Last Updated 06/13/23 @ 23:23 by Mady Grigsby DO) Alcohol Use: Alcohol intake: former Substance Use: Substance use: never Others: Spiritual care concerns: No Living Arrangements: Living arrangements: assisted living Smoking Status: Smoking status: Former smoker Tobacco type: cigarettes Smoking Pack-years: Smoking packs per day: 2 Smoking cigarettes per day: 40.0 Social Determinants of Health: Do You Feel Safe in your Home?: Yes Has the Lack of Transportation Kept You From Medical Appointments or From Getting Medications?: No Within the Past 12 Months, Were You Worried Whether Your Food Would Run Out Before You Got Money to Buy More?: Never True What is Your Housing Situation Today?: I Have Housing Are You Worried That in the Next 2 Months, You May Not Have Your Own Housing to Live In?: No Do You Have Trouble Paying Your Heating Or Electricity Bill?: No Do You Have Trouble Paying For Medicines?: No Are You Currently Unemployed and Looking for Work?: No Highest Level of Education Completed: High School Diploma/GED Do You Have Trouble With Childcare or the Care of a Family Member?: No Exam - Vital Signs Vital Signs - 24 hr 06/18/23 14:03 06/18/23 14:15 06/18/23 16:00 Temperature 36.4 C L Pulse Rate 112 H 120 H 112 H Respiratory Rate 20 20 22 H Blood Pressure 138/82 Pulse Oximetry 98 Oxygen Delivery Fraction of Inspired Oxygen 06/18/23 16:00 06/18/23 19:20 06/18/23 19:39 Temperature Pulse Rate 111 H 107 H 105 H Respiratory Rate 18 18 Blood Pressure Pulse Oximetry Oxygen Deli
--- NOTE | 2023-06-19 13:38 | PM.DS ---
DS: Admitting Diagnosis Discharge Date 06/19/23 Admitting Diagnosis (1) Anemia of chronic disease: ?Code(s): D63.8 - Anemia in other chronic diseases classified elsewhere ?Status:?Acute (2) Fluid overload: ?Code(s): E87.70 - Fluid overload, unspecified ?Status:?Acute (3) Abnormal CT scan, chest: ?Code(s): R93.89 - Abnormal findings on diagnostic imaging of other specified body structures ?Status:?Acute (4) Type 2 diabetes mellitus with hyperglycemia, with long-term current use of insulin: ?Code(s): E11.65 - Type 2 diabetes mellitus with hyperglycemia; Z79.4 - oil heaterman (current) use of insulin ?Status:?Acute (5) COPD exacerbation: ?Code(s): J44.1 - Chronic obstructive pulmonary disease with (acute) exacerbation ?Status:?Acute (6) Pneumonia: ?Qualifiers: ?Laterality:?right??Lung location:?lower lobe of lung??Pneumonia type:?due to unspecified organism? Qualified Code(s):?J18.9 - Pneumonia, unspecified organism ?Code(s): J18.9 - Pneumonia, unspecified organism ?Status:?Acute (7) Acute kidney injury: ?Code(s): N17.9 - Acute kidney failure, unspecified ?Status:?Acute DS: Discharge Diagnosis Discharge Diagnosis (1) Anemia of chronic disease: Code(s): D63.8 - Anemia in other chronic diseases classified elsewhere Status: Acute (2) Fluid overload: Code(s): E87.70 - Fluid overload, unspecified Status: Acute (3) Abnormal CT scan, chest: Code(s): R93.89 - Abnormal findings on diagnostic imaging of other specified body structures Status: Acute (4) Type 2 diabetes mellitus with hyperglycemia, with long-term current use of insulin: Code(s): E11.65 - Type 2 diabetes mellitus with hyperglycemia; Z79.4 - FDC (current) use of insulin Status: Acute (5) COPD exacerbation: Code(s): J44.1 - Chronic obstructive pulmonary disease with (acute) exacerbation Status: Acute (6) Pneumonia: Qualifiers: Laterality: right Lung location: lower lobe of lung Pneumonia type: due to unspecified organism Qualified Code(s): J18.9 - Pneumonia, unspecified organism Code(s): J18.9 - Pneumonia, unspecified organism Status: Acute (7) Acute kidney injury: Code(s): N17.9 - Acute kidney failure, unspecified Status: Acute DS: Summary Hospital Course Hospital Course: Per H&P, ' 69-year-old female with a past medical history of COPD, insulin-dependent type 2 diabetes mellitus, chronic pain and gout who presented to the ER from urgent care due to shortness of breath and low blood pressures.? 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 She chose to go to urgent care and was subsequently directed to ER when her blood pressures were found to be in the 80s.? She reports that she has been having nasal congestion, cough occasionally productive of yellow sputum, sinus pressure and wheezing for 4 days.? She denies any fevers or chills.? On arrival to the ER the patient's blood pressures were 80/49.? She received 1 dose of IV Solu-Medrol 125 mg and 1 L of IV fluids with normalization of her blood pressure.? She reports that is not unusual for to get dehydrated when she does not feel well.? She had had decreased urine output but is improved since admission.? She denies any dysuria or changes in bowel habits.? Her last bowel movement was just prior to my evaluation and was normally formed.? She reports that she has a mild headache that is usually improved with Tylenol.? She does have a prescription for Percocet due to her chronic low back pain but she reports that she rarely takes this.? She reports chronic pruritus of her arms and legs.? She has multiple areas of abrasions. The following med issues have been addressed during hospitalization Pneumonia: ?Qualifiers: ?Laterality:?right??Lung location:?lower lob
[2023-06-19] MEDS: ACETAMINOPHEN 325 MG TABLET 650 MG PO (13:56)
[2023-06-19 15:02] LABS: SARS-CoV-2 RNA PCR Negative (Negative)
== END 2023-06-19 15:10 | DRG 194 ==
LOC: ANHED 14:27 → ANHIMU 17:56
PROVIDERS: Emergency Medicine; Family Medicine; Internal Medicine; Admitting Provider Internal Medicine; Emergency Provider Physician Assistant; PCP Physician Assistant Medical; Visit Provider Hospitalist
DX: J18.9 Pneumonia, unspecified organism (principal); J44.0 Chronic obstructive pulmonary disease with (acute) lower respiratory infection; J44.1 Chronic obstructive pulmonary disease with (acute) exacerbation; N17.9 Acute kidney failure, unspecified; I50.9 Heart failure, unspecified; I95.9 Hypotension, unspecified; E11.9 Type 2 diabetes mellitus without complications; K21.9 Gastro-esophageal reflux disease without esophagitis; E78.5 Hyperlipidemia, unspecified; L30.9 Dermatitis, unspecified; E87.70 Fluid overload, unspecified; E83.42 Hypomagnesemia; D50.9 Iron deficiency anemia, unspecified; D63.8 Anemia in other chronic diseases classified elsewhere; M10.9 Gout, unspecified; Z20.822 Contact with and (suspected) exposure to COVID-19; Z22.322 Carrier or suspected carrier of Methicillin resistant Staphylococcus aureus; Z11.52 Encounter for screening for COVID-19; Z95.5 Presence of coronary angioplasty implant and graft; Z79.4 Long term (current) use of insulin; Z87.891 Personal history of nicotine dependence
CPT/HCPCS: 36415; 36569; 71046; 80048; 80053; 80202; 82274; 82607; 82728; 82746; 82948; 83540; 83550; 83605; 83735; 83880; 84100; 85025; 85027; 85046; 86140; 87040; 87070; 87205; 87635; 87637; 87641; 93005; 94640; 96365; 96366; 96367; 96375; 99213; 99285; A9270; G0378; G0463; J0456; J0696; J1756; J1815; J1940; J2930; J3370; J3420; J3475; J7030; J7050; J7512

== ENCOUNTER 2023-08-15 00:34 | Observation (INO) | payer MEDICARE, SELFPAY ==
[2023-08-15] VITALS (15 sets, daily range): BP systolic 88–153; BP diastolic 57–80; PULSE 66–117; RESP 14–21; TEMP 36.4–36.7; O2SAT 93–100; BMI 25.9
--- NOTE | ~2023-08-15 | XR_ITS ---
Portable chest x-ray Comparison: 06/17/2023 Clinical History: Weakness Findings: Probable chronic linear scarring right lung base. No acute pulmonary abnormality seen. Pos sible COPD. Cardiomediastinal silhouette is stable. Bones and soft tissues are unremarkable. Impression: No acute pulmonary abnormality. Possible COPD. Reviewed, dictated and finalized at location . Impression: No acute pulmonary abnormality. Possible COPD.
--- NOTE | ~2023-08-15 | CT_ITS ---
Noncontrast CT scan of the cervical spine Technique: Multiple contiguous axial [address] images of the cervical spine were obtained and rec onstructed in 2D sagittal and coronal planes on the acquisition scanner. Dose reduction technique was used on this scan by utilizing automated exposure control, adjustment of the mA and/or kV according to patient size. The dose-length product (DLP) was 449.58 mGy-cm. Clinical History: Pain Findings: No fractures or dislocations. Intervertebral disc spaces are preserved. There are mild sca ttered facet joint degenerative changes. No prevertebral soft tissue swelling. Impression: No fracture or subluxation of the cervical spine. Reviewed, dictated and finalized at location . Impression: No fracture or subluxation of the cervical spine.
--- NOTE | ~2023-08-15 | CT_ITS ---
Noncontrast CT scan of the lumbar spine CLINICAL HISTORY: Back pain TECHNIQUE: Axial noncontrast imaging of the lumbar spine was performed. Sagittal and coronal reformat christopher images were constructed. Dose reduction technique was used on this scan by utilizing automated ex posure control and iterative reconstruction technique. The dose-length product (DLP) was 1073.74 mGy- cm. FINDINGS: Questionable minimal chronic loss of height of L1. There is chronic L2 compression fracture with vertebroplasty cement. No other fracture or subluxation seen. Intervertebral disc spaces are re latively well-preserved. At L1-L2, there is no definite disc bulge or herniation. There is no facet arthropathy. No central ca nal stenosis or definite neural foraminal narrowing. At L2-L3, there is no significant disc bulge or herniation. There is minimal facet arthropathy. No ce ntral canal stenosis or definite neural foraminal narrowing. At L3-L4, there is no significant disc bulge or herniation. There is mild facet arthropathy. No centr al canal stenosis or definite neural foraminal narrowing. At L4-L5, there is no significant disc bulge or herniation. There is advanced facet arthropathy. No c entral canal stenosis. There is mild left neural foraminal narrowing. Right neural foramen preserved. At L5-S1, there is no disc bulge or herniation. No spinal canal stenosis or definite neural foraminal narrowing. Paravertebral soft tissues are unremarkable. Moderate to large hiatal hernia partially imaged. Impression: No definite acute abnormality. Chronic L2 compression fracture with vertebroplasty cement. Possible mild chronic loss of height of L 1. Minimal degenerative change, as above. Moderate to large hiatal hernia, partially imaged. Reviewed, dictated and finalized at location . Impression: No definite acute abnormality. Chronic L2 compression fracture with vertebroplasty cement. Possible mild chron ic loss of height of L1. Minimal degenerative change, as above. Moderate to large hiatal hernia, partially imaged.
--- NOTE | ~2023-08-15 | CT_ITS ---
Non-contrast Head CT History: Altered mental status COMPARISON: 08/24/2022 Technique: Axial non-contrast imaging of the brain was performed. Dose reduction technique was used on this scan by utilizing automated exposure control and iterative reconstruction technique. The dose -length product (DLP) was 681.00 mGy-cm. Findings: There is no evidence of intracranial hemorrhage, mass lesion, or acute infarct. Brain par enchyma appears normal. The ventricles and subarachnoid spaces are normal in size. The calvarium ap pears normal. The visualized paranasal sinuses and mastoid air cells are clear. Impression: No significant abnormality seen. Reviewed, dictated and finalized at location . Impression: No significant abnormality seen.
--- NOTE | 2023-08-15 00:48 | ECG_ITS ---
SEE SCANNED COPY FOR CONFIRMED REPORT MTDD
[2023-08-15 00:56] LABS: Glucose Point of Care 95 mg/dl (65-105)
[2023-08-15 01:12] LABS: Basophils Absolute Auto 0.1 K/mm3 (0.0-0.1); Basophils Percent Auto 0.9 % (0.2-1.2); Eosinophils Absolute Auto 0.1 K/mm3 (0-0.3); Hematocrit 33.6 % (37.0-47.0); Hemoglobin 10.3 g/dL (12.0-15.0); Immature Granulocyte Absolute 0.05 K/mm3 (0.00-0.031); Immature Granulocyte Percent A 0.6 % (0-0.5); Lymphocytes Absolute Auto 1.27 K/mm3 (0.9-3.2); Lymphocytes Percent Auto 14.2 % (18.3-44.2); Mean Corpuscular HGB Conc 30.7 g/dl (32-36); Mean Corpuscular Hemoglobin 25.9 pg (26-34); Mean Corpuscular Volume 84.6 fl (80-100); Mean Platelet Volume 9.9 fl (7.4-10.4); Monocytes Absolute Auto 0.6 K/mm3 (0.1-0.6); Monocytes Percent Auto 6.1 % (2.6-8.5); Neutrophils Absolute Auto 6.9 K/mm3 (1.3-6.7); Neutrophils Percent Auto 77.2 % (45.5-73.1); Platelet Count Result 236 k/mm3 (150-375); Red Blood Count 3.97 M/mm3 (4.2-5.4); Red Cell Distribution Width 20.6 % (11.5-14.5)
[2023-08-15 01:20] LABS: Appearance Urine Clear (Clear); Bacteria Urine 4+ /hpf; Bilirubin Urine Negative (Negative); Blood Urine Non-Hemolyzed Trace (Negative); Color Urine Yellow (Yellow); Glucose Urine UA Negative (Negative); Ketones Urine Negative (Negative); Leukocyte Esterase Ur 2+ LEU/UL (Negative); Nitrate Urine Positive (Negative); Non Pathogenic Casts 0-2; Protein Urine 1+ mg/dL (Negative); RBC Urine 0-2 /hpf (0-2); Specific Grav Ur 1.011 (1.001-1.035); Squamous Epithelial Cell Urine None Seen /hpf (Few); Urobilinogen Urine 0.2 mg/dL (<2.0); WBC Urine >100 /hpf (0-3); pH Urine 5.5 (5.0-9.0)
[2023-08-15 01:22] LABS: Add Urine Microscopic? YES
[2023-08-15 01:23] LABS: Alanine Aminotransferase 11 U/L (6-35); Albumin Level 3.7 g/dL (3.5-5.1); Alkaline Phosphatase 127 U/L (38-126); Anion Gap 9 mmol/L (4-12); Aspartate Amino Transferase 20 U/L (14-36); Bilirubin,Total 0.3 mg/dL (0.2-1.3); Blood Urea Nitrogen 75 mg/dL (7-17); Calcium 9.3 mg/dL (8.4-10.2); Carbon Dioxide 20 mmol/L (22-30); Chloride 113 mmol/L (98-107); Estimated Glomerular Filt Rate 29; Glucose 94 mg/dL (65-110); Potassium 3.8 mmol/L (3.4-5.0); Sodium 142 mmol/L (137-145)
[2023-08-15 01:26] LABS: INR 1.4; Prothrombin Time 18.5 Seconds (11.1-14.7)
[2023-08-15 01:27] LABS: Partial Thromboplastin Time 39.4 Seconds (22.3-36.8)
[2023-08-15 02:35] LABS: Magnesium 1.1 mg/dL (1.6-2.3)
[2023-08-15 02:38] LABS: Creatine Kinase 38 U/L (30-135)
[2023-08-15 02:47] LABS: NT Pro B Type Natriuretic Pept 1830 pg/mL (19.9-100)
[2023-08-15 02:49] LABS: Troponin I 0.053 ng/mL (0.000-0.034)
[2023-08-15 02:55] LABS: Procalcitonin 0.1 ng/mL
[2023-08-15 03:00] LABS: Alveolar/Arterial O2 Gradient 11.7 mmHg; Base Excess ABG -5.4 mEq/l (+/-2.0); Fractional Inspired Oxygen 21 %; HCO3 ABG 21.2 mEq/l (22.0-26.0); Oxygen Content ABG 14.7 %vol (16.0-22.0); Oxygen Saturation ABG 94.8 % (95.0-100.0); Oxyhemoglobin 94.4 % THb (90.0-100.0); PCO2 ABG 46.1 mmHg (35.0-45.0); PO2 ABG 82.8 mmHg (80.0-100.0); PO2 FiO2 Ratio Arterial Blood 3.94 %
[2023-08-15 03:02] LABS: Modified Allen's Test Pass; Site Drawn RIGHT RADIAL
[2023-08-15] MEDS: SODIUM CHLORIDE 0.9% IV 1,000 ML 999 ML IV CONT ×2 (03:02→05:10)
[2023-08-15 03:23] LABS: Lactic Acid Reflex 0.6 mmol/L (0.7-2.0)
[2023-08-15 03:50] LABS: Influenza A QL RT-PCR Negative (Negative); Influenza B QL RT-PCR Negative (Negative); RSV RNA, RT-PCR Negative (Negative); SARS-CoV-2 RNA PCR Negative (Negative)
--- NOTE | 2023-08-15 03:51 | ED.GENADULT ---
HPI - General Adult General Chief complaint: Altered Mental Status Stated complaint: LOW BLOOD GLUCOSE, AMS, FALL Time Seen by Provider: 08/15/23 01:59 History of Present Illness HPI narrative: Patient is a 78-year-old female who presents emergency room with chief complaint of altered mental status. Patient is resident at [facility] and was found confused and hypoglycemic by EMS. The patient has history of COPD also history of diabetes and is on anticoagulants for aortic stenosis. The patient is scheduled to have a TAVR procedure in the near future. Patient has been recently treated for a UTI and has been on Macrobid. Related Data Home Medications Medication Instructions Recorded Confirmed allopurinol 300 mg tablet 300 mg PO DAILY 10/07/20 06/13/23 melatonin 10 mg tablet 10 mg PO HS PRN Insomnia 10/07/20 06/13/23 pantoprazole 40 mg tablet,delayed 40 mg PO BID 10/07/20 06/13/23 release albuterol sulfate 2.5 mg/3 mL 2.5 mg inhalation DAILY 05/14/23 06/13/23 (0.083 %) solution for nebulization amitriptyline 50 mg tablet 50 mg PO HS 05/14/23 06/13/23 budesonide-formoterol HFA 160 2 puff inhalation BID 05/14/23 06/13/23 mcg-4.5 mcg/actuation aerosol inhaler (Breyna) denosumab 60 mg/mL subcutaneous 60 mg subcut Q6M 05/14/23 06/13/23 syringe (Prolia) docusate sodium 100 mg capsule 100 mg PO PRN PRN Constipation 05/14/23 06/13/23 insulin aspart U-100 100 unit/mL See Rx Instructions .Route .COMPLEX 05/14/23 06/13/23 (3 mL) subcutaneous pen (Novolog FlexPen U-100 Insulin aspart) naloxone 4 mg/actuation nasal spray 4 mg intranasal PRN PRN Opioid 05/14/23 06/13/23 Overdose oxycodone-acetaminophen 5 mg-325 1 tablet PO Q8H PRN Pain 05/14/23 06/13/23 mg tablet pen needle, diabetic, safety 30 05/14/23 06/13/23 gauge x 1/3 (Novofine Autocover) simvastatin 40 mg tablet 40 mg PO HS 05/14/23 06/13/23 triamcinolone acetonide 0.5 % See Rx Instructions .Route .COMPLEX 05/14/23 06/13/23 topical cream escitalopram oxalate 10 mg tablet 10 mg PO DAILY 06/13/23 06/13/23 Allergies Allergy/AdvReac Type Severity Reaction Status Date / Time ciprofloxacin AdvReac Mild Rash Verified 06/13/23 12:21 cyclobenzaprine AdvReac Mild Rash Verified 06/13/23 12:21 hydromorphone AdvReac Mild Rash Verified 06/13/23 12:21 latex AdvReac Mild Rash Verified 06/13/23 12:21 Penicillins AdvReac Mild Rash Verified 06/13/23 12:21 tetracycline AdvReac Mild Rash Verified 06/13/23 12:21 Review of Systems Review of Systems: A 10 system review of systems was completed on the patient and is negative except for what is stated in the HPI. Nursing and ancillary documentation was reviewed. [facility] Past Medical History Medical History Abnormal CT scan, chest Congestive heart failure COPD (chronic obstructive pulmonary disease) Diabetes mellitus with insulin therapy GERD (gastroesophageal reflux disease) Gout Hyperlipidemia Surgical History Surgical History History of appendectomy History of coronary artery stent placement History of total hysterectomy with bilateral salpingo-oophorectomy (BSO) Status post cataract extraction of both eyes with insertion of intraocular lens Family History Family History Father Cerebrovascular accident Mother Myocardial infarction Mother Parkinson disease Sibling Cerebrovascular accident Sibling Cerebrovascular accident Sibling Cerebrovascular accident Sibling Cerebrovascular accident Sibling Cerebrovascular accident Sibling Cerebrovascular accident Sibling Cerebrovascular accident Sibling Myocardial infarction Sibling Myocardial infarction Sibling Myocardial infarction Daughter Narcolepsy Diabetes mellitus Social History Social History (Reviewed 08/15/23 @ 03:52 by Lanre Waldron
[2023-08-15] MEDS: MAGNESIUM SULF 2 GM/WATER 50ML 2 GM/50 ML BAG IVPB ×2 (04:11→12:23)
[2023-08-15] MEDS: ASPIRIN 81 MG CHEWABLE TABLET 324 MG PO (04:19)
[2023-08-15 04:43] LABS: Glucose Point of Care 89 mg/dl (65-105)
[2023-08-15 04:58] LABS: Base Excess ABG -8.2 mEq/l (+/-2.0); Fractional Inspired Oxygen 21 %; HCO3 ABG 17.6 mEq/l (22.0-26.0); Oxygen Content ABG 14.8 %vol (16.0-22.0); Oxygen Saturation ABG 96.7 % (95.0-100.0); Oxyhemoglobin 96.4 % THb (90.0-100.0); PCO2 ABG 37.2 mmHg (35.0-45.0); PO2 ABG 96.2 mmHg (80.0-100.0); PO2 FiO2 Ratio Arterial Blood 4.58 %; Total Hemoglobin 10.8 g/dL (12.0-18.0)
--- NOTE | 2023-08-15 04:58 | ECG_ITS ---
SEE SCANNED COPY FOR CONFIRMED REPORT MTDD
[2023-08-15 04:59] LABS: Device BIPAP; Modified Allen's Test Pass; Site Drawn RIGHT RADIAL; pH ABG 7.293 (7.350-7.450)
[2023-08-15 05:00] LABS: Expiratory Pressure 6 cmH2O; Inspiratory Pressure 12 cmH2O
[2023-08-15 05:40] LABS: Anion Gap 8 mmol/L (4-12); Blood Urea Nitrogen 72 mg/dL (7-17); Calcium 8.9 mg/dL (8.4-10.2); Carbon Dioxide 17 mmol/L (22-30); Chloride 116 mmol/L (98-107); Estimated Glomerular Filt Rate 33; Glucose 113 mg/dL (65-110); Potassium 4.5 mmol/L (3.4-5.0); Sodium 141 mmol/L (137-145)
[2023-08-15 05:53] LABS: Troponin I 0.156 ng/mL (0.000-0.034)
--- NOTE | 2023-08-15 07:15 | ECHO_ITS ---
Patient Info Name: Mayte Sanchez Age: 78 years : 1945 Gender: Female Ht: 67 in Wt: 165 lbs BSA: 1.89 m2 HR: 88 bpm BP: 148 / 77 mmHg Technical Quality: Good Exam Date: 08/15/2023 9:49 AM Exam Location: Echo Lab Patient Status: Outpatient Admit Date: 08/15/2023 Staff Ordering Physician: Rae Sr APRN Director Sales And Trade Marketing: Frederick Seo RDCS Attending Provider: Mady Grigsby DO Referring Physician: Orin ESTRADA; Exam Type: CA echo doppler color flow Study Info Indications I21.4 - Non-ST elevation (NSTEMI) myocardial infarction Complete two-dimensional, color flow and Doppler transthoracic echocardiogram is performed. Summary 1. Complete two-dimensional, color flow and Doppler transthoracic echocardiogram is performed. 2. Left ventricular chamber dimension is normal. 3. Left ventricular systolic function is normal, estimated at 55-60%. 4. There is mild concentric increased left ventricular wall thickness. 5. The left ventricular diastolic function is grade I diastolic dysfunction. 6. E/e' 14 is mildly elevated. 7. Left atrial chamber dimension is moderately enlarged. 8. Right atrial chamber dimension is mildly enlarged. 9. There is severe aortic valve sclerosis. 10. There is severe aortic valve stenosis with a peak velocity of 472 cm/s, mean gradient of 46 mmHg, and aortic valve area of 0.6 cm2. 11. There is mild to moderate mitral valve regurgitation. 12. There is mild tricuspid valve regurgitation. 13. Mild pulmonary hypertension, estimated pulmonary arterial systolic pressure is 49 mmHg. 14. There is trace pulmonic regurgitation. Left Ventricle E/e' 14 is mildly elevated. Left ventricular chamber dimension is normal. Left ventricular systolic function is normal, estimated at 55-60%. There is mild concentric increased left ventricular wall thickness. The left ventricular diastolic function is grade I diastolic dysfunction. Right Ventricle Right ventricular systolic function is normal and with normal TAPSE 1.9 cm. Right ventricular chamber dimension is normal. Left Atria Left atrial chamber dimension is moderately enlarged. Right Atria Right atrial chamber dimension is mildly enlarged. Aortic Valve The aortic valve is trileaflet. There is severe aortic valve sclerosis. There is severe aortic valve stenosis with a peak velocity of 472 cm/s, mean gradient of 46 mmHg, and aortic valve area of 0.6 cm2. There is no aortic valve regurgitation. Pulmonic Valve There is trace pulmonic regurgitation. Mitral Valve There is no mitral valve stenosis. There is mild to moderate mitral valve regurgitation. Tricuspid Valve There is mild tricuspid valve regurgitation. Mild pulmonary hypertension, estimated pulmonary arterial systolic pressure is 49 mmHg. Pericardium/Pleural There is no pericardial effusion. Inferior Vena Cava Normal inferior vena cava with >50% collapse upon inspiration consistent with normal right atrial pressure, 5 mmHg. Aorta The aortic root size at the sinus of Valsalva is normal. Left Ventricular Outflow Tract Name Value Normal LVOT 2D LVOT Diameter 1.9 cm LVOT Doppler LVOT Peak Gradient 4 mmHg LVOT Mean Gradient 2 mmHg
[2023-08-15 07:35] LABS: Glucose Point of Care 103 mg/dl (65-105)
--- NOTE | 2023-08-15 07:47 | PM.IMHP ---
H&P: HPI History of Present Illness Date/Time: 08/15/23 07:47 Chief Complaint: Fall, altered mental status Narrative: This is a pleasantly confused 78-year-old female with a past medical history of COPD, type 2 diabetes, gout, hyperlipidemia, CAD with stent and aortic stenosis who is scheduled to have a TAVR at [facility] on 08/21/2023. The patient presented through the ER via EMS after staff at [facility] found her on the floor of her apartment. When I inquired with the patient about falling and she states she did not fall but she was found sitting on the floor. She also says that her blood sugar was low at that time but she does not recall how low. She does not remember most of the episode. There was some confusion about whether not she was having chest pain and shortness of breath. At time my assessment she denies headache, dizziness, chest pain, shortness a breath, abdominal pain, nausea, vomiting, or dysuria. In the ER she was found have a hemoglobin of 10.3, neutrophils 77.2, PT 17.5, chloride 116 carbon dioxide 17, BUN 72, creatinine 1.7, troponin 0.053, and UA concerning for infection. Chest x-ray shows no acute abnormality and head CT negative. Cervical spine CT negative and lumbar spine shows chronic L2 compression fracture with degenerative joint change and moderate to large hiatal hernia partially imaged. Urine and blood cultures were collected. EKG showed ventricular rate 101, sinus tachycardia, possible lateral myocardial infarction. She received 2 L of NS, ASA 324 mg, 1 g Rocephin, and 2 g of magnesium and was admitted to the hospitalist service for further workup. Review of Systems Review of Systems: All systems reviewed & are unremarkable except as noted in HPI and below PMFSH Past Medical History Medical History Abnormal CT scan, chest Congestive heart failure COPD (chronic obstructive pulmonary disease) Diabetes mellitus with insulin therapy GERD (gastroesophageal reflux disease) Gout Hyperlipidemia Surgical History Surgical History History of appendectomy History of coronary artery stent placement History of total hysterectomy with bilateral salpingo-oophorectomy (BSO) Status post cataract extraction of both eyes with insertion of intraocular lens Family History Family History Father Cerebrovascular accident Mother Myocardial infarction Mother Parkinson disease Sibling Cerebrovascular accident Sibling Cerebrovascular accident Sibling Cerebrovascular accident Sibling Cerebrovascular accident Sibling Cerebrovascular accident Sibling Cerebrovascular accident Sibling Cerebrovascular accident Sibling Myocardial infarction Sibling Myocardial infarction Sibling Myocardial infarction Daughter Narcolepsy Diabetes mellitus Social History Social History Social History: The patient lives in [facility]. She moved there in April 2023. She has never been but has 2 sons and a daughter. 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 She used to smoke 2 packs of cigarettes per day but reports that she quit smoking 50 years ago. She denies any history of alcohol use or drug use. Code status: DNR/DNI per patient request Healthcare power of building insulation installer: Lakshmi Shah (daughter) Smoking packs per day: 2 Smoking cigarettes per day: 40.0 Smoking status: Former smoker Tobacco type: cigarettes Alcohol intake: never Substance use: never Substance use type: does not use Do You Feel Safe in your Home?: Yes Lack of Transportation: YES Lack of Food: Never True Current Housing: I Have Housing Concerned About Future Housing: No Difficulty Paying Gas/Electric Bills: No Difficulty Paying for Meds: No Currently
[2023-08-15 08:13] LABS: INR 1.4; Prothrombin Time 17.5 Seconds (11.1-14.7)
[2023-08-15 08:16] LABS: Basophils Absolute Auto 0.1 K/mm3 (0.0-0.1); Basophils Percent Auto 0.8 % (0.2-1.2); Eosinophils Percent Auto 0.4 % (0-4.4); Hematocrit 37.3 % (37.0-47.0); Hemoglobin 11.1 g/dL (12.0-15.0); Immature Granulocyte Absolute 0.06 K/mm3 (0.00-0.031); Immature Granulocyte Percent A 0.7 % (0-0.5); Lymphocytes Absolute Auto 1.68 K/mm3 (0.9-3.2); Lymphocytes Percent Auto 20.1 % (18.3-44.2); Mean Corpuscular HGB Conc 29.8 g/dl (32-36); Mean Corpuscular Hemoglobin 25.9 pg (26-34); Mean Corpuscular Volume 86.9 fl (80-100); Mean Platelet Volume 10.8 fl (7.4-10.4); Monocytes Absolute Auto 0.3 K/mm3 (0.1-0.6); Monocytes Percent Auto 4.1 % (2.6-8.5); Neutrophils Absolute Auto 6.2 K/mm3 (1.3-6.7); Neutrophils Percent Auto 73.9 % (45.5-73.1); Partial Thromboplastin Time 36.1 Seconds (22.3-36.8); Platelet Count Result 260 k/mm3 (150-375); Red Blood Count 4.29 M/mm3 (4.2-5.4); Red Cell Distribution Width 20.6 % (11.5-14.5); White Blood Count 8.4 K/mm3 (4.5-10.0)
[2023-08-15 08:20] LABS: Cholesterol 147 mg/dL (0-200); HDL Direct 65 mg/dL; Triglycerides 56 mg/dL (<150)
[2023-08-15 08:22] LABS: Hemoglobin A1C 6.8 % (<5.7)
[2023-08-15 08:28] LABS: Troponin I 0.156 ng/mL (0.000-0.034)
[2023-08-15 08:31] LABS: LDL Cholesterol Direct 62 mg/dL
[2023-08-15] MEDS: DEXTROSE 5%/LACTATED RINGERS 1,000 ML 100 ML IV CONT (08:42)
[2023-08-15] MEDS: HEPARIN SOD/D5W 100 UNITS/ML 25,000 UNITS/250 ML BAG 8 UNITS IV CONT (08:42)
[2023-08-15] MEDS: HEPARIN SODIUM 5,000 UNITS/ML VIAL 4000 UNITS IV PUSH (08:44)
[2023-08-15] MEDS: ASPIRIN 81 MG CHEWABLE TABLET PO (08:45)
[2023-08-15 08:47] LABS: Anisocytosis 1+; Hypochromasia 1+; Ovalocytes 1+; Platelet Estimate Adequate (Adequate); Schistocytes None Seen
[2023-08-15] MEDS: SODIUM BICARBONATE TAB 325 MG TABLET PO ×2 (11:00→16:49)
[2023-08-15 11:51] LABS: Glucose Point of Care 217 mg/dl (65-105)
--- NOTE | 2023-08-15 11:57 | PM.CNCAR ---
Assessment and Plan Assessment and plan (1) Acute kidney injury: Code(s): N17.9 - Acute kidney failure, unspecified Status: Acute Assessment and Plan: Likely related to UTI. (2) Altered mental status: Code(s): R41.82 - Altered mental status, unspecified Status: Acute Assessment and Plan: Combination of hypoglycemia and urosepsis (3) Hypomagnesemia: Code(s): E83.42 - Hypomagnesemia Status: Acute Assessment and Plan: She has been given 2 g of IV magnesium. Will give an additional 2 g IV as her magnesium is markedly low (4) Nonrheumatic aortic (valve) stenosis: Code(s): I35.0 - Nonrheumatic aortic (valve) stenosis Status: Acute Assessment and Plan: Impending TAVR at [place] (5) Elevated troponin: Code(s): R79.89 - Other specified abnormal findings of blood chemistry Status: Acute Assessment and Plan: Not related to acute plaque rupture. This is likely secondary to mild demand ischemia in the setting of hypotension, urosepsis, aortic stenosis. Will discontinue heparin drip Plan Avoid over hydration. Overall plan is simply to resume home cardiac regimen. History of Present Illness History of Present Illness Consult date/time: 08/15/23 11:57 Requesting physician: Rae Sr APRN Consult reason: aortic stenosis and Other (Elevated troponin) Reason For Visit: reena,uti,elevated troponin Narrative: Reason for consultation: Elevated troponin, ?non-STEMI? Date of service 08/15/2023 Requesting provider: Rae Sr History patient is a 78-year-old female who is in the process of adding a a TAVR in [place] within the next month or so. As she came to the hospital because of altered mental status. She was found to be confused, hypoglycemic and uroseptic. In the process of workup troponins were drawn which were minimally elevated. She was started on heparin drip and admitted for further evaluation treatment. Patient actually denies any chest pain, shortness breath, syncope, presyncope, paroxysmal nocturnal dyspnea, orthopnea, edema palpitations. Review of Systems Review of Systems: All systems reviewed & are unremarkable except as noted in HPI and below Constitutional: Constitutional: Denies body ache(s) Eyes: Eyes: Denies blurry vision ENT: Reports Normal hearing present Cardiovascular: Cardiovascular: Denies chest pain Respiratory: Respiratory: Denies chest congestion Gastrointestinal: Gastrointestinal: Denies abdominal pain Genitourinary: Genitourinary: Denies hematuria Musculoskeletal: Musculoskeletal: Denies back pain Integumentary/Breasts: Skin/Breast: Denies dry skin Neurologic: Reports confusion Psychiatric: Psychiatric: Denies anxiety and Reports confusion Endocrine: Endocrine: Denies excessive sweating Hematologic/Lymphatic: Hematologic/Lymphatic: Denies easy bleeding Allergic/Immunologic: Allergic/Immunologic: Denies GI upset with certain foods PMFSH Past Medical History Medical History Abnormal CT scan, chest Congestive heart failure COPD (chronic obstructive pulmonary disease) Diabetes mellitus with insulin therapy GERD (gastroesophageal reflux disease) Gout Hyperlipidemia Surgical History Surgical History History of appendectomy History of coronary artery stent placement History of total hysterectomy with bilateral salpingo-oophorectomy (BSO) Status post cataract extraction of both eyes with insertion of intraocular lens Family History Family History Father Cerebrovascular accident Mother Myocardial infarction Mother Parkinson disease Sibling Cerebrovascular accident Sibling Cerebrovascular accident Sibling Cerebrovascular accident Sibling Cerebrovascular accident Sibling Cerebrovascular acci
--- NOTE | 2023-08-15 15:40 | PC.NURSE ---
Notified provider patient has no insulin orders. Blood glucose stable at this time, orders received.
[2023-08-15 15:44] LABS: Glucose Point of Care 197 mg/dl (65-105)
[2023-08-15] MEDS: PANTOPRAZOLE 40 MG TABLET PO (18:02)
[2023-08-15] MEDS: hydrOXYzine HCL 25 MG TABLET PO (18:02)
[2023-08-15 18:12] LABS: Basophils Absolute Auto 0.1 K/mm3 (0.0-0.1); Basophils Percent Auto 0.8 % (0.2-1.2); Eosinophils Absolute Auto 0.1 K/mm3 (0-0.3); Eosinophils Percent Auto 1.6 % (0-4.4); Hematocrit 32.9 % (37.0-47.0); Hemoglobin 9.4 g/dL (12.0-15.0); Immature Granulocyte Absolute 0.03 K/mm3 (0.00-0.031); Immature Granulocyte Percent A 0.4 % (0-0.5); Lymphocytes Absolute Auto 1.35 K/mm3 (0.9-3.2); Lymphocytes Percent Auto 18.3 % (18.3-44.2); Mean Corpuscular HGB Conc 28.6 g/dl (32-36); Mean Corpuscular Hemoglobin 26.5 pg (26-34); Mean Corpuscular Volume 92.7 fl (80-100); Mean Platelet Volume 11.5 fl (7.4-10.4); Monocytes Absolute Auto 0.5 K/mm3 (0.1-0.6); Monocytes Percent Auto 6.3 % (2.6-8.5); Neutrophils Absolute Auto 5.3 K/mm3 (1.3-6.7); Neutrophils Percent Auto 72.6 % (45.5-73.1); Nucleated Red Blood Cells Perc 0.3 % (0.0-0.2); Platelet Count Result 235 k/mm3 (150-375); Red Blood Count 3.55 M/mm3 (4.2-5.4); Red Cell Distribution Width 21.1 % (11.5-14.5); White Blood Count 7.4 K/mm3 (4.5-10.0)
[2023-08-15 18:30] LABS: Anisocytosis 1+; Hypochromasia 1+; Ovalocytes 1+; Platelet Estimate Adequate (Adequate); Schistocytes None Seen
--- NOTE | 2023-08-15 20:26 | PC.NURSE ---
This patient, Mayte Sanchez, was transferred to [306-2 ] on 08/15/23 at 2025. Personal belongings sent with patient. Report given to [ ]. Appropriate documentation sent with patient.
[2023-08-15] MEDS: AMITRIPTYLINE HCL 25 MG TABLET 50 MG PO (21:07)
[2023-08-15] MEDS: SIMVASTATIN 20 MG TABLET 40 MG PO (21:07)
[2023-08-16 06:14] VITALS: BP 139/75; PULSE 104; RESP 16; TEMP 36.6; O2SAT 95
[2023-08-16 06:23] LABS: Basophils Absolute Auto 0.1 K/mm3 (0.0-0.1); Basophils Percent Auto 0.9 % (0.2-1.2); Eosinophils Absolute Auto 0.4 K/mm3 (0-0.3); Eosinophils Percent Auto 4.1 % (0-4.4); Hemoglobin 9.7 g/dL (12.0-15.0); Immature Granulocyte Absolute 0.03 K/mm3 (0.00-0.031); Immature Granulocyte Percent A 0.3 % (0-0.5); Lymphocytes Absolute Auto 1.93 K/mm3 (0.9-3.2); Lymphocytes Percent Auto 22.1 % (18.3-44.2); Mean Corpuscular HGB Conc 30.3 g/dl (32-36); Mean Corpuscular Hemoglobin 25.8 pg (26-34); Mean Corpuscular Volume 85.1 fl (80-100); Mean Platelet Volume 10.3 fl (7.4-10.4); Monocytes Absolute Auto 0.4 K/mm3 (0.1-0.6); Monocytes Percent Auto 4.8 % (2.6-8.5); Neutrophils Absolute Auto 5.9 K/mm3 (1.3-6.7); Neutrophils Percent Auto 67.8 % (45.5-73.1); Platelet Count Result 249 k/mm3 (150-375); Red Blood Count 3.76 M/mm3 (4.2-5.4); Red Cell Distribution Width 20.5 % (11.5-14.5); White Blood Count 8.7 K/mm3 (4.5-10.0)
[2023-08-16 06:38] LABS: Alanine Aminotransferase 11 U/L (6-35); Albumin Level 3.3 g/dL (3.5-5.1); Alkaline Phosphatase 124 U/L (38-126); Anion Gap 6 mmol/L (4-12); Aspartate Amino Transferase 23 U/L (14-36); Bilirubin,Total 0.4 mg/dL (0.2-1.3); Blood Urea Nitrogen 53 mg/dL (7-17); Calcium 9.4 mg/dL (8.4-10.2); Carbon Dioxide 22 mmol/L (22-30); Chloride 112 mmol/L (98-107); Estimated CRCL calculation 33 ml/min; Estimated Glomerular Filt Rate 43; Glucose 121 mg/dL (65-110); Potassium 4.6 mmol/L (3.4-5.0); Sodium 140 mmol/L (137-145)
[2023-08-16 07:56] LABS: Glucose Point of Care 112 mg/dl (65-105)
[2023-08-16] MEDS: PANTOPRAZOLE 40 MG TABLET PO (09:13)
[2023-08-16] MEDS: hydrOXYzine HCL 25 MG TABLET PO ×2 (09:13→13:00)
[2023-08-16] MEDS: allopurinoL 300 MG TABLET PO (09:13)
[2023-08-16] MEDS: ESCITALOPRAM OXALATE 10 MG TABLET PO (09:13)
[2023-08-16] MEDS: SODIUM BICARBONATE TAB 325 MG TABLET PO (09:13)
[2023-08-16] MEDS: FUROSEMIDE 20 MG TABLET PO (09:13)
[2023-08-16] MEDS: methiMAzole 10 MG TAB PO (09:13)
[2023-08-16] MEDS: ASPIRIN 81 MG CHEWABLE TABLET PO (09:13)
--- NOTE | 2023-08-16 09:16 | P.PNIM_ITS ---
Progress Note: A&P Assessment and Plan (1) Acute UTI: Code(s): N39.0 - Urinary tract infection, site not specified Status: Acute Assessment and Plan: U/A concerning for UTI in patient with fall * urine culture and blood cultures pending * received IVF * lactic normal * started on Rocephin 1 gram 08/15: * Urine culture pending and blood culture with no growth to date (2) Elevated troponin: Code(s): R79.89 - Other specified abnormal findings of blood chemistry Status: Acute Assessment and Plan: * 0.053-->0.156-->0.156 * cards was initially consulted and started on heparin gtt for nstemi with concerns of chest pain. At time of exam patient is denying chest pain and does not think she ever was having chest pain. * Suspected troponin leak from hypotension and aortic stenosis Resolved (3) Nonrheumatic aortic (valve) stenosis: Code(s): I35.0 - Nonrheumatic aortic (valve) stenosis Status: Acute Assessment and Plan: scheduled 08/21/23 to have TAVR at [facility] * hold eliquis and plavix for TAVR ?? * will follow up with amy about this tomorrow 08/15: * (4) Acute kidney injury: Code(s): N17.9 - Acute kidney failure, unspecified Status: Acute Assessment and Plan: Cr 1.7 on admission * 1.5 today after 2 L IVF * Stopping IV fluids now, can have a diet * repeat bmp tomorrow 08/15: * Cr 1.2 * UOP 1200 ml and 4 incontinence episodes (5) Hypomagnesemia: Code(s): E83.42 - Hypomagnesemia Status: Acute Assessment and Plan: MG 1.1 * has received a total of 4 gram of IV magnesium today * tele 08/15: * Magnesium 2.0 today (6) Type 2 diabetes mellitus with hyperglycemia, with long-term current use of insulin: Code(s): E11.65 - Type 2 diabetes mellitus with hyperglycemia; 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 Ranging 8.5-7.3 g/dL during last admission 06/2023. * Hemoglobin 9.7 today * Iron deficiency on labs during last admission. Iron levels improved with BID ferrous sulfate but anemia persisted. * Heme/onc was consulted during last admission and recommended outpatient workup for possible MDS * Monitor H/H * Transfused for hemoglobin less than 7 g/dL Plan Feeding: diabetic diet Analgesia: tylenol Thromboembolic prophylaxis: SCD's Ulcer prophylaxis: PPI Glycemic control: AC/HS with moderate SSI Bowel regimen: Miralax PRN Lines: PIV Antibiotics: ROcehpin Disposition: Return to [facility] when medically ready. PT/OT consults and rec's appreciated. Subjective Date/time seen: 08/16/23 09:16 Interval history: This is a pleasantly confused 78-year-old female with a past medical history of COPD, type 2 diabetes, gout, hyperlipidemia, CAD with stent and aortic stenosis who is scheduled to have a TAVR at [facility] on 08/21/2023.? The patient presented through the ER via EMS after staff at [facility] found her on the floor of her apartment. 08/15: Review of Systems Review of Systems: All systems reviewed & are unremarkable excep
--- NOTE | 2023-08-16 09:16 | PM.IMPN ---
Progress Note: A&P Assessment and Plan (1) Acute UTI: Code(s): N39.0 - Urinary tract infection, site not specified Status: Acute Assessment and Plan: U/A concerning for UTI in patient with fall urine culture and blood cultures pending received IVF lactic normal started on Rocephin 1 gram 08/15: Urine culture pending and blood culture with no growth to date (2) Elevated troponin: Code(s): R79.89 - Other specified abnormal findings of blood chemistry Status: Acute Assessment and Plan: 0.053-->0.156-->0.156 cards was initially consulted and started on heparin gtt for nstemi with concerns of chest pain. At time of exam patient is denying chest pain and does not think she ever was having chest pain. Suspected troponin leak from hypotension and aortic stenosis Resolved (3) Nonrheumatic aortic (valve) stenosis: Code(s): I35.0 - Nonrheumatic aortic (valve) stenosis Status: Acute Assessment and Plan: scheduled 08/21/23 to have TAVR at [facility] hold eliquis and plavix for TAVR ?? will follow up with amy about this tomorrow 08/15: (4) Acute kidney injury: Code(s): N17.9 - Acute kidney failure, unspecified Status: Acute Assessment and Plan: Cr 1.7 on admission 1.5 today after 2 L IVF Stopping IV fluids now, can have a diet repeat bmp tomorrow 08/15: Cr 1.2 UOP 1200 ml and 4 incontinence episodes (5) Hypomagnesemia: Code(s): E83.42 - Hypomagnesemia Status: Acute Assessment and Plan: MG 1.1 has received a total of 4 gram of IV magnesium today tele 08/15: Magnesium 2.0 today (6) Type 2 diabetes mellitus with hyperglycemia, with long-term current use of insulin: Code(s): E11.65 - Type 2 diabetes mellitus with hyperglycemia; 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 Ranging 8.5-7.3 g/dL during last admission 06/2023. Hemoglobin 9.7 today Iron deficiency on labs during last admission. Iron levels improved with BID ferrous sulfate but anemia persisted. Heme/onc was consulted during last admission and recommended outpatient workup for possible MDS Monitor H/H Transfused for hemoglobin less than 7 g/dL Plan Feeding: diabetic diet Analgesia: tylenol Thromboembolic prophylaxis: SCD's Ulcer prophylaxis: PPI Glycemic control: AC/HS with moderate SSI Bowel regimen: Miralax PRN Lines: PIV Antibiotics: ROcehpin Disposition: Return to [facility] when medically ready. PT/OT consults and rec's appreciated. Subjective Date/time seen: 08/16/23 09:16 Interval history: This is a pleasantly confused 78-year-old female with a past medical history of COPD, type 2 diabetes, gout, hyperlipidemia, CAD with stent and aortic stenosis who is scheduled to have a TAVR at [facility] on 08/21/2023.? The patient presented through the ER via EMS after staff at [facility] found her on the floor of her apartment. 08/15: Review of Systems Review of Systems: All systems reviewed & are unremarkable except as noted in HPI and below Exam Narrative: General: well appearing, appears stated age. HEENT: normocephalic, atraumatic. Mucous membranes moist. EOMI, PERRLA, bilateral sclera anicteric, no conjunctival injection. Neck supple without JVD, lymphadenopathy, or bruit. Respiratory: clear to ascultation bilaterally. No rales/rhonic/wheezes. Cardiovascular: Regular rate and rhythm, normal S1-S2 upon ascultation. No murmurs, rubs, or clicks. PMI is nondisplaced, capillary refill less than 3 second. Abdomen:
[2023-08-16] MEDS: FLUTICASONE/UMECLIDIN/VILANTER 100-62.5-25 MCG ELLIPTA 1 PUFF INHALATION (09:40)
[2023-08-16 11:21] LABS: Glucose Point of Care 164 mg/dl (65-105)
[2023-08-16 14:00] VITALS: BP 98/56; PULSE 91; RESP 18; TEMP 36.6; O2SAT 96
--- NOTE | 2023-08-16 15:09 | PM.DS ---
DS: Admitting Diagnosis Discharge Date 08/16 Admitting Diagnosis fall, ams DS: Discharge Diagnosis Discharge Diagnosis Plan Assessment and plan (1) Acute UTI: ?Code(s): N39.0 - Urinary tract infection, site not specified ?Status:?Acute ?Assessment and Plan: U/A concerning for UTI in patient with fall urine culture and blood cultures pending received IVF lactic normal started on Rocephin 1 gram (2) Elevated troponin: ?Code(s): R79.89 - Other specified abnormal findings of blood chemistry ?Status:?Acute ?Assessment and Plan: 0.053-->0.156-->0.156 cards was initially consulted and started on heparin gtt for nstemi with concerns of chest pain. At time of exam patient is denying chest pain and does not think she ever was having chest pain. Suspected troponin leak from hypotension and aortic stenosis(3) Nonrheumatic aortic (valve) stenosis: ?Code(s): I35.0 - Nonrheumatic aortic (valve) stenosis ?Status:?Acute ?Assessment and Plan: scheduled 08/21/23 to have TAVR at [facility] hold eliquis and plavix for TAVR ?? will follow up with amy about this tomorrow?(4) Acute kidney injury: ?Code(s): N17.9 - Acute kidney failure, unspecified ?Status:?Acute ?Assessment and Plan: Cr 1.7 on admission 1.5 today after 2 L IVF Stopping IV fluids now, can have a diet repeat bmp tomorrow (5) Hypomagnesemia: ?Code(s): E83.42 - Hypomagnesemia ?Status:?Acute ?Assessment and Plan: MG 1.1 has received a total of 4 gram of IV magnesium today tele(6) Type 2 diabetes mellitus with hyperglycemia, with long-term current use of insulin: ?Code(s): E11.65 - Type 2 diabetes mellitus with hyperglycemia; Z79.4 - intermediate manager (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 6.8% diabetic diet moderate dose SSI ac/hs accu checks hypoglycemia protocol Plan Feeding: diabetic diet Analgesia: tylenol Thromboembolic prophylaxis: SCD's Ulcer prophylaxis: PPI Glycemic control: AC/HS with moderate SSI Bowel regimen: Miralax PRN Lines: PIV Antibiotics: ROcehpin? Disposition: Return to the [facility] when medically ready. PT/OT consults and rec's appreciated. DS: Summary Hospital Course Reason for hospitalization: urinary tract infection Hospital Course: This is a pleasantly confused 78-year-old female with a past medical history of COPD, type 2 diabetes, gout, hyperlipidemia, CAD with stent and aortic stenosis who is scheduled to have a TAVR at [facility] on 08/21/2023.? The patient presented through the ER via EMS after staff at [facility] found her on the floor of her apartment.? When I inquired with the patient about falling and she states she did not fall but she was found sitting on the floor.? She also says that her blood sugar was low at that time but she does not recall how low. She does not remember most of the episode.? There was some confusion about whether not she was having chest pain and shortness of breath. At time my assessment she denies headache, dizziness, chest pain, shortness a breath, abdominal pain, nausea, vomiting, or dysuria. In the ER she was found have a hemoglobin of 10.3, neutrophils 77.2, PT 17.5, chloride 116 carbon dioxide 17, BUN 72, creatinine 1.7, troponin 0.053, and UA concerning for infection.? Chest x-ray shows no acute abnormality and head CT negative.? Cervical spine CT negative and lumbar spine shows chronic L2 compression fracture with degenerative joint change and moderate to large hiatal hernia partially imaged.? Urine and blood cultures were collected.? EKG showed ventricular rate 101, sinus tachycardia, possible lateral myocardial infarction.? She received 2 L of NS, ASA 324 mg, 1 g Rocephin, and 2 g of magnesium and was admitted to the hospitalist service for further workup. Time Spent with Patient Time attestation: Total time spent providing and/or coordinating discharge servi
== END 2023-08-16 16:00 ==
LOC: ANHED 04:03 → ANHIMU 06:53 → ANH3MEDSUR 08-16 08:58 → ANHIMU 08-17 08:14
PROVIDERS: Nurse Practitioner Acute Care; Admitting Provider Internal Medicine; Emergency Provider Emergency Medicine; PCP Physician Assistant Medical; Visit Provider Family Medicine
DX: N17.9 Acute kidney failure, unspecified (principal); N39.0 Urinary tract infection, site not specified; E83.42 Hypomagnesemia; R79.89 Other specified abnormal findings of blood chemistry; E11.65 Type 2 diabetes mellitus with hyperglycemia; J44.9 Chronic obstructive pulmonary disease, unspecified; I35.0 Nonrheumatic aortic (valve) stenosis; I25.10 Atherosclerotic heart disease of native coronary artery without angina pectoris; E78.5 Hyperlipidemia, unspecified; K21.9 Gastro-esophageal reflux disease without esophagitis; M10.9 Gout, unspecified; I50.9 Heart failure, unspecified; Z20.822 Contact with and (suspected) exposure to COVID-19; Z79.51 Long term (current) use of inhaled steroids; Z79.4 Long term (current) use of insulin; Z79.891 Long term (current) use of opiate analgesic; Z95.5 Presence of coronary angioplasty implant and graft; Z87.891 Personal history of nicotine dependence; Z79.02 Long term (current) use of antithrombotics/antiplatelets; Z79.01 Long term (current) use of anticoagulants
CPT/HCPCS: 36415; 36600; 70450; 71045; 72125; 72131; 80048; 80053; 80061; 81001; 82550; 82805; 82948; 83036; 83605; 83735; 83880; 84145; 84484; 85025; 85610; 85730; 87040; 87077; 87086; 87088; 87186; 87637; 93005; 93306; 96365; 96366; 96375; 96376; 97161; 97165; 99285; A9270; G0378; J0696; J1644; J1650; J3475; J7030; J7121